=== PATIENT | female | born 1945 | race Caucasian/White ===

== ENCOUNTER 2017-11-29 09:09 | Observation (INO) | payer MEDICARE ==
[2017-11-29] MEDS ORDERED: Morphine 4 MG/ML VIAL ONE ×2 (09:29→12:18)
[2017-11-29] MEDS ORDERED: Ondansetron HCl/PF 4 MG/2 ML Vial ONE ×2 (09:29→12:18)
[2017-11-29] MEDS ORDERED: ISOVUE-370 76%-LOCM 1 ML ONE (10:09)
[2017-11-29 10:16] LABS: ALT (SGPT) 9 U/L (8-55); AST (SGOT) 20 U/L (5-34); Albumin 3.2 g/dL (3.4-4.8); Alkaline Phosphatase 112 U/L (40-150); Anion Gap 12 mmol/L (10-20); BUN (Urea Nitrogen) 5 mg/dL (9.8-20.1); Bilirubin, Total 0.5 mg/dL (0.2-1.2); Calc. Creatinine Clearance 0 mL/min (70-130); Calcium 8.7 mg/dL (7.8-10.44); Carbon Dioxide 30 mmol/L (23-31); Chloride 98 mmol/L (98-107); Estimated GFR-MDRD 78; Glucose 101 mg/dL (80-115); Lipase 7 U/L (8-78); Magnesium 1.5 mg/dL (1.6-2.6); Potassium 3.8 mmol/L (3.5-5.1); Protein, Total 6.2 g/dL (6.0-8.3); Sodium 136 mmol/L (136-145)
[2017-11-29 10:19] LABS: CKMB 0.7 ng/mL (0-6.6); Troponin I Less than 0.010 ng/mL (< 0.028)
[2017-11-29 10:20] LABS: #Eosinphils 0.1 thou/uL (0.0-0.7); #Lymphocytes 0.9 thou/uL (1.20-3.40); #Monocytes 0.4 thou/uL (0.11-0.59); #Neutrophils 4.7 thou/uL (1.40-6.50); %Basophils 0.7 % (0.0-1.0); %Eosinophils 1.7 % (0.0-10.0); %Lymphocytes 14.3 % (21.0-51.0); %Neutrophils 76.3 % (42.0-75.0); MDiff Complete? YES; Macrocytosis MODERATE=16-30 cells (100X) (0-5/hpf); Mean Corpuscular HGB CONC 34.3 g/dL (32.0-36.0); Mean Corpuscular Hemoglobin 37.5 pg (27.0-31.0); Mean Platelet Volume 6.9 fL (7.4-10.4); PLT Morphology Comment Appears Adequate; Platelet Count 211 thou/uL (130-400); RBC Distribution Width 13.1 % (11.5-14.5); Red Blood Cell (RBC) Count 3.72 mill/uL (4.20-5.40); White Blood Cell (WBC) Count 6.1 thou/uL (4.8-10.8)
--- NOTE | 2017-11-29 10:51 | RAD ---
PORTABLE AP CHEST: Date: 11/29/17 HISTORY: Weakness, nausea and vomiting for 3-4 days. UTI. COMPARISON: 09/02/16. FINDINGS: Cardiac silhouette and pulmonary vasculature are within normal limits. The right lung apex is partial ly obscured due to patient's overlying jaw and mandible. Lungs are otherwise clear. Degenerative rothman ges are seen in the spine. Vascular calcifications seen in the thoracic aorta. There has been no inte rval change from the prior study. IMPRESSION: No acute cardiopulmonary process. POS: JAYE
--- NOTE | 2017-11-29 11:43 | CT ---
CT ABDOMEN AND PELVIS WITH IV CONTRAST: Date: 11/29/17 HISTORY: Nausea, vomiting, decreased appetite, dark-colored urine, low back pain. FINDINGS: Lower thorax demonstrates evidence of old granulomatous disease. A small hiatal hernia is present. Ca lcified granulomas are seen in the spleen. The liver demonstrates decreased attenuation consistent wi th fatty infiltration. No hepatic mass or abnormal biliary ductal dilatation is seen. No calcified ga llstones are identified. The pancreas, adrenal glands, and kidneys appear normal. No free air, free fluid, or lymphadenopathy is seen in the abdomen or pelvis. Uterus is present with a IUD. The small bowel loops are not abnormally dilated. There is colonic diverticulosis without evid ence of diverticulitis. There are vascular calcifications without evidence of aneurysmal dilatation o f the abdominal aorta. Degenerative changes are present in the spine. There is wedge compression of L 3 vertebral body. IMPRESSION: 1. Old granulomatous disease. 2. Fatty liver. 3. Small hiatal hernia. 4. Colonic diverticulosis. POS: OFF
[2017-11-29 12:42] LABS: Bilirubin Negative (Negative); Blood, Urine Small (Negative); Glucose, Urine (Dipstick) Negative (Negative); Leukocyte Large (Negative); Nitrite Negative (Negative); Protein, Urine (Dipstick) Negative (Neg-Trace); Urobilinogen 0.2 mg/dL (0.2-1.0); pH, Urine 8.5 (5.0-9.0)
[2017-11-29 12:43] LABS: Clarity CLEAR (Clear)
[2017-11-29 12:45] LABS: Bacteria/HPF 4+ HPF (None Seen); Hyaline Casts/LPF NONE SEEN LPF (0-3 Hyaline); Squamous Epithelial 0-3 HPF (0-3); WBC/HPF 21-50 HPF (0-3)
[2017-11-29] MEDS ORDERED: cefTRIAXone\\ROCEPHIN 1 GM VIAL ONE (13:08)
--- NOTE | 2017-11-29 14:23 | PDOC.FPRHP ---
- History of Present Illness Chief Complaint: Nausea/Vomiting, and back pain History of Present Illness: 72yo F with PMH of presents with 5 day history of worsening nausea and vomiting. denies hematemesis. Last vomiting was today at 0600, vomiting less than 5 times per day. Pt reports very limited PO intake in the last 5 days due to nausea. Related symptoms of back pain in the "small of the back" bilaterally. Back pain has been constant and also worsening. Pain is exacerbated by movement and turning over in bed. Pt reports dark urine for 2 weeks, no dysuria, no hematuria. Pt has hx of UTI x2. No recent hospitalizations, no recent ABX treatment. - Allergies/Adverse Reactions Allergies Allergy/AdvReac Type Severity Reaction Status Date / Time codeine AdvReac Intermediate Verified 07/09/14 18:31 - Home Medications Medication Instructions Recorded Confirmed Type Furosemide [Lasix] 40 mg PO DAILY #0 tab 07/10/14 11/29/17 Rx Lisinopril [Zestril] 10 mg PO DAILY #0 tab 07/10/14 11/29/17 Rx Pantoprazole [Protonix] 40 mg PO DAILY #0 tab 07/10/14 11/29/17 Rx Acetaminophen [Tylenol Regular 650 mg PO Q4H PRN #0 tab 09/04/16 11/29/17 Rx Strength] Atorvastatin Calcium [Lipitor] 40 mg PO HS #30 tab 09/04/16 11/29/17 Rx Ciprofloxacin [Cipro] 500 mg PO 0600,2000 #24 tab 09/04/16 11/29/17 Rx Folic Acid [Folvite] 1 mg PO DAILY tab 09/04/16 11/29/17 Rx Ibuprofen [Motrin] 800 mg PO Q6H PRN #0 tab 09/04/16 11/29/17 Rx Loperamide HCl [Imodium] 2 mg PO PRN PRN #0 cap 09/04/16 11/29/17 Rx Metoprolol Succinate [Toprol XL] 25 mg PO DAILY tab 09/04/16 11/29/17 Rx predniSONE 20 mg PO DAILY #40 tab 09/04/16 11/29/17 Rx - History PMHx: CHF, HLD, GERD, Psoriasis PSHx: none FHx: Mother- breast cancer, Father- CAD Social: Tobacco- active, 60 pack years, EtOH- 14+ drinks per week "1mix drink in morning and at least 1 in evening", Drugs- denies - Review of Systems General: reports: fatigue. denies: fever/chills ENT: denies: nasal congestion, rhinorrhea Respiratory: reports: cough. denies: shortness of breath Cardiovascular: denies: chest pain, palpitation Gastrointestinal: reports: nausea, vomiting. denies: diarrhea, constipation Skin: denies: rashes, lesions Neurological: denies: syncope, seizure - Vital signs BP: [159/85] HR: [83] RR: [18] Tmax: [98.5] Pox: [94]% on [RA] Wt: [81kg] - Physical Exam Constitutional: NAD, awake, alert and oriented HEENT: normocephalic and atraumatic, EOMI, conjunctiva clear, MMM Heart: RRR, normal S1/S2, no murmurs/rubs/gallops, no edema -Lungs: decreased breath sounds bilaterally R Lung CTA, L lung feint inspiratory crackles at mid lung. symetric chest expansion Abdomen: soft, non-tender, bowel sounds present -Musculoskeletal: L flank pain to percussion -Skin: scaling and flaking on back and bilateral lower extremeties Psychiatric: normal mood and affect FMR H&P: Results - Labs Result Diagrams: 11/29/17 09:44 11/29/17 09:43 Lab results: WBC 6.1 thou/uL (4.8-10.8) 11/29/17 09:44 Hgb 14.0 g/dL (12.0-16.0) 11/29/17 09:44 Hct 40.7 % (36.0-47.0) 11/29/17 09:44 MCV 109.0 fL (78.0-98.0) H 11/29/17 09:44 Plt Count 211 thou/uL (130-400) 11/29/17 09:44 Neutrophils % 76.3 % (42.0-75.0) H 11/29/17 09:44 Sodium 136 mmol/L (136-145) 11/29/17 09:43 Potassium 3.8 mmol/L (3.5-5.1) 11/29/17 09:43 Chloride 98 mmol/L (98-107) 11/29/17 09:43 Carbon Dioxide 30 mmol/L (23-31) 11/29/17 09:43 BUN 5 mg/dL (9.8-20.1) L 11/29/17 09:43 Creatinine 0.74 mg/dL (0.6-1.1) 11/29/17 09:43 Glucose 101 mg/dL (80-115) 11/29/17 09:43 Calcium 8.7 mg/dL (7.8-10.44) 11/29/17 09:43 Total Bilirubin 0.5 mg/dL (0.2-1.2) 11/29/17 09:43 AST 20 U/L (5-34) 11/29/17 09:43 ALT 9 U/L (8-55) 11/29/17 09:43 Alkaline Phosphatase 112 U/L (40-150) 11/29/17 09:43 CK-MB (CK-2) 0.7 ng/mL (0-6.6) 11/29/17 09:44 B-Natriuretic Peptide 256.0 pg/mL (0-100) H 11/29/17 09:44 Serum Total Protein 6.2 g/dL (6.0-8.3) 11/29/17 09:43 Albumin 3.2 g/dL (3.4-4.8) L 11/29/17 09:43 Lipase 7 U/L (8-78) L 11/29/17 09:43 Urine Ketones Negative mg/dL (Negative) 11/29/17 12:10 Urine Blood Small (Negative) H 11/29/17 12:10 Urine Nitrite Negative (Negative) 11/29/17 12:10 Ur Leukocyte Esterase Large (Negative) H 11/29/17 12:10 Urine RBC 4-6 HPF (0-3) 11/29/17 12:10 Urine WBC 21-50 HPF (0-3) H 11/29/17 12:10 Ur Squamous Epith Cells 0-3 HPF (0-3) 11/29/17 12:10 Urine Bacteria 4+ HPF (None Seen) H 11/29/17 12:10 FMR H&P: A/P - Problem List (1) Pyelonephritis, acute Current Visit: No Status: Acute Code(s): N10 - ACUTE PYELONEPHRITIS (2) Pyuria Current Visit: No Status: Acute Code(s): N39.0 - URINARY TRACT INFECTION, SITE NOT SPECIFIED (3) Alcohol abuse Current Visit: No Status: Acute Code(s): F10.10 - ALCOHOL ABUSE, UNCOMPLICATED (4) CHF (congestive heart failure) Current Visit: No Status: Acute Code(s): I50.9 - HEART FAILURE, UNSPECIFIED (5) HLD (hyperlipidemia) Current Visit: No Status: Acute Code(s): E78.5 - HYPERLIPIDEMIA, UNSPECIFIED (6) Psoriasis Current Visit: No Status: Acute Code(s): L40.9 - PSORIASIS, UNSPECIFIED - Plan Pyelonephritis/pyuria vs. UTI A- Pt has pmh of UTI and has had dark urine [id number] with 5 days of lower back pain. L flank pain. UA- 21-50 WBC and 4+ bacteria and small urine blood. Pt vitals are stable SIRS (-) in all categories. WBC 6.1. Given rocephin and zofran in ED P- Contine tx with rocephin 1gm daily -UCx Nausea/Vomiting A- Pt reports improvement of symptoms with zofran in ED P- NS 75ml/hr -encourage PO intake -Zofran prn Alcohol Abuse A- Pt reports drinking at least two mix drinks per day starting in the AM P- GAYLA protocol CHF -BNP 256, was 118 1 year ago. Pt not complaining of cardiopulmonary symptoms -caution with fluids, monitor symptoms of fluid overload -home meds HLD -home meds Psoriasis -reports to be at baseline lvl of symptoms with no current medical treatment -no meds at this time, FMR H&P: Upper Level - Pertinent history 72 yr old female with PMH as listed above who presents for 5 days of increased N /V. She reports dark urine for 2 weeks. Today she just started dry heaving and decided to come in. She reports minimal intake for last 4 days and no BM for 4 days. She reports some low back pain going on for about 2-3 months. She denies fever and chills. Denies hematuria. She has recently moved close to her daughter and living in an . She doesn't like the situation. She drinks alcohol, mixed drinks a couple times a day but reports less use in the last month. She smokes a pack a day. - Pertinent findings Gen: NAD, obese Heart: RRR, no M/R/G Lungs: CTAB, no W/R/R Abd: mild tenderness in RLQ, non tender, BS normal active Ext: No edema in BLE trop neg x 1 WBC: 6.1 HGB: 14. HCT: 40.7 BNP 256 Lipase: 7 BUN: 5 cr: 0.74 EKG: q wave in lead II, III, no ST changes, Normal sinus rhythm - Plan Date/Time: 11/29/17 1422 I, [Marilu Maynard], have evaluated this patient and agree with findings/plan as outlined by healthcare administration internship resident. Pertinent changes/additions are listed here. 72 yr old female presents with N/V and low back pain UTI -afebrile, no tachycardia, no leukocytosis, non tachypnic -started on ceftriaxone in ER, will continue -500 ml bolus given in ER -cont on light fluids until tolerating PO -hx of peterson sensitive e coli and pseudmonas UTI Nausea/vomiting that is likely 2/2 to UTI -no evidence of pyelonephritis on CT. - zofran or phenergan if needed Mild hypovolemia -fluids as above HFpEF -last ECHO in 06/2014 with EF 55-60%, diastolic dysfunction -BNP 256, up from 118 during hospitalization 1 year ago -asymptomatic, no exacerbation Alcohol abuse -no hx of DTs or withdrawals -reports minimal alcohol use in last month -ASE protocol tobacco abuse -1 pk a day for 60 years -nicoderm patch HTN -cont home meds HLD -cont home meds hx of retained IUD chronic cutaneous psoriasis -encourage hygeine and moisturizer hx of gout intrigo -nystatin cream BID Hypomagnesemia -slow mag BID x 2 Code status: FULL DVT ppx: lovenox GI ppx: none, PRN tums PCP: Rox DEMPSEY Attending Addendum - Attending Addendum Date/Time: 11/29/17 1901 I personally evaluated the patient and discussed the management with Dr. Conte I agree with the History, Examination, Assessment and Plan documented above with any addition or exceptions noted below.History of prior T7 fracture, CT abdomen note incidental wedging at L3 of questionable significance regarding LBP. Agree with rehydration, antiemetics, Rocephin and continued observation. Current living situation needs assessment for best options available to patient. Lab notable for marked macrocytosis (history of ETOH abuse).
[2017-11-29 16:10] VITALS: BMI 29.9
[2017-11-29] MEDS ORDERED: Ondansetron HCl/PF 4 MG/2 ML Vial IVP PRN (16:26)
[2017-11-29] MEDS ORDERED: Ondansetron ODT 4 MG TAB SL PRN (16:26)
[2017-11-29] MEDS ORDERED: Acetaminophen 650 MG Suppository PR PRN (17:12)
[2017-11-29] MEDS: Ondansetron HCl/PF 4 MG/2 ML Vial IVP PRN (17:21)
[2017-11-29] MEDS ORDERED: Nicotine 14 MG PATCH TD SCH (18:00)
[2017-11-29] MEDS ORDERED: Promethazine 25 MG TAB PO PRN (18:41)
[2017-11-29] MEDS: Sodium Chloride 0.9% 1,000 ML IV SCH (18:44)
[2017-11-29] MEDS: Famotidine 20 MG TAB PO SCH (19:59)
[2017-11-29] MEDS ORDERED: Atorvastatin Calcium 40 MG TAB PO SCH (21:00)
[2017-11-30] MEDS ORDERED: Acetaminophen 325 MG TAB PO PRN (01:11)
[2017-11-30] MEDS: Ondansetron HCl/PF 4 MG/2 ML Vial IVP PRN (02:14)
[2017-11-30 04:29] LABS: #Eosinphils 0.2 thou/uL (0.0-0.7); #Lymphocytes 1.1 thou/uL (1.20-3.40); #Monocytes 0.6 thou/uL (0.11-0.59); #Neutrophils 4.8 thou/uL (1.40-6.50); %Basophils 0.5 % (0.0-1.0); %Eosinophils 2.6 % (0.0-10.0); %Monocytes 8.6 % (0.0-10.0); %Neutrophils 71.4 % (42.0-75.0); Hemoglobin 13.1 g/dL (12.0-16.0); Mean Corpuscular Hemoglobin 37.6 pg (27.0-31.0); Mean Platelet Volume 7.2 fL (7.4-10.4); Platelet Count 211 thou/uL (130-400); RBC Distribution Width 13.5 % (11.5-14.5); Red Blood Cell (RBC) Count 3.48 mill/uL (4.20-5.40); White Blood Cell (WBC) Count 6.7 thou/uL (4.8-10.8)
[2017-11-30 04:58] LABS: Anion Gap 15 mmol/L (10-20); BUN (Urea Nitrogen) 5 mg/dL (9.8-20.1); Calc. Creatinine Clearance 92 mL/min (70-130); Calcium 8.3 mg/dL (7.8-10.44); Carbon Dioxide 26 mmol/L (23-31); Chloride 102 mmol/L (98-107); Estimated GFR-MDRD 79; Glucose 87 mg/dL (80-115); Potassium 3.7 mmol/L (3.5-5.1); Sodium 139 mmol/L (136-145)
--- NOTE | 2017-11-30 05:28 | PDOC.FM ---
- Subjective Subjective: No acute events overnight. Patient states she is still having significant pain in her lower back. States it is about a 6-7/10 in severity while lying still and is almost unbearable while trying to walk or make any other movements. N/V have been well controlled & is tolerating food PO. Denies any chest pain, SOB, dysuria, hematuria. Reports that she has trouble swallowing pills and would like to have small antibiotic pills to go home on if leaving today. - Objective MAR Reviewed: Yes Vital Signs & Weight: Vital Signs (12 hours) Temp Pulse Resp BP Pulse Ox 11/30/17 00:00 97.6 F 78 12 133/78 96 11/29/17 20:00 97.4 F L 90 12 11/29/17 19:16 97.4 F L 90 12 166/89 H 92 L 11/29/17 17:50 97.8 F 85 12 Weight Weight 81.465 kg Result Diagrams: 11/30/17 03:30 11/30/17 03:30 Radiology Reviewed by me: Yes (Abd CT--> diverticulosis; no perinephric stranding or pyelo) <Mallory Alexander - Last Filed: 11/30/17 13:08> - Objective Vital Signs & Weight: Vital Signs (12 hours) Temp Pulse Resp BP BP Pulse Ox 11/30/17 11:30 98.1 F 78 16 161/80 H 100 11/30/17 09:19 161/76 H 11/30/17 08:15 98.3 F 80 18 11/30/17 07:40 98.3 F 80 18 161/76 H 93 L Weight Admit Weight 81.193 kg Weight 81.465 kg I&O: 11/29/17 11/30/17 12/01/17 06:59 06:59 06:59 Intake Total 760 1451 Balance 760 1451 Result Diagrams: 11/30/17 03:30 11/30/17 03:30 <Lia Early - Last Filed: 11/30/17 19:33> Phys Exam - Physical Examination Constitutional: NAD HEENT: moist MMs Neck: supple, full ROM Respiratory: no wheezing, no rales, no rhonchi, clear to auscultation bilateral Cardiovascular: RRR, no significant murmur Gastrointestinal: soft, non-tender, no distention, positive bowel sounds Musculoskeletal: no edema L-sided CVA tenderness Neurological: non-focal, normal sensation, moves all 4 limbs Psychiatric: normal affect, A&O x 3 Skin: no rash, normal turgor <Mallory Alexander - Last Filed: 11/30/17 13:08> Dx/Plan (1) Pyelonephritis, acute Code(s): N10 - ACUTE PYELONEPHRITIS Status: Acute (2) CHF (congestive heart failure) Code(s): I50.9 - HEART FAILURE, UNSPECIFIED Status: Chronic (3) HTN (hypertension) Code(s): I10 - ESSENTIAL (PRIMARY) HYPERTENSION Status: Acute (4) HLD (hyperlipidemia) Code(s): E78.5 - HYPERLIPIDEMIA, UNSPECIFIED Status: Acute (5) Alcohol abuse Code(s): F10.10 - ALCOHOL ABUSE, UNCOMPLICATED Status: Acute (6) Psoriasis Code(s): L40.9 - PSORIASIS, UNSPECIFIED Status: Acute (7) Macrocytic Code(s): D75.89 - OTHER SPECIFIED DISEASES OF BLOOD AND BLOOD-FORMING ORGANS Status: Acute (8) Gout Code(s): M10.9 - GOUT, UNSPECIFIED Status: Acute (9) GERD (gastroesophageal reflux disease) Code(s): K21.9 - GASTRO-ESOPHAGEAL REFLUX DISEASE WITHOUT ESOPHAGITIS Status: Acute - Plan Plan: 72YOF w/ PMH significant for CHF, HTN, HLD & EtOH abuse who presents w/ a CC of progressively worsening N/V for past 5 days with associated dark urine & flank pain for the last 2 weeks. 1. Pyelonephritis/pyuria vs. UTI w/ associated N/V: - UA significant for UTI but Abd CT not convincing for pyelo. Will continue with IV Abx for one more day and likely d/c home later today on PO Abx if vitals remain stable and patient is having adequate PO intake. - Will consider deescalating IVFs today as patient is tolerating food and liquids well PO. - Will continue zofran PRN for N/V. - Urine culture pending. Will adjust Abx accordingly as needed pending sensitivities. 2. h/o Alcohol Abuse - Pt reports drinking a minimum of 2 whiskey drinks/day for a number of years ( one of which is first thing in the AM). - Will continue GAYLA protocol. 3. CHF - BNP 256 on admission which is slightly increased from 118 ~1 year ago. - No concern for acute exacerbation at this time as patient denies any cardiopulmonary sxs and lungs CTAB w/o LE edema. - Will consider deescalating IVFs as patient is tolerating HH diet well PO. - Will continue home meds. 4. HLD - Aware, will continue home meds. 5. HTN: - Aware, will continue home meds. 6. GERD: - Aware, will continue home meds. 7. Psoriasis -Aware, patient not on any home meds at this time. Dispo: Possible d/c home later today on PO antibiotics. <Mallory Alexander - Last Filed: 11/30/17 13:08> Attending Addendum - Attending Addendum Date/Time: 11/30/171929 I personally evaluated the patient at 1225 pm and discussed the management with Dr. Alexander. I agree with the History, Examination, Assessment and Plan documented above with any addition or exceptions noted below. UTI- on IV Rocephin- will transition to po (to discuss pill size with pharmacy to ensure compliance). Intermittent low back pain. Mild R flank pain but no true CVA tenderness and patient afebrile with normal wbc and CT that didn't show pyelonephritis. Patient with quetionable dysphagia- speech eval and cleared and nurse has been crushing her pills. May need further outpatient workup if persistent. Patient has been off bp meds. Will restart and f/u as outpatient. <Lia Early - Last Filed: 11/30/17 19:33>
[2017-11-30] MEDS ORDERED: Ketorolac Tromethamine 30 MG/ML VIAL IVP SCH (06:45)
[2017-11-30] MEDS ORDERED: Enoxaparin Sodium 30 MG/0.3 ML SYRINGE SC SCH (09:00)
[2017-11-30] MEDS ORDERED: Folic Acid 1 MG TAB PO SCH (09:00)
[2017-11-30] MEDS ORDERED: Lisinopril 10 MG TAB PO SCH (09:00)
[2017-11-30] MEDS: Sodium Chloride 0.9% 1,000 ML IV SCH (09:18)
[2017-11-30] MEDS: Famotidine 20 MG TAB PO SCH (09:18)
[2017-11-30 11:58] VITALS: BP 161/80; TEMP 98.1
[2017-11-30] MEDS ORDERED: cefTRIAXone\\ROCEPHIN 1 GM in Sodium Chloride 0.9% 100 ML IVPB SCH (13:00)
--- NOTE | 2017-12-02 13:50 | DIS-2 ---
DATE OF ADMISSION: 11/29/2017 DATE OF DISCHARGE: 11/30/2017 RESIDENT: Mallory Alexander MD ADMITTING ATTENDING: Kavin Avalos MD DISCHARGE ATTENDING: Lia Early M.D. CONSULTATIONS: None. PROCEDURES: 1. Chest x-ray, which showed no acute cardiopulmonary process. 2. Abdomen/pelvis CT, which showed old granulomatous disease, fatty liver, a small hiatal hernia, and colonic diverticulosis. Kidneys appeared normal. PRIMARY DIAGNOSES: 1. Acute pyelonephritis vs. UTI. 2. Pyuria. SECONDARY DIAGNOSES: 1. History of alcohol abuse. 2. Congestive heart failure with preserved ejection fraction. 3. Hyperlipidemia. 4. Psoriasis. 5. Macrocytic anemia. DISCHARGE MEDICATIONS: 1. Furosemide 40 p.o. daily. 2. Gabapentin 400 mg p.o. daily. 3. Metoprolol 12.5 mg p.o. daily. 4. Cefdinir 125 mg/5 mL, 300 mg p.o. q.12 hours. 5. Lisinopril 5 mg p.o. daily. 6. Folic acid 1 mg p.o. daily. 7. Zofran 4 mg sublingual q.6 hours p.r.n. DISCONTINUED MEDICATIONS: None. HISTORY OF PRESENT ILLNESS AND HOSPITAL COURSE: The patient is a 72-year-old female with a past medical history significant for congestive heart failure with preserved ejection fraction, a history of alcohol abuse, and hyperlipidemia, who presented to the ED with a chief complaint of 5 days of worsening nausea and vomiting as well as back pain and dark urine for the last 2 weeks. In the ED, initial basic lab work revealed a white blood count that was within normal limits at 6.1 and a normal CMP. A urinalysis was also obtained , which was significant for small blood, large leukocyte esterase, 21-50 white blood cells, and 4+ bacteria. The patient was then presumed to have a UTI; however, given the patient's history of back pain, an abdominal CT was also obtained, which was negative for any signs of perinephric stranding or hydronephrosis suggestive of the possibility of pyelonephritis. In the ED, the patient was given 1 gram of Rocephin, 8 mg of IV morphine, 8 mg of IV Zofran, and a 500 mL bolus of normal saline. She was then admitted and sent to the floor for monitoring overnight. On the floor, the patient was continued on her home medications as well as IV Rocephin. She was also given IV ketorolac for her back pain overnight, which significantly improved it. The patient remained afebrile and in stable condition tolerating food and liquids PO the entire next day on the floor and was therefore cleared for discharge. On the day of discharge, she was sent home on on p.o. Omnicef and instructed to follow up with her primary care provider within 1 week of discharge. DISCHARGE INSTRUCTIONS: 1. Location: Home. 2. Diet: Heart healthy diet. 3. Activity: As tolerated. No restrictions. 4. Followup: The patient was instructed to follow up with her primary care provider within 1 week of discharge. PINKY
== END 2017-11-30 15:33 | disposition home or self-care (01) ==
LOC: ERS 09:09 → 2SW 15:30
PROVIDERS: ADMIT Family Medicine; ATTEND Family Medicine
DX: N39.0 Urinary tract infection, site not specified (principal); L40.9 Psoriasis, unspecified; E78.5 Hyperlipidemia, unspecified; D53.9 Nutritional anemia, unspecified; I50.9 Heart failure, unspecified; Z79.899 Other long term (current) drug therapy; Z88.5 Allergy status to narcotic agent
CPT/HCPCS: 51701; 71045; 74177; 80048; 82553; 83690; 83735; 83880; 84484; 85025; 87077; 87086; 87186; 93005; 96361 ×3; 96365; 96375 ×2; 96376 ×3; 99285; G0378 ×2; 36415; 80053; 81003; 81015; 84443; A4353; G8996-GN-CI; G8997-GN-CI; J0696; J1650; J1885; J2270; J2405; J7050

== ENCOUNTER 2018-02-10 13:18 | Emergency (ER) | payer MEDICARE ==
[2018-02-10 15:46] LABS: Hemoglobin 15.9 g/dL (12.0-16.0); Mean Corpuscular HGB CONC 32.2 g/dL (32.0-36.0); Mean Corpuscular Hemoglobin 33.9 pg (27.0-31.0); Mean Platelet Volume 9.1 fL (7.4-10.4); Platelet Count 302 thou/uL (130-400); RBC Distribution Width 13.4 % (11.5-14.5); Red Blood Cell (RBC) Count 4.69 mill/uL (4.20-5.40); White Blood Cell (WBC) Count 11.2 thou/uL (4.8-10.8)
[2018-02-10 16:06] LABS: #Eosinphils 0.1 thou/uL (0.0-0.7); #Lymphocytes 1.3 thou/uL (1.20-3.40); #Monocytes 1.1 thou/uL (0.11-0.59); #Neutrophils 8.8 thou/uL (1.40-6.50); %Basophils 0.4 % (0.0-1.0); %Eosinophils 0.6 % (0.0-10.0); %Lymphocytes 11.4 % (21.0-51.0); %Monocytes 9.4 % (0.0-10.0); %Neutrophils 78.3 % (42.0-75.0); PLT Morphology Comment Appears Adequate
[2018-02-10 16:11] LABS: ALT (SGPT) 14 U/L (8-55); AST (SGOT) 24 U/L (5-34); Alkaline Phosphatase 90 U/L (40-150); Anion Gap 16 mmol/L (10-20); BUN (Urea Nitrogen) 5 mg/dL (9.8-20.1); Bilirubin, Total 0.6 mg/dL (0.2-1.2); Calc. Creatinine Clearance 0 mL/min (70-130); Calcium 9.6 mg/dL (7.8-10.44); Carbon Dioxide 29 mmol/L (23-31); Chloride 95 mmol/L (98-107); Estimated GFR-MDRD 90; Globulin 3.8 g/dL (2.4-3.5); Glucose 110 mg/dL (80-115); Potassium 3.4 mmol/L (3.5-5.1); Protein, Total 6.8 g/dL (6.0-8.3); Sodium 137 mmol/L (136-145)
[2018-02-10 16:21] LABS: CKMB 0.9 ng/mL (0-6.6)
[2018-02-10 16:28] LABS: Troponin I Less than 0.010 ng/mL (< 0.028)
--- NOTE | 2018-02-10 16:44 | RAD ---
2 VIEWS CHEST: Date: 02/10/18 PROVIDED CLINICAL HISTORY: Nausea. FINDINGS: Comparison with 11/29/17. Cardiac silhouette is within normal limits. Vascular calcification involves the aortic arch. There is no focal consolidation, pleural fluid, or pneumothorax apparent. Vascular calcification is noted. Ca lcification on the lateral view presumably reflects granuloma. IMPRESSION: No evidence for an acute cardiopulmonary process. POS: OFF
--- NOTE | 2018-02-10 16:52 | RAD ---
LEFT ELBOW 4 VIEWS: Date: 02/10/18 PROVIDED CLINICAL HISTORY: Left elbow pain. FINDINGS: There is questioned cortical irregularity at the radial margin of the radial head on the frontal view that may reflect nondisplaced fracture or osteophyte formation. There is elbow joint capsular disten tion compatible with effusion. Osteophytes are seen about the elbow. Alignment appears anatomic. Join t spaces appear preserved. IMPRESSION: 1. Possible nondisplaced radial head fracture versus osteophyte formation. 2. Elbow joint effusion. POS: OFF
[2018-02-10] MEDS ORDERED: Acetaminophen 500 MG TAB ONE (17:24)
== END 2018-02-10 18:38 | disposition home or self-care (01) ==
LOC: ERS 13:18
DX: S52.122A Displaced fracture of head of left radius, initial encounter for closed fracture (principal); I50.9 Heart failure, unspecified; G62.9 Polyneuropathy, unspecified; F17.210 Nicotine dependence, cigarettes, uncomplicated; Z79.82 Long term (current) use of aspirin; Z79.899 Other long term (current) drug therapy; X58.XXXA Exposure to other specified factors, initial encounter
CPT/HCPCS: 29065; 36415; 71046; 80053; 82553; 83880; 84484; 85025; 93005

== ENCOUNTER 2019-08-14 14:02 | Emergency (ER) | payer MEDICARE ==
[~2019-08-14 14:02] MED LIST: Iopamidol-370 76% 500 ML 1 ML ONE
[2019-08-14 14:44] LABS: #Basophils 0.1 thou/uL (0.0-0.2); #Eosinphils 0.1 thou/uL (0.0-0.7); #Lymphocytes 1.3 thou/uL (1.20-3.40); #Monocytes 0.4 thou/uL (0.11-0.59); #Neutrophils 6.6 thou/uL (1.40-6.50); %Basophils 0.8 % (0.0-1.0); %Eosinophils 0.7 % (0.0-10.0); %Lymphocytes 14.9 % (21.0-51.0); %Neutrophils 78.6 % (42.0-75.0); Hemoglobin 13.1 g/dL (12.0-16.0); Mean Corpuscular HGB CONC 32.6 g/dL (32.0-36.0); Mean Corpuscular Hemoglobin 35.2 pg (27.0-31.0); Mean Platelet Volume 7.5 fL (7.4-10.4); Platelet Count 280 thou/uL (130-400); RBC Distribution Width 14.4 % (11.5-14.5); Red Blood Cell (RBC) Count 3.71 mill/uL (4.20-5.40); White Blood Cell (WBC) Count 8.4 thou/uL (4.8-10.8)
[2019-08-14 14:57] LABS: MDiff Complete? YES; Macrocytosis SLIGHT = 6-15 cells (100X) (0-5/hpf); Platelet Morphology Comment Appears Adequate
--- NOTE | 2019-08-14 14:57 | RAD ---
EXAM: CHEST ONE VIEW HISTORY: Weakness, decreased mobility. Decreased appetite. Patient diagnosed with UTI. COMPARISON: 02/10/2018 FINDINGS: The cardiac silhouette and pulmonary vasculature is within normal limits. There is an increased densi ty medial right lung base which was not appreciated on prior chest x-ray, but this finding was seen on the fighting vehicle infantryman view of the lower chest on CT abdomen on 11/29/2017 likely due to an epicardial fat pad. The lungs are otherwise clear. Degenerative changes are again present in the spine. Osteopenia is present. Vascular calcifications are seen in the thoracic aorta. A calcification is again seen overly ing the mediastinum likely due to calcified lymph node. IMPRESSION: No acute cardiopulmonary process.
[2019-08-14 15:08] LABS: ALT (SGPT) 12 U/L (8-55); AST (SGOT) 21 U/L (5-34); Albumin 3.6 g/dL (3.4-4.8); Alkaline Phosphatase 89 U/L (40-110); Anion Gap 17 mmol/L (10-20); BUN (Urea Nitrogen) 12 mg/dL (9.8-20.1); Bilirubin, Total 0.4 mg/dL (0.2-1.2); Calc. Creatinine Clearance 0 mL/min (70-130); Calcium 9.4 mg/dL (7.8-10.44); Carbon Dioxide 28 mmol/L (23-31); Chloride 95 mmol/L (98-107); Estimated GFR-MDRD 71; Globulin 3.3 g/dL (2.4-3.5); Glucose 71 mg/dL (83-110); Lipase 8 U/L (8-78); Potassium 3.2 mmol/L (3.5-5.1); Protein, Total 6.9 g/dL (6.0-8.3); Sodium 137 mmol/L (136-145)
[2019-08-14 15:25] LABS: Bacteria/HPF None Seen HPF (None Seen); Bilirubin Negative (Negative); Blood, Urine Negative (Negative); Clarity Clear (Clear); Glucose, Urine (Dipstick) Normal (Negative); Leukocyte 25 Leu/uL (Negative); Nitrite Negative (Negative); Protein, Urine (Dipstick) 10 mg/dL (Neg-Trace); RBC/HPF 0-3 HPF (0-3); Squamous Epithelial 0-3 HPF (0-3); Urobilinogen Normal mg/dL (Less than 2); WBC/HPF 0-3 HPF (0-3)
--- NOTE | 2019-08-14 16:10 | CT ---
EXAM: CT angiogram chest and abdomen with IV contrast and 3-D reconstructions PROVIDED CLINICAL HISTORY: Weakness and nausea vomiting for 3 to 4 days. Diaphoresis and decreased appetite. Dark-colored urine. . COMPARISON: CT abdomen on 11/29/2017 FINDINGS: Vascular calcifications are seen in the coronary arteries as well as involving the thoracic and abdom inal aorta and visualized iliac arteries. The thoracic and abdominal aorta are normal in caliber without evidence of an aortic dissection. Mild eccentric atherosclerotic plaque is seen in the suprar enal abdominal aorta. Mediastinal structures have a normal appearance with a few nonenlarged lymph nodes seen. There is motion within the lungs bilaterally. Minimal groundglass density is seen within the posterol ateral right upper lobe (image 26, series 2). This density is not well evaluated due to motion through this region. Findings could relate to volume loss or scarring. Pneumonitis is a possibility. Follow-up evaluation is recommended to ensure resolution. Additional scattered areas of atelectasis are seen in the lungs bilaterally. Calcified granuloma is seen in the right lung base with prominent calcified lymph node posterior mediastinum. No pleural effusion is seen, and there is no consolidation in the lungs bilaterally. Mild diminished attenuation of the liver is present suggesting diffuse fatty infiltration. Calcified granulomata are seen in the spleen. The pancreas, bilateral adrenal glands, and right kidney demonstrate a normal CT appearance. A subcen timeter too small to characterize hypodense lesion is seen in the inferior pole left kidney. A T-shaped intrauterine contraceptive device is partially imaged within the limited visualized uterin e fundus. Urinary bladder is not imaged on this exam. A few scattered colonic diverticuli are visualized. Loops of small bowel are normal in caliber. No free fluid, fluid collection, or lymphadenopathy is seen in the abdomen or pelvis. Multilevel degenerative changes are seen in the spine. Again noted is stable degree of height loss in volving the compression fracture L3 vertebral body. IMPRESSION: 1 Mild patchy/ground glass density posterolateral right upper lobe. This could be related to volume l oss as there is respiratory motion through this region. However, area of scarring or focal area of pneumonitis is a possibility. Follow-up CT examination of the thorax in 4-6 months is recommended. 2. Vascular calcifications and atherosclerotic plaque in the thoracic and abdominal aorta, but the th oracic and abdominal aorta are normal in caliber without evidence of an aortic dissection. 3. Fatty infiltration of the liver. 4. Colonic diverticulosis. 5. Stable degree of height loss of the compression fracture L3 vertebral body.
--- NOTE | 2019-08-19 16:09 | EKG ---
Test Reason : Blood Pressure : / mmHG Vent. Rate : 087 BPM Atrial Rate : 087 BPM P-R Int : 178 ms QRS Dur : 078 ms QT Int : 392 ms P-R-T Axes : 060 014 082 degrees QTc Int : 471 ms Normal sinus rhythm Possible Inferior infarct , age undetermined Abnormal ECG Confirmed by JOHN SAMPSON DO ([id number]), managing editor CARL SLOAN ([id number]) on 08/19/2019 4:09:03 PM Referred By: Confirmed By:JOHN SAMPSON DO
== END 2019-08-14 20:17 ==
LOC: ERS 14:02
DX: R53.1 Weakness (principal); R53.81 Other malaise; I50.9 Heart failure, unspecified
CPT/HCPCS: 36416; 51701; 71045; 71275; 72191; 74175; 80053; 81003; 81015; 83690; 84484; 85025; 87086; 93005; 94760; A4353; Q9967

== ENCOUNTER 2019-09-03 18:49 | Inpatient (IN) | payer MEDICARE ==
[2019-09-03 19:59] LABS: #Basophils 0.1 thou/uL (0.0-0.2); #Eosinphils 0.2 thou/uL (0.0-0.7); #Lymphocytes 1.6 thou/uL (1.20-3.40); #Monocytes 0.4 thou/uL (0.11-0.59); #Neutrophils 3.6 thou/uL (1.40-6.50); %Basophils 1.4 % (0.0-1.0); %Eosinophils 3.1 % (0.0-10.0); %Lymphocytes 27.5 % (21.0-51.0); %Monocytes 6.7 % (0.0-10.0); %Neutrophils 61.3 % (42.0-75.0); Hemoglobin 11.9 g/dL (12.0-16.0); Mean Corpuscular Hemoglobin 33.1 pg (27.0-31.0); Mean Platelet Volume 7.3 fL (7.4-10.4); Platelet Count 385 thou/uL (130-400); RBC Distribution Width 14.9 % (11.5-14.5); White Blood Cell (WBC) Count 5.8 thou/uL (4.8-10.8)
[2019-09-03 20:15] LABS: Bacteria/HPF None Seen HPF (None Seen); Bilirubin Negative (Negative); Blood, Urine Negative (Negative); Clarity Clear (Clear); Glucose, Urine (Dipstick) Normal (Negative); Leukocyte 75 Leu/uL (Negative); Nitrite Negative (Negative); Protein, Urine (Dipstick) Negative (Neg-Trace); RBC/HPF 0-3 HPF (0-3); Squamous Epithelial 0-3 HPF (0-3); Urobilinogen Normal mg/dL (Less than 2)
[2019-09-03 20:18] LABS: ALT (SGPT) 16 U/L (8-55); AST (SGOT) 25 U/L (5-34); Albumin 3.2 g/dL (3.4-4.8); Alkaline Phosphatase 86 U/L (40-110); Anion Gap 11 mmol/L (10-20); BUN (Urea Nitrogen) 6 mg/dL (9.8-20.1); Bilirubin, Total 0.3 mg/dL (0.2-1.2); CK (CPK) 16 U/L (29-168); Calc. Creatinine Clearance 0 mL/min (70-130); Calcium 8.8 mg/dL (7.8-10.44); Carbon Dioxide 30 mmol/L (23-31); Chloride 103 mmol/L (98-107); Estimated GFR-MDRD 67; Globulin 3.1 g/dL (2.4-3.5); Glucose 74 mg/dL (83-110); Potassium 3.3 mmol/L (3.5-5.1); Protein, Total 6.3 g/dL (6.0-8.3); Sodium 141 mmol/L (136-145)
--- NOTE | 2019-09-03 20:36 | CT ---
CT BRAIN WITHOUT CONTRAST: 09/03/19 HISTORY: Altered mental status. COMPARISON: CT brain 2017. 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 No acute hemorrhage. Extensive microvascular ischemic rothman ges. No midline shift. No mass effect. No large volume territorial infarctions. Calvarium is intact. The p aranasal sinuses and mastoids are relatively clear. IMPRESSION: Chronic findings. No acute intracranial abnormality. POS: HOME
--- NOTE | 2019-09-03 20:37 | RAD ---
CHEST ONE VIEW: 09/03/19 HISTORY: Dyspnea. COMPARISON: Radiograph 08/14/19. FINDINGS: Lungs are mildly hypoinflated. Heart size is mildly enlarged. Mild calcifications of the transverse a august. Degenerative changes of the acromioclavicular joints. No confluent air space, consolidation, pn eumothorax or effusion. IMPRESSION: No acute intrathoracic abnormality. POS: HOME
[2019-09-03] MEDS ORDERED: Aspirin Chewable 81 MG TAB ONE (20:57)
[2019-09-03] MEDS ORDERED: Acetaminophen 500 MG TAB ONE (21:05)
[2019-09-03] MEDS ORDERED: Ketorolac Tromethamine 30 MG/ML VIAL ONE (21:05)
[2019-09-03] MEDS ORDERED: Senokot S 8.6-50 MG TAB PO PRN (23:14)
[2019-09-03] MEDS ORDERED: Ondansetron ODT 4 MG TAB PO PRN (23:14)
[2019-09-03] MEDS ORDERED: Calcium Carbonate 500 MG ChewTAB PO PRN (23:14)
[2019-09-03] MEDS ORDERED: Acetaminophen 325 MG TAB PO PRN (23:14)
[2019-09-03] MEDS ORDERED: Ondansetron PF 4 MG/2 ML Vial IVP PRN (23:14)
[2019-09-03 23:42] LABS: Phosphorus 3.7 mg/dL (2.3-4.7)
--- NOTE | 2019-09-03 23:45 | PDOC.FPRHP ---
- History of Present Illness Chief Complaint: Increased Weakness History of Present Illness: Pt is a 74 yo F with pmh of alcohol abuse, MDD, HTN, HFpEF, GERD, CKD3, Tobacco abuse who present for increased weakness and dizziness. The patient was recently at [facility] for rehab. She was discharge on Saturday and followed up in clinic earlier this week. She says she has had dizziness and weakness for a long time, but she almost had several falls, so she called home health and they recommended her coming in and being seen. Pt reports having some numbness and tingling pain in her feet and hands bilaterally. Denies any loss of bowel or bladder function. Pt denies any recent trauma or injury. Pt denies ever being told she has PVD. Pt was not aware of stroke in past. Pt deneis any fever or chills. Pt denies any chest pain or SOB. Pt reported weakness in LE bilaterally. 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 She was given Tylenol, Toradol, and ASA. - Allergies/Adverse Reactions Allergies Allergy/AdvReac Type Severity Reaction Status Date / Time codeine AdvReac Intermediate Verified 09/04/19 00:59 - Home Medications Medication Instructions Recorded Confirmed Type Mirtazapine [Remeron Soltab] 30 mg PO HS 09/04/19 09/04/19 History Montelukast Sodium [Singulair] 10 mg PO HS 09/04/19 09/04/19 History Potassium Chloride [Klor-Con 10] 10 meq PO DAILY 09/04/19 09/04/19 History - History PMHx: CHF, Alcohol Abuse, HTN, HFpEF, GERD, CKD3, Tobacco Abuse PSHx: None FHx: Mom- Breast Cancer (53), Dad- CAD, BALL, Stroke (76) Social: Smokes 1PPD since she was 14, Smoked herbal plant since Age 7 (was to prevent parasites), Alcohol- mixed drink daily, No recreational drugs. - Review of Systems General: denies: fever/chills, weight/appetite/sleep changes Eyes: denies: vision changes ENT: denies: nasal congestion Respiratory: denies: cough, congestion, shortness of breath Cardiovascular: denies: chest pain, edema Gastrointestinal: reports: diarrhea. denies: nausea, vomiting, constipation, abdominal pain Genitourinary: denies: dysuria Skin: denies: rashes, lesions, itching Musculoskeletal: denies: pain, tenderness, stiffness, swelling Neurological: reports: numbness (Pt reported some numbness and tingling in LE upon my evaluation), weakness (Pt reported weakness in LE bilaterally.), other ( dizziness). denies: syncope, seizure - Vital signs BP: 105/57 HR: 99 RR: 21 Tmax: 97.8 Pox: 99% on RA Wt: 79.8 kg - Physical Exam Constitutional: NAD, awake, alert and oriented HEENT: normocephalic and atraumatic, PERRLA, EOMI, conjunctiva clear, no scleral icterus, MMM, oropharynx clear Neck: supple, no LAD Heart: RRR, normal S1/S2, no murmurs/rubs/gallops -Heart: Decreased dorsalis pedis pulse Lungs: CTAB, no respiratory distress, good air movement Abdomen: soft, non-tender, bowel sounds present Musculoskeletal: normal structure, normal tone Neurological: no focal deficit, CN II-XII intact -Neurological: Strength: 4/5 throughout, Sensation intact, No dysdidokinesia, Reflexes 1+ brachial and tibial Skin: no rash/lesions Heme/Lymphatic: no unusual bruising or bleeding, no purpura, no petechia -Psychiatric: anxious mood FMR H&P: Results - Labs Result Diagrams: 09/04/19 04:52 09/04/19 04:52 Lab results: WBC 5.8 thou/uL (4.8-10.8) 09/03/19 19:40 Hgb 11.9 g/dL (12.0-16.0) L 09/03/19 19:40 Hct 38.5 % (36.0-47.0) 09/03/19 19:40 MCV 107.0 fL (78.0-98.0) H 09/03/19 19:40 Plt Count 385 thou/uL (130-400) 09/03/19 19:40 Neutrophils % 61.3 % (42.0-75.0) 09/03/19 19:40 Sodium 141 mmol/L (136-145) 09/03/19 19:40 Potassium 3.3 mmol/L (3.5-5.1) L 06/04/20 19:40 Chloride 103 mmol/L (98-107) 09/03/19 19:40 Carbon Dioxide 30 mmol/L (23-31) 09/03/19 19:40 BUN 6 mg/dL (9.8-20.1) L 09/03/19 19:40 Creatinine 0.84 mg/dL (0.6-1.1) 09/03/19 19:40 Glucose 74 mg/dL (83-110) L 09/03/19 19:40 Calcium 8.8 mg/dL (7.8-10.44) 09/03/19 19:40 Total Bilirubin 0.3 mg/dL (0.2-1.2) 09/03/19 19:40 AST 25 U/L (5-34) 09/03/19 19:40 ALT 16 U/L (8-55) 09/03/19 19:40 Alkaline Phosphatase 86 U/L (40-110) 09/03/19 19:40 Creatine Kinase 16 U/L (29-168) L 09/03/19 19:40 Serum Total Protein 6.3 g/dL (6.0-8.3) 09/03/19 19:40 Albumin 3.2 g/dL (3.4-4.8) L 09/03/19 19:40 Urine Ketones Negative mg/dL (Negative) 09/03/19 20:05 Urine Blood Negative (Negative) 09/03/19 20:05 Urine Nitrite Negative (Negative) 09/03/19 20:05 Ur Leukocyte Esterase 75 Taryn/uL (Negative) A 09/03/19 20:05 Urine RBC 0-3 HPF (0-3) 09/03/19 20:05 Urine WBC 4-6 HPF (0-3) A 09/03/19 20:05 Ur Squamous Epith Cells 0-3 HPF (0-3) 09/03/19 20:05 Urine Bacteria None Seen HPF (None Seen) 09/03/19 20:05 - EKG Interpretation EKG: NSR - Radiology Interpretation CT scan - head Status: image reviewed by me, report reviewed by me Additional comment: Showed no acute pathology. Showed old right inferior cerebellar infarcts. Chest x-ray Status: image reviewed by me, report reviewed by me Additional comment: No acute intrathoracic abnormality FMR H&P: A/P - Problem List (1) Stroke Current Visit: Yes Status: Acute Code(s): I63.9 - CEREBRAL INFARCTION, UNSPECIFIED (2) MDD (major depressive disorder) Current Visit: Yes Status: Acute Code(s): F32.9 - MAJOR DEPRESSIVE DISORDER , SINGLE EPISODE, UNSPECIFIED (3) CKD (chronic kidney disease) Current Visit: Yes Status: Acute Code(s): N18.9 - CHRONIC KIDNEY DISEASE, UNSPECIFIED (4) Alcohol abuse Current Visit: No Status: Acute Code(s): F10.10 - ALCOHOL ABUSE, UNCOMPLICATED (5) GERD (gastroesophageal reflux disease) Current Visit: No Status: Acute Code(s): K21.9 - GASTRO-ESOPHAGEAL REFLUX DISEASE WITHOUT ESOPHAGITIS (6) HLD (hyperlipidemia) Current Visit: No Status: Acute Code(s): E78.5 - HYPERLIPIDEMIA, UNSPECIFIED (7) CHF (congestive heart failure) Current Visit: No Status: Chronic Code(s): I50.9 - HEART FAILURE, UNSPECIFIED (8) Tobacco abuse Current Visit: No Status: Acute Code(s): Z72.0 - TOBACCO USE (9) Macrocytic anemia Current Visit: Yes Status: Acute Code(s): D53.9 - NUTRITIONAL ANEMIA, UNSPECIFIED - Plan Pt is a 74 yo F with pmh of alcohol abuse, MDD, HTN, HFpEF, GERD, CKD3, Tobacco abuse who present for increased weakness and dizziness. 1. Stroke r/o CT: Old R inferior cerebellar infarct * MRI, ECHO, & CTA ordered * TSH, Mag, Phos, FLP * PT/OT/Speech consulted * ASA & Atorvastatin given * Neuro consulted- await recs 2. Hx of HF Contine home: KCl * Will get ECHO to better assess * 3. Macrocytic Anemia Pt reports having numbness and tingling in hands and feet with weakness in legs. -B12, folate and iron studies ordered -could have B12 anemia leading to symptoms. 4. LE weakness -Pt long time smoker. Possible component of PVD leading to LE weakness -ERIKA ordered -Started on statin 5. MDD Continue home med: Mirtazapine 6. GERD Tums prn 7. Hx of CKD3 Cre: 0.84 * Will monitor with CMP 8. Hx of Alcohol Abuse Recommended Cessation * MCV 107 * Ordered B12 & Folate 9. Tobacco abuse Recommend Cessation * Nicotine patch ordered Code Status: Full Diet: HHLSo IVF: SL DVT PPx: Lovenox GI PPx: Tums PCP: ZEYAD- Dr. Michael Gill Dispo: Admit stroke inpt for stroke r/o. LOS > 48H. FMR H&P: Upper Level - Pertinent history I went and evaluated pt. I updated HPI and ROS above with symptoms pt reported. See above for details. - Pertinent findings Pt had 4/5 weakness in LE. No decreased sensation noted. pt had some instability on heel to yañez test. No edema note in LE. 5/5 strength in UE bilaterally. No decreased sensation noted. No change in temp on extremities. Warm to touch Cardio: RRR, no murmurs or gallops Resp: CTA-B, no wheezes or crackles - Plan Date/Time: 09/03/19 9182 I, Gary Yeboah, PGY-3, have evaluated this patient and agree with findings/ plan as outlined by advisory intern resident. Pertinent changes/additions are listed here. I have reviewed the above plan. I made edits above as needed. See above for details. Will admit pt for stroke r/o. Possibly concern for B12 deficieny causing some of the weakness and neuro changes with macrocytic anemia. Pt also long time smoker. May have component of PVD. Ankle-Brachial index ordered for further evaluation. PT/OT/Speech consulted. Neuro consulted. Await recs. Addendum - Attending - Attending Attestation Date/Time: 09/04/19 0189 I personally evaluated the patient and discussed the management with Dr. Michael Gill on 09/03/19 I agree with the History, Examination, Assessment and Plan documented above with any addition or exceptions noted below -74 yo F with h/o alcohol abuse, MDD , HTN, HFpEF, GERD, CKD3, Tobacco abuse who present for increased weakness and dizziness. The patient was recently at [facility] for rehab. She was discharge on Saturday and followed up in clinic earlier this week. She says she has had dizziness and weakness for a long time, but she almost had several falls , so she called home health and they recommended her coming in and being seen. Pt reports having some numbness and tingling pain in her feet and hands bilaterally. Denies any loss of bowel or bladder function. Pt denies any recent trauma or injury. Pt denies ever being told she has PVD. Pt was not aware of stroke in past. Pt denies any fever or chills. Pt denies any chest pain or SOB. Pt reported weakness in LE bilaterally. PM/PSH/Meds/SH reviewed and agree with resident's documentation. Afebrile VSS. Exam repeated by me and agree with resident's findings. Labs: H/H=11.9/38.5, Acw=748, Na= 141, K=3.8, BUN/Cr=6/0.84 , Gluc=74, CT brain- old infarct in right cerebellum. A/P: 1) Weakness and paresthesias- Place in obs. Will check MRI and echo. Rehab scrren though patient recently discharged from rehab. May need [employer] placement. 2) Macrocytic anemia with h/o alcohol use- will check B12 and folate; may explain paresthesias, 3) HTN- continue home meds.
[2019-09-04 00:37] LABS: Iron 71 ug/dL (50-170); Iron Binding Capacity, Total 191 mcg/dL (265-497)
[2019-09-04 01:05] VITALS: BMI 28.3
[2019-09-04 01:11] LABS: Ferritin 378.73 ng/mL (10-291)
[2019-09-04] MEDS: Nicotine 21 MG PATCH TD SCH (01:17)
[2019-09-04] MEDS: Ketorolac Tromethamine 30 MG/ML VIAL IVP PRN ×2 (03:17→17:47)
[2019-09-04 05:09] LABS: #Eosinphils 0.2 thou/uL (0.0-0.7); #Lymphocytes 1.8 thou/uL (1.20-3.40); #Monocytes 0.5 thou/uL (0.11-0.59); #Neutrophils 3.6 thou/uL (1.40-6.50); %Basophils 0.6 % (0.0-1.0); %Eosinophils 3.1 % (0.0-10.0); %Lymphocytes 29.1 % (21.0-51.0); %Monocytes 7.6 % (0.0-10.0); %Neutrophils 59.6 % (42.0-75.0); Hemoglobin 10.9 g/dL (12.0-16.0); Mean Corpuscular HGB CONC 32.4 g/dL (32.0-36.0); Mean Corpuscular Hemoglobin 33.8 pg (27.0-31.0); Mean Platelet Volume 7.6 fL (7.4-10.4); Platelet Count 346 thou/uL (130-400); Red Blood Cell (RBC) Count 3.22 mill/uL (4.20-5.40); White Blood Cell (WBC) Count 6.1 thou/uL (4.8-10.8)
[2019-09-04 05:35] LABS: ALT (SGPT) 13 U/L (8-55); AST (SGOT) 19 U/L (5-34); Albumin 2.8 g/dL (3.4-4.8); Alkaline Phosphatase 81 U/L (40-110); Anion Gap 11 mmol/L (10-20); BUN (Urea Nitrogen) 8 mg/dL (9.8-20.1); Bilirubin, Total 0.4 mg/dL (0.2-1.2); Calc. Creatinine Clearance 69 mL/min (70-130); Calcium 8.3 mg/dL (7.8-10.44); Carbon Dioxide 27 mmol/L (23-31); Chloride 104 mmol/L (98-107); Estimated GFR-MDRD 62; Globulin 2.8 g/dL (2.4-3.5); Glucose 120 mg/dL (83-110); Potassium 3.5 mmol/L (3.5-5.1); Protein, Total 5.6 g/dL (6.0-8.3); Sodium 138 mmol/L (136-145)
[2019-09-04] MEDS ORDERED: Potassium Chloride 20 MEQ TAB PO SCH (05:45)
[2019-09-04] MEDS ORDERED: Sodium Chloride 0.9% 500 ML IV SCH (08:15)
[2019-09-04] MEDS ORDERED: Lorazepam 2 MG/ML VIAL SLOW IVP SCH ×2 (08:15)
[2019-09-04] MEDS: Aspirin 81 mg Enteric Coated Tablet PO SCH (08:44)
[2019-09-04] MEDS: Potassium Chloride 10 MEQ TAB PO SCH (08:51)
--- NOTE | 2019-09-04 09:07 | PDOC.FM ---
- Subjective Subjective: Patient doing okay this morning. Denies headache or blurry vision. Still complains of tingling, "pins and needles" sensation in her bilateral hands and feet. States she usually takes Gabapentin at home for these symptoms which provides relief but has been out of her supply for a while. Does also report she used to take Lasix, but this is inconsistent with her pharmacy records. Patient has somewhat decreased sensation on left compared to right but overall sensation is intact on both sides. Patient expresses that she does not feel safe going home alone, desires assisted placement vs assisted living. Currently receiving at home PT twice a week but still feels very weak with exercises. Reports her LE usually is upon standing and accompanied by lightheadedness. - Objective MAR Reviewed: Yes Vital Signs & Weight: Vital Signs (12 hours) Temp Pulse Resp BP BP BP Pulse Ox 09/04/19 03:20 98.3 F 101 H 20 124/71 92/67 103/54 L 95 09/04/19 00:22 98.6 F 97 18 108/60 94 L Weight Weight 77.247 kg I&O: 09/03/19 09/04/19 09/05/19 06:59 06:59 06:59 Intake Total 350 Balance 350 Result Diagrams: 09/04/19 04:52 09/04/19 04:52 Phys Exam - Physical Examination Constitutional: NAD HEENT: moist MMs, sclera anicteric Neck: supple, full ROM Respiratory: no wheezing, clear to auscultation bilateral Cardiovascular: RRR, no significant murmur Gastrointestinal: soft, positive bowel sounds Musculoskeletal: no edema, pulses present gross motor strength 5/5 in all extremities Neurological: non-focal, moves all 4 limbs grossly normal sensation, slightly decreased on left compared to right Psychiatric: normal affect, A&O x 3 Skin: no rash, normal turgor Dx/Plan (1) CVA, old, alterations of sensations Code(s): I69.398 - OTHER SEQUELAE OF CEREBRAL INFARCTION; R20.9 - UNSPECIFIED DISTURBANCES OF SKIN SENSATION Status: Acute (2) Paresthesia and pain of both upper extremities Code(s): R20.2 - PARESTHESIA OF SKIN; M79.601 - PAIN IN RIGHT ARM; M79.602 - PAIN IN LEFT ARM Status: Acute (3) Paresthesia of both feet Code(s): R20.2 - PARESTHESIA OF SKIN Status: Acute (4) History of alcoholism Code(s): F10.21 - ALCOHOL DEPENDENCE, IN REMISSION Status: Acute (5) Macrocytic anemia Code(s): D53.9 - NUTRITIONAL ANEMIA, UNSPECIFIED Status: Acute (6) 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 #CVA r/o -CT head: Old R inferior cerebellar infarct -MRI, ECHO, & CTA ordered -TSH 0.8 -Mag, Phos, FLP pending -PT/OT/Speech consulted -ASA & Atorvastatin given in ED -Neuro consulted-Dr. Magana, appreciate recs #Hx of CHF -patient states she takes Lasix but unsure of dosing, await official med rec by pharmacy -patient currently euvolemic on exam -Contine home: KCl -ECHO ordered #Macrocytic Anemia -Pt reports having numbness and tingling in hands and feet; having weakness in legs when she stands up -B12, folate and iron studies wnl -will check Thiamine given hx of alcohol abuse #Orthostatic Hypotension -orthostatic vitals positive: sitting 124/71; standing 92/67 -given 500 mL NS bolus -patient relays that she does not have much fluid intake at home #LE weakness -Pt long time smoker. Possible component of PVD leading to LE weakness. Also possibly deconditioning as patient states she does not move around house much and diet is poor. -ERIKA ordered -Started on statin #MDD -Continue home med: Mirtazapine #GERD -Tums prn #Hx of CKD3 -Cr: 0.84 -Will monitor with CMP #Hx of Alcohol Abuse -states last drink was 2 shots of whiskey with sprite yesterday, denies daily drinks, denies having >6 drinks in one day during past 2 weeks -Recommended Cessation -MCV 107 * B12 & Folate wnl * Thiamine pending #Tobacco abuse -Recommend Cessation -Nicotine patch ordered Social: Case Management consult placed. Patient desires to be placed in assisted/SNF upon discharge from hospital. PT/OT consults ordered. Code Status: Full Diet: HHLSo IVF: SL DVT PPx: Lovenox GI PPx: Tums PCP: JONN Gill Dispo: Stable, admitted to inpatient on stroke unit for CVA r/o. Further imaging and lab studies pending. Anticipate LOS > 48H. Addendum - Attending - Attending Attestation Date/Time: 09/04/19 8693 I personally evaluated the patient and discussed the management with Dr. [] I agree with the History, Examination, Assessment and Plan documented above with any addition or exceptions noted below. She appears to have some degree of orthostasis. Fluid bolus given. Imagine for TIA eval ordered. CM to work on placement in SNF vs [place] vs NH. Will likely be here over the weekend.
[2019-09-04] MEDS: Gabapentin 300 MG CAP PO SCH ×2 (09:18→20:56)
[2019-09-04] MEDS ORDERED: Iopamidol 370 76% 100 ML VIAL ONE (10:30)
--- NOTE | 2019-09-04 12:27 | MRI ---
MRI BRAIN WITHOUT CONTRAST: Date: 09/04/2019 HISTORY: Altered mental status. FINDINGS: Correlation is made with the CT scan from previous night. No restricted diffusion is seen. Multiple foci of T2 prolongation are present in the periventricular white matter consistent with chronic small vessel ischemic disease. No evidence of acute infarct, hemorrhage, midline shift, or abnormal extra-axial fluid collections ar e seen. The ventricular size is appropriate and the basilar cisterns are patent. The visualized paran sofía sinuses are well-aerated. There is a tiny amount of fluid in the left mastoid air cells. IMPRESSION: No evidence of acute intracranial process. POS: [facility]
--- NOTE | 2019-09-04 13:05 | CON ---
NEUROLOGY CONSULTATION DATE OF CONSULTATION: 09/04/2019 REASON FOR CONSULTATION: Increased weakness. HISTORY OF PRESENT ILLNESS: Ms. Valerie Garza is a 74-year-old female with medical history significant for major depression, hypertension, GERD, chronic kidney disease, tobacco abuse, alcohol abuse, presented with increased worsening dizziness and weakness. The patient was recently at the rehab facility [facility]. She was discharged on Saturday and followed up in the clinic this week. According to her, she has increased dizziness and weakness and sustained several falls, so she called home health, who recommend to come to the emergency room for further evaluation. She does have tingling and paresthesias in glove and stocking distribution secondary to neuropathy. The patient does report increased weakness in the lower extremities, but denies focal weakness, nausea, vomiting, headache, vertigo, chest pain, or abdominal pain associated with the episode. - Allergies/Adverse Reactions Allergies Allergy/AdvReac Type Severity Reaction Status Date / Time codeine AdvReac Intermediate Verified 09/04/19 00:59 - Home Medications Medication Instructions Recorded Confirmed Type Mirtazapine [Remeron Soltab] 30 mg PO HS 09/04/19 09/04/19 History Montelukast Sodium [Singulair] 10 mg PO HS 09/04/19 09/04/19 History Potassium Chloride [Klor-Con 10] 10 meq PO DAILY 09/04/19 09/04/19 History PAST MEDICAL HISTORY: Alcohol abuse, hypertension, and tobacco abuse. PAST SURGICAL HISTORY: None. FAMILY HISTORY: Mother at the age of 53, breast cancer. Father of stroke. SOCIAL HISTORY: Has been smoking a pack a day since age 14, Drinks alcohol occasionally. Denies illegal drug use. - Review of Systems General: denies: fever/chills, weight/appetite/sleep changes Eyes: denies: vision changes ENT: denies: nasal congestion Respiratory: denies: cough, congestion, shortness of breath Cardiovascular: denies: chest pain, edema Gastrointestinal: reports: diarrhea. denies: nausea, vomiting, constipation, abdominal pain Genitourinary: denies: dysuria Skin: denies: rashes, lesions, itching Musculoskeletal: denies: pain, tenderness, stiffness, swelling Neurological: reports: numbness (Pt reported some numbness and tingling in LE upon my evaluation), weakness (Pt reported weakness in LE bilaterally.), other ( dizziness). denies: syncope, seizure Vital Signs & Weight: Vital Signs (12 hours) Temp Pulse Resp BP BP BP Pulse Ox 09/04/19 03:20 98.3 F 101 H 20 124/71 92/67 103/54 L 95 09/04/19 00:22 98.6 F 97 18 108/60 94 L Weight Weight 77.247 kg I&O: 09/03/19 09/04/19 09/05/19 06:59 06:59 06:59 Intake Total 350 Balance 350 - Physical Exam Constitutional: NAD, awake, alert and oriented HEENT: normocephalic and atraumatic, PERRLA, EOMI, conjunctiva clear, no scleral icterus, MMM Neck: supple, no LAD Heart: RRR, normal S1/S2, no murmurs/rubs/gallops -Heart: Decreased dorsalis pedis pulse Lungs: CTAB, no respiratory distress, good air movement Abdomen: soft, non-tender, bowel sounds present Musculoskeletal: normal structure, normal tone -Neurological: Mental status; the patient is alert and oriented to person, place, and time. Speech is clear. Cranial nerves 2 through 12 intact. Motor; muscle tone and bulk are normal. Strength 4/5 bilaterally. Reflexes 1+ bilaterally. Cerebellar intact. Sensory, decreased sensation to pinprick, light touch in a glove and stocking distribution. Gait deferred due to the patient's safety reasons. Skin: no rash/lesions Heme/Lymphatic: no unusual bruising or bleeding, no purpura, no petechia 09/04/19 04:52 Lab results: WBC 5.8 thou/uL (4.8-10.8) 09/03/19 19:40 Hgb 11.9 g/dL (12.0-16.0) L 09/03/19 19:40 Hct 38.5 % (36.0-47.0) 09/03/19 19:40 MCV 107.0 fL (78.0-98.0) H 09/03/19 19:40 Plt Count 385 thou/uL (130-400) 09/03/19 19:40 Neutrophils % 61.3 % (42.0-75.0) 09/03/19 19:40 Sodium 141 mmol/L (136-145) 09/03/19 19:40 Potassium 3.3 mmol/L (3.5-5.1) L 09/03/19 19:40 Chloride 103 mmol/L (98-107) 09/03/19 19:40 Carbon Dioxide 30 mmol/L (23-31) 09/03/19 19:40 BUN 6 mg/dL (9.8-20.1) L 09/03/19 19:40 Creatinine 0.84 mg/dL (0.6-1.1) 09/03/19 19:40 Glucose 74 mg/dL (83-110) L 09/03/19 19:40 Calcium 8.8 mg/dL (7.8-10.44) 09/03/19 19:40 Total Bilirubin 0.3 mg/dL (0.2-1.2) 09/03/19 19:40 AST 25 U/L (5-34) 09/03/19 19:40 ALT 16 U/L (8-55) 09/03/19 19:40 Alkaline Phosphatase 86 U/L (40-110) 09/03/19 19:40 Creatine Kinase 16 U/L (29-168) L 09/03/19 19:40 Serum Total Protein 6.3 g/dL (6.0-8.3) 09/03/19 19:40 Albumin 3.2 g/dL (3.4-4.8) L 09/03/19 19:40 Urine Ketones Negative mg/dL (Negative) 09/03/19 20:05 Urine Blood Negative (Negative) 09/03/19 20:05 Urine Nitrite Negative (Negative) 09/03/19 20:05 Ur Leukocyte Esterase 75 Taryn/uL (Negative) A 09/03/19 20:05 Urine RBC 0-3 HPF (0-3) 09/03/19 20:05 Urine WBC 4-6 HPF (0-3) A 09/03/19 20:05 Ur Squamous Epith Cells 0-3 HPF (0-3) 09/03/19 20:05 Urine Bacteria None Seen HPF (None Seen) 09/03/19 20:05 - EKG Interpretation EKG: NSR - Radiology Interpretation CT scan - head Status: image reviewed by me, report reviewed by me Additional comment: Showed no acute pathology. Showed old right inferior cerebellar infarcts. Chest x-ray Status: image reviewed by me, report reviewed by me Additional comment: No acute intrathoracic abnormality - Problem List (1) Stroke Current Visit: Yes Status: Acute Code(s): I63.9 - CEREBRAL INFARCTION, UNSPECIFIED (2) MDD (major depressive disorder) Current Visit: Yes Status: Acute Code(s): F32.9 - MAJOR DEPRESSIVE DISORDER , SINGLE EPISODE, UNSPECIFIED (3) CKD (chronic kidney disease) Current Visit: Yes Status: Acute Code(s): N18.9 - CHRONIC KIDNEY DISEASE, UNSPECIFIED (4) Alcohol abuse Current Visit: No Status: Acute Code(s): F10.10 - ALCOHOL ABUSE, UNCOMPLICATED (5) GERD (gastroesophageal reflux disease) Current Visit: No Status: Acute Code(s): K21.9 - GASTRO-ESOPHAGEAL REFLUX DISEASE WITHOUT ESOPHAGITIS (6) HLD (hyperlipidemia) Current Visit: No Status: Acute Code(s): E78.5 - HYPERLIPIDEMIA, UNSPECIFIED (7) CHF (congestive heart failure) Current Visit: No Status: Chronic Code(s): I50.9 - HEART FAILURE, UNSPECIFIED (8) Tobacco abuse Current Visit: No Status: Acute Code(s): Z72.0 - TOBACCO USE (9) Macrocytic anemia Current Visit: Yes Status: Acute Code(s): D53.9 - NUTRITIONAL ANEMIA, UNSPECIFIED DATA REVIEWED: I reviewed the labs, which were significant for anemia and hyperglycemia. Head CT reviewed, which was negative for acute intracranial pathology. Chest x-ray did not reveal any infiltrates. ASSESSMENT AND PLAN: Ms. Valerie Garza is consulted for worsening weakness and status post falls. Consider recommend MRI of the brain to rule out acute intracranial pathology. Recommend echo to rule out cardioembolic source. CT angiogram of the head and neck to rule out significant stenosis. Start aspirin and a high- intensity statin for secondary stroke prevention. Check TSH, fasting lipid profile, hemoglobin A1c. Telemetry. Neuro checks every 4 hours. Permissive blood pressure control. At this point, strict control of the blood glucose. Continue medical management per Primary Team. We will continue to follow. Thank you for the consult. Job ID: [id number] [id number]
[2019-09-04] MEDS ORDERED: Atorvastatin Calcium 40 MG TAB PO SCH (21:00)
[2019-09-04] MEDS ORDERED: Montelukast Sodium 10 mg Tablet PO SCH (21:00)
[2019-09-05] MEDS: Nicotine 21 MG PATCH TD SCH (00:52)
--- NOTE | 2019-09-05 05:46 | PDOC.FM ---
- Subjective Subjective: Patient doing well this morning. Denies feelings of numbness/tingling at this time. Reports that it is intermittent. Discussed plans for [facility] and possibility of patient requiring long-term placement. Patient agreeable with plan of care. - Objective Vital Signs & Weight: Vital Signs (12 hours) Temp Pulse Resp BP Pulse Ox 09/05/19 03:55 98.3 F 77 16 96/57 L 99 09/04/19 23:56 97.8 F 68 16 120/55 L 98 09/04/19 20:00 98.1 F 85 18 96/53 L 94 L Weight Weight 77.247 kg I&O: 09/03/19 09/04/19 09/05/19 06:59 06:59 06:59 Intake Total 350 Output Total 250 Balance 350 -250 Result Diagrams: 09/05/19 05:34 09/05/19 05:34 Phys Exam - Physical Examination Constitutional: NAD HEENT: moist MMs, sclera anicteric Neck: supple, full ROM Respiratory: no wheezing, clear to auscultation bilateral Cardiovascular: RRR, no significant murmur Gastrointestinal: soft, no distention Musculoskeletal: no edema, pulses present Neurological: normal sensation, moves all 4 limbs Psychiatric: normal affect, A&O x 3 Skin: no rash, normal turgor Dx/Plan (1) CKD (chronic kidney disease) Code(s): N18.9 - CHRONIC KIDNEY DISEASE, UNSPECIFIED Status: Acute (2) CVA, old, alterations of sensations Code(s): I69.398 - OTHER SEQUELAE OF CEREBRAL INFARCTION; R20.9 - UNSPECIFIED DISTURBANCES OF SKIN SENSATION Status: Acute (3) History of alcoholism Code(s): F10.21 - ALCOHOL DEPENDENCE, IN REMISSION Status: Acute (4) MDD (major depressive disorder) Code(s): F32.9 - MAJOR DEPRESSIVE DISORDER, SINGLE EPISODE, UNSPECIFIED Status : Acute (5) Macrocytic anemia Code(s): D53.9 - NUTRITIONAL ANEMIA, UNSPECIFIED Status: Acute (6) Paresthesia of both feet Code(s): R20.2 - PARESTHESIA OF SKIN Status: Acute (7) HLD (hyperlipidemia) Code(s): E78.5 - HYPERLIPIDEMIA, UNSPECIFIED Status: Acute (8) HTN (hypertension) Code(s): I10 - ESSENTIAL (PRIMARY) HYPERTENSION Status: Acute (9) CHF (congestive heart failure) Code(s): I50.9 - HEART FAILURE, UNSPECIFIED Status: Chronic - Plan Plan: Pt is a 74 yo F with pmh of alcohol abuse, MDD, HTN, HFpEF, GERD, CKD3, Tobacco abuse who present for increased weakness and dizziness. #CVA r/o -CT head: Old R inferior cerebellar infarct -CTA head: neg for acute changes, <50% stenosis R PICA -MRI pending -Echo pending -TSH 0.8 -Mag, Phos wnl -FLP pending -PT/OT/Speech consulted -ASA & Atorvastatin given in ED -Neuro consulted-Dr. Magana, appreciate recs #Deconditioning #LE Weakness -patient has reported increased lower extremity weakness over the last several weeks -recently requested a wheelchair and hospital bed while in clinic due to patient 's inability to ambulate -patient signed choice letter for [facility], CM following -Pt long time smoker. Possible component of PVD leading to LE weakness. Also possibly deconditioning as patient states she does not move around house much and diet is poor. -ERIKA ordered -Started on statin #Hx of HFpEF -patient states she takes Lasix but unsure of dosing, await official med rec by pharmacy -patient currently euvolemic on exam -Contine home: KCl -ECHO pending #Macrocytic Anemia -Pt reports having numbness and tingling in hands and feet; having weakness in legs when she stands up -B12, folate and iron studies wnl -thiamine pending, given hx of alcohol abuse #Orthostatic Hypotension -orthostatic vitals positive: sitting 124/71; standing 92/67 -given 500 mL NS bolus -patient relays that she does not have much fluid intake at home #MDD -Continue home med: Mirtazapine #GERD -Tums prn #Hx of CKD3 -Cr: 0.84 -Will monitor with CMP #Hx of Alcohol Abuse -denies having >6 drinks in one day during past 2 weeks -Recommended Cessation -MCV 107 * B12 & Folate wnl * Thiamine pending #Tobacco abuse -Recommend Cessation -Nicotine patch ordered #Concern for parasites -daughter reports seeing worms in patient's bed at rehab -stool studies pending Social: Case Management consult placed. Choice letter for [facility] placed 09/03. PT/OT consults ordered. Code Status: Full Diet: HHLSo IVF: SL DVT PPx: Lovenox GI PPx: Tums PCP: JONN Gill Dispo: Stable, admitted to inpatient on stroke unit for CVA r/o. Further imaging and lab studies pending. Neuro consulted, appreciate recs. Choice letter signed for [facility]. Anticipate LOS > 48H. Addendum - Attending - Attending Attestation Date/Time: 09/05/19 [id number] I personally evaluated the patient and discussed the management with Dr. Moody. I agree with the History, Examination, Assessment and Plan documented above with any addition or exceptions noted below. Swingbed pending at [facility]. Can d/c there once approved and arranged rat exterminator placement from there. Awaiting additional neuro recs.
[2019-09-05 06:15] LABS: ALT (SGPT) 12 U/L (8-55); AST (SGOT) 26 U/L (5-34); Alkaline Phosphatase 88 U/L (40-110); Anion Gap 14 mmol/L (10-20); BUN (Urea Nitrogen) 9 mg/dL (9.8-20.1); Bilirubin, Total 0.3 mg/dL (0.2-1.2); Calc. Creatinine Clearance 79 mL/min (70-130); Calcium 8.2 mg/dL (7.8-10.44); Carbon Dioxide 26 mmol/L (23-31); Cardiac Risk 5.2 (Less than 4.5); Chloride 104 mmol/L (98-107); Cholesterol 197 mg/dl (< 200 Desired); Estimated GFR-MDRD 70; Globulin 3.2 g/dL (2.4-3.5); Glucose 86 mg/dL (83-110); HDL Cholesterol 38 mg/dL (>60 Neg Risk); LDL Cholesterol, Calculated 125 mg/dL; Potassium 4.4 mmol/L (3.5-5.1); Protein, Total 6.2 g/dL (6.0-8.3); Sodium 140 mmol/L (136-145); Triglycerides 169 mg/dL (Less than 150)
[2019-09-05 06:28] LABS: Hemoglobin 12.9 g/dL (12.0-16.0); Mean Corpuscular HGB CONC 31.9 g/dL (32.0-36.0); Mean Corpuscular Hemoglobin 34.1 pg (27.0-31.0); Mean Platelet Volume 8.2 fL (7.4-10.4); Platelet Count 258 thou/uL (130-400); Red Blood Cell (RBC) Count 3.77 mill/uL (4.20-5.40); White Blood Cell (WBC) Count 4.8 thou/uL (4.8-10.8)
[2019-09-05 06:57] LABS: Band 3 % (5-11); Eosinophils 3 % (0-10); Lymphocytes 29 % (21-51); MDiff Complete? YES; Macrocytosis SLIGHT = 6-15 cells (100X) (0-5/hpf); Monocytes 9 % (0-10); Neutrophil 56 % (42-75)
[2019-09-05] MEDS: Ketorolac Tromethamine 30 MG/ML VIAL IVP PRN ×2 (09:41→18:06)
[2019-09-05] MEDS: Aspirin 81 mg Enteric Coated Tablet PO SCH (09:42)
[2019-09-05] MEDS: Potassium Chloride 10 MEQ TAB PO SCH (09:42)
[2019-09-05] MEDS: Gabapentin 300 MG CAP PO SCH (09:43)
[2019-09-05] MEDS ORDERED: Polyethylene Glycol 3350 17 GM Packet PO SCH (10:00)
--- NOTE | 2019-09-05 12:08 | EKG ---
Test Reason : Blood Pressure : / mmHG Vent. Rate : 090 BPM Atrial Rate : 090 BPM P-R Int : 202 ms QRS Dur : 082 ms QT Int : 394 ms P-R-T Axes : 047 -11 055 degrees QTc Int : 481 ms Normal sinus rhythm Inferior infarct , age undetermined Abnormal ECG Confirmed by RIZWANA MIMS DO ([id number]), primer expeditor and drier RUTH TEIXEIRA ([id number]) on 09/05/2019 12:08:12 PM Referred By: Confirmed By:RIZWANA MIMS DO
--- NOTE | 2019-09-05 12:19 | PDOC.HOSPP ---
- Subjective Encounter Date: 09/05/19 Subjective: NEUROLOGY PROGRESS NOTE No acute events overnight. - Objective Vital Signs & Weight: Vital Signs (12 hours) Temp Pulse Pulse Pulse Pulse Resp BP 09/05/19 11:04 97.3 F L 80 16 09/05/19 09:00 82 18 09/05/19 08:50 82 81 90 100/60 09/05/19 03:55 98.3 F 77 16 BP BP BP BP BP BP Pulse Ox 09/05/19 11:04 100/61 97 09/05/19 09:00 113/68 101/66 100/61 09/05/19 08:50 113/68 101/66 09/05/19 03:55 96/57 L 99 Weight Weight 175 lb I&O: 09/04/19 09/05/19 09/06/19 06:59 06:59 06:59 Intake Total 350 350 240 Output Total 250 300 Balance 350 100 -60 Result Diagrams: 09/05/19 05:34 09/05/19 05:34 Radiology Reviewed by me: Yes EKG Reviewed by me: Yes Hospitalist ROS - Review of Systems Constitutional: denies: fever, chills, sweats, weakness, malaise, other Eyes: denies: pain, vision change, conjunctivae inflammation, eyelid inflammation, redness, other ENT: denies: ear pain, ear discharge, nose pain, nose discharge, nose congestion , mouth pain, mouth swelling, throat pain, throat swelling, other Respiratory: denies: cough, dry, shortness of breath, hemoptysis, SOB with excertion, pleuritic pain, sputum, wheezing, other Cardiovascular: denies: chest pain, palpitations, orthopnea, paroxysmal noc. dyspnea, edema, light headedness, other Gastrointestinal: denies: nausea, vomiting, abdominal pain, diarrhea, constipation, melena, hematochezia, other Genitourinary: denies: dysuria, frequency, incontinence, hematuria, retention, other Musculoskeletal: denies: neck pain, shoulder pain, arm pain, back pain, hand pain, leg pain, foot pain, other Skin: denies: rash, lesions, esequiel, bruising, other Neurological: reports: weakness. denies: numbness, incoordination, change in speech, confusion, seizures, other - Medication Medications: Active Medications Generic Name Dose Route Start Last Admin Trade Name Freq PRN Reason Stop Dose Admin Aspirin 81 mg 09/04/19 09:00 09/05/19 09:42 Ecotrin PO 81 mg DAILY OBDULIA Administration Atorvastatin Calcium 40 mg 09/04/19 21:00 09/04/19 20:56 Lipitor PO 40 mg HS OBDULIA Administration Gabapentin 300 mg 09/04/19 09:00 09/05/19 09:43 Neurontin PO 300 mg BID OBDULIA Administration Ketorolac Tromethamine 30 mg 09/04/19 03:04 09/05/19 09:41 Toradol IVP 09/08/19 03:05 30 mg Q6H PRN Administration Pain Montelukast Sodium 10 mg 09/04/19 21:00 09/04/19 20:56 Singulair PO 10 mg HS OBDULIA Administration Nicotine 21 mg 09/03/19 23:59 09/05/19 00:52 Nicoderm Patch TD 21 mg 2359 OBDULIA Administration Ondansetron HCl 4 mg 09/03/19 23:14 09/04/19 08:58 Zofran Odt PO 4 mg Q6H PRN Administration Nausea/Vomiting Potassium Chloride 10 meq 09/04/19 08:00 09/05/19 09:42 Klor-Con 10 PO 10 meq QAM-WM OBDULIA Administration Senna/Docusate Sodium 2 tab 09/03/19 23:14 09/04/19 20:56 Senokot S PO 2 tab BIDPRN PRN Administration Constipation - Exam General Appearance: awake alert Eye: PERRL ENT: normocephalic atraumatic, no oropharyngeal lesions, moist mucosa Neck: supple Heart: RRR Respiratory: CTAB Gastrointestinal: soft Extremities: no cyanosis Skin: normal turgor Neurological: no new deficit Psychiatric: normal affect, normal behavior, A&O x 3 Hosp A/P (1) Weakness Code(s): R53.1 - WEAKNESS Status: Acute (2) Psoriasis Code(s): L40.9 - PSORIASIS, UNSPECIFIED Status: Acute (3) Pyelonephritis, acute Code(s): N10 - ACUTE PYELONEPHRITIS Status: Acute (4) Pyuria Code(s): N39.0 - URINARY TRACT INFECTION, SITE NOT SPECIFIED Status: Acute (5) Tobacco abuse Code(s): Z72.0 - TOBACCO USE Status: Acute (6) CHF (congestive heart failure) Code(s): I50.9 - HEART FAILURE, UNSPECIFIED Status: Chronic - Plan PT/OT, out of bed/ambulate, DVT proph w/SCDs 74 year old presented with bilateral weakness. MRI brain reviewed which was negative for acute intracranial process. Continue home medications. PT/OT Continue medical management per primary team.
[2019-09-05 15:32] VITALS: BP 106/53; TEMP 97.7
[2019-09-06] MEDS ORDERED: Polyethylene Glycol 3350 17 GM Packet PO SCH (09:00)
--- NOTE | 2019-09-07 05:54 | DIS ---
DATE OF ADMISSION: 09/03/2019 DATE OF DISCHARGE: 09/05/2019 ADMITTING RESIDENT: Lui Gill MD. ADMITTING ATTENDING: Amy Main MD. DISCHARGE RESIDENT: Jane Moody MD. DISCHARGE ATTENDING: Aamir Yang MD. CONSULTS: Neurology (Dr. Magana), PT, OT, Speech, Stroke Team, Case Management. PROCEDURES: None. IMAGIN. 09/03/2019, brain CT: Chronic findings. No acute intracranial abnormality. 2. Chest x-ray, 09/03/2019: No acute intrathoracic abnormality. 3. Brain MRI, 09/04/2019: No evidence of acute intracranial process. 4. CT [place] angio with contrast, 09/04/2019: No acute intracranial abnormality. Chronic intracranial findings unchanged from study obtained 1 month ago as well as in 2017. Mild atherosclerosis, narrowing, but the degree of narrowing is less than 50% involving the proximal right internal carotid artery. Left internal carotid artery is patent. Right vertebral artery terminates in PICA. Left vertebral artery is patent. No focal stenosis or branch occlusion is seen involving the [place] or vertebrobasilar system. Dense vascular calcifications involving the carotid stenosis. Tiny air-fluid levels in sinus. 5. Echocardiogram: EF estimated at 55% to 60%. E/A flow reversal noted. Suggestive of diastolic dysfunction. Mild mitral regurgitation is present. Trace tricuspid regurgitation. PRIMARY DIAGNOSES: Deconditioning and lower extremity weakness. SECONDARY DIAGNOSES: History of preserved ejection fraction, heart failure, macrocytic anemia, orthostatic hypotension, major depressive disorder, gastroesophageal reflux disease, chronic kidney disease 3, alcohol abuse, tobacco abuse. DISCHARGE MEDICATIONS: 1. 81 mg aspirin p.o. daily. 2. 40 mg atorvastatin p.o. at bedtime. 3. 300 mg gabapentin p.o. b.i.d. 4. 30 mg mirtazapine p.o. at bedtime. 5. 10 mg montelukast p.o. at bedtime. 6. 10 mEq potassium chloride p.o. daily. Discontinued medications: 1. Tums p.r.n. 2. Nicotine patch. 3. Zofran p.r.n. 4. MiraLAX. 5. Senokot p.r.n. It should be noted that per patient's clinic chart, the patient had been on 40 mg furosemide, 20 mg prednisone, 25 mg metoprolol succinate ER, 5 mg lisinopril, 1 mg folic acid, 400 mg gabapentin daily. These medications were not restarted during the hospitalization as they were not confirmed with the patient's pharmacy. Restarting these medications should be considered pending patient status, particularly the lisinopril, furosemide, and the metoprolol succinate as her echo did demonstrate diastolic dysfunction. HISTORY OF PRESENT ILLNESS/HOSPITAL COURSE: The patient is a 74-year-old female , with a past medical history of alcohol abuse, major depressive disorder, hypertension, diastolic heart failure, GERD, CKD, tobacco abuse, who presented to the ED for increased weakness and dizziness. The patient was recently discharged from rehab and followed up in clinic earlier in the week. She reported that she has experienced dizziness and weakness for many weeks, but she reported almost fallen at home and Home Health recommended that she come in to be seen. She also reported having some numbness and tingling intermittently in her feet and hands bilaterally. She was admitted for a CVA workup as well as for her deconditioning and lower extremity weakness. Her imaging resulted negative for stroke, see above. Dr. Magana from Neurology was consulted, who recommended the patient start on an 81 mg aspirin and atorvastatin. The patient was also found to have orthostatic hypotension and was given a 500 mL normal saline bolus. Her echo was consistent with diastolic dysfunction, patient was euvolemic on exam. Pharmacy was never able to confirm whether the patient actually had recently received Lasix, metoprolol succinate, or lisinopril and so these medications were not restarted during the hospitalization, but should be considered at the swing bed and as an outpatient. The patient's daughter did have concerns for possible tapeworm found in the patient's bed at rehab, but her stool studies were negative for Giardia or Cryptosporidium. The ova and parasite screen was negative. Multiple conversations were performed and the patient decided that she would like to go to the [facility] to see if she could regain some of her strength there. It was also discussed with the patient that long-term care may also be a good option for her as she has a high amount of difficulty getting in and out of her wheelchair and performing activities of daily living. She reported that she would consider this pending her stay at the [facility]. DISPOSITION: Stable. DISCHARGE INSTRUCTIONS: 1. Location. [facility]. 2. Diet: Heart healthy. 3. Activity: Ambulate with assistance. 4. Follow up with the physicians at the [facility] and follow up with the primary care physician within 1 week of discharge from [facility]. Please see note about about prescriptions. Job ID: [id number] MTDD
--- NOTE | 2019-09-09 14:39 | CT ---
"PRELIMINARY REPORT" EXAM: Noncontrast CT head CT angiogram head and neck with IV contrast and 3-D reconstructions PROVIDED CLINICAL HISTORY: Dizziness and bilateral extremity weakness for past 2 weeks. History of prior infarction. COMPARISON: Noncontrast CT head on 09/03/2019 FINDINGS: Noncontrast CT head: Again noted are chronic small vessel ischemic changes and cerebral volume loss. Low-density focus rel ated to remote lacunar infarction is again seen in the right thalamus. This was also seen on study in 2017. No acute cortical infarction, hemorrhage, mass effect, or midline shift is seen. Tiny air-fl uid level is seen in the left sphenoid sinus. Calvarial structures have a normal appearance. CT angiogram head and neck: Vascular calcifications are seen at the aortic arch and at the origins of the great vessels. There is a normal arrangement of the great vessels at the aortic arch which are patent. The innominate artery and bilateral subclavian arteries are patent. Bilateral common carotid arteries are patent. Vascular calcifications are seen at the carotid artery bifurcations bilaterally. The left vertebral artery is patent. There is mild atherosclerotic irregularity involving the origin of the right internal carotid artery, but the right internal artery is otherwise patent. Degree of narrowing involving the origin and proximal right internal carotid artery is less than 50%. Dense vascular calcifications are seen in the carotid arteries at the caroti d siphons which does limit evaluation. The right vertebral artery is small in caliber and terminates in PICA. The left vertebral artery is d ominant and patent. The basilar artery is patent. type origin of the left posterior cerebral artery is seen, and th e left posterior cerebral artery is patent. The bilateral anterior cerebral and middle cerebral arteries are patent. No focal stenosis or branch occlusion is seen. No intracranial aneurysm is visualized within the limitations of the technique of this exam. Bilateral parotid and submandibular glands as well as thyroid gland demonstrate a normal CT appearanc e. Degenerative changes are seen in the cervical spine. IMPRESSION: 1. No acute intracranial abnormality is demonstrated. 2. Chronic intracranial findings unchanged from study obtained one day ago as well as study in 2017. 3. Mild atherosclerosis and narrowing, but the degree of narrowing is less than 50%, involving the pr oximal right internal carotid artery. Left internal carotid artery is patent 4. Right vertebral artery terminates in PICA. Left vertebral artery is patent. 5. No focal stenosis or branch occlusion is seen involving the [place] or vertebrobasilar sy stem. Dense vascular calcifications involving the carotid siphons. 6. Tiny air-fluid level left sphenoid sinus. Transcribed Date/Time: 09/09/2019 2:39 PM
== END 2019-09-05 20:02 | disposition swing bed (61) | DRG 312 ==
LOC: ERS 18:49 → 2SE 21:03
PROVIDERS: ADMIT Family Medicine; ATTEND Family Medicine
DX: I95.1 Orthostatic hypotension (principal); I13.0 Hypertensive heart and chronic kidney disease with heart failure and stage 1 through stage 4 chronic kidney disease, or unspecified chronic kidney disease; I50.42 Chronic combined systolic (congestive) and diastolic (congestive) heart failure; I69.398 Other sequelae of cerebral infarction; M62.81 Muscle weakness (generalized); K21.9 Gastro-esophageal reflux disease without esophagitis; F17.210 Nicotine dependence, cigarettes, uncomplicated; F32.9 Major depressive disorder, single episode, unspecified; E11.40 Type 2 diabetes mellitus with diabetic neuropathy, unspecified; M79.601 Pain in right arm; M79.602 Pain in left arm; F10.21 Alcohol dependence, in remission; D53.9 Nutritional anemia, unspecified; N18.3 Chronic kidney disease, stage 3 (moderate); L40.9 Psoriasis, unspecified; R20.0 Anesthesia of skin; R20.2 Paresthesia of skin; Z88.5 Allergy status to narcotic agent; Z79.899 Other long term (current) drug therapy
CPT/HCPCS: 36415; 51701; 70450; 70496; 70498; 70551; 71045; 80053; 80061; 81003; 81015; 82550; 82607; 82728; 82746; 83540; 83550; 83735; 84100; 84425; 84443; 84484; 85025; 87328; 87329; 93005; 93306; 93922; 96374; J1885; J2060; Q0162; Q9967

== ENCOUNTER 2020-05-15 04:04 | Inpatient (IN) | payer MEDICARE ==
[2020-05-15] MEDS ORDERED: Fentanyl 100 MCG/2 ML VIAL ONE ×5 (04:11→14:03)
[2020-05-15] MEDS ORDERED: Ondansetron PF 4 MG/2 ML Vial ONE ×3 (04:11→14:27)
[2020-05-15] MEDS ORDERED: Ketamine 50 MG/ML (10ML VIAL) ONE (04:22)
[2020-05-15] MEDS ORDERED: Dextrose 5% in Water 1,000 ML IV PRN (05:59)
[2020-05-15] MEDS ORDERED: Ondansetron PF 4 MG/2 ML Vial IVP PRN (05:59)
[2020-05-15] MEDS ORDERED: Dextrose 50% Abboject 50 ML SYRINGE SLOW IVP PRN (05:59)
[2020-05-15] MEDS ORDERED: Sodium Chloride 0.9% 1,000 ML IV SCH (06:00)
[2020-05-15] MEDS ORDERED: Ibuprofen 600 MG TAB PO PRN (06:06)
[2020-05-15] MEDS ORDERED: traMADol HCl 50 MG TAB PO PRN (06:06)
[2020-05-15] MEDS ORDERED: Acetaminophen 500 MG TAB PO SCH ×2 (06:15→12:00)
[2020-05-15] MEDS ORDERED: traMADol HCl 50 MG TAB PO SCH (06:15)
[2020-05-15 07:26] LABS: Anion Gap 12 mmol/L (10-20); BUN (Urea Nitrogen) 9 mg/dL (9.8-20.1); Calc. Creatinine Clearance 0 mL/min (70-130); Calcium 7.8 mg/dL (7.8-10.44); Carbon Dioxide 30 mmol/L (23-31); Chloride 97 mmol/L (98-107); Glucose 115 mg/dL (83-110); Magnesium 1.4 mg/dL (1.6-2.6); Potassium 3.2 mmol/L (3.5-5.1); Sodium 136 mmol/L (136-145)
--- NOTE | 2020-05-15 07:35 | HP ---
PCP: Dr. Gill. CONSULTS: Orthopedic Surgery, Dr. Sorenson. CHIEF COMPLAINT: Mechanical fall from bed, right thigh pain. HISTORY OF PRESENT ILLNESS: This is a 74-year-old female with a past medical history of diastolic dysfunction, neuropathy, gastroesophageal reflux disease, and hypertension, who was attempting to getting bed when she slipped out of the bed, landing on her right side. The patient lives at home alone and uses a walker to get around. The patient was initially seen at [facility] where she was evaluated and found to have a distal right femur fracture. The patient denies any chest pain, shortness of breath, or feeling lightheaded before or after falling. The patient denies any recent illness such as fever or chills. The patient does smoke and has a chronic cough, which she states has been nonproductive. The patient also reports having increased psoriasis and redness to her bilateral lower extremities for the last several months. The patient was treated with antibiotics cefepime 2 g in the ER for cellulitis, worse on the right lower extremity. The patient states that she has been out of her prednisone, which helps keep her psoriasis under control. Adult Protective Services was also called by staff at [facility] as it was reported by EMS that the patient appeared to not be able to care herself at home alone. The patient was covered in stool when EMS arrived. The patient denied any other injuries or hitting her head. ALLERGIES: Denies. MEDICATIONS: Gabapentin 300mg BID, Ibuprofen 600mg QD, Tylenol 500 mg Q4 hrs. PAST MEDICAL HISTORY: 1. Hypertension. 2. CHF, Diastolic dysfunction. 3. Eczema. 4. Psoriasis. 5. Neuropathy. 6.GERD. 7. COPD, no home O2. PAST SURGICAL HISTORY: Denies. FAMILY HISTORY: Mother with breast cancer at age 53, father had coronary artery disease. SOCIAL HISTORY: The patient smokes a pack of cigarettes a day since she was 14 years old. Reports social alcohol use once a week, the patient denies illicit drug use, the patient lives at home alone and uses a walker. REVIEW OF SYSTEMS: A 10-point review of systems is negative unless, otherwise, indicated in the above HPI. OBJECTIVE: VITAL SIGNS: Blood pressure 156/77, pulse 91, respirations 20, SpO2 of 100% on 3 L nasal cannula, temperature 97.7. HEENT: Head is atraumatic and normocephalic, pupils are equal bilateral, mucous membranes are moist. No cervical spine tenderness, normal range of motion of neck. RESPIRATORY: Good inspiratory and expiratory effort, respirations are even and nonlabored, cough noted, coarse breath sounds bilateral. CARDIOVASCULAR: Regular rate, regular rhythm, no murmurs. ABDOMEN: Soft, nondistended, nontender. PELVIS: Stable. EXTREMITIES: Moves all extremities, decreased sensation in lower extremities, unable to palpate pedal pulses, pulses noted with Doppler, right pedal and dorsalis pedis pulses diminished. Cellulitis to bilateral lower extremities and scaling, right greater than left. NEUROLOGIC: GCS 15. LABORATORY DATA: WBC 11.7, RBC 3.45, hemoglobin 13.4, hematocrit 40.7, platelets 115. PT 14.5, INR 1.1, APTT 28.3. Sodium 136, potassium 2.9, chloride 94, carbon dioxide 29, BUN 8, creatinine 0.73, estimated GFR 78, glucose 125. AST 116, ALT 50, alkaline phos 110. IMAGING DATA: Left femur x-ray, impression; displaced distal right femur fracture. ASSESSMENT: 1. Mechanical fall from bed. 2. Right displaced femur fracture. 3. Bilateral lower extremity cellulitis, right greater than left. 4. Hypokalemia. 5. Thrombocytopenia. 6. History of chronic obstructive pulmonary disease, no home oxygen, Neuropathy, Psoriasis. CHF, Diastolic dysfunction, and Gastroesophageal reflux disease. PLAN: Admit to the surgical floor. Replace electrolytes. N.p.o. Maintenance IV fluids, normal saline at 120 an hour x1 bag. Orthopedic Surgery plans to take the patient to the OR this morning for repair. Wound Care to evaluate and treat cellulitis. PT and OT to evaluate and treat postop. Pain control. Post-acute screen for inpatient rehab. The plan will be discussed with the attending after this dictation. The plan was discussed with the patient who agrees. Job ID: [id number] [facility]
[2020-05-15 07:42] LABS: #Lymphocytes 0.5 thou/uL (1.20-3.40); #Monocytes 0.6 thou/uL (0.11-0.59); #Neutrophils 7.6 thou/uL (1.40-6.50); %Basophils 0.4 % (0.0-1.0); %Eosinophils 0.1 % (0.0-10.0); %Lymphocytes 5.6 % (21.0-51.0); %Monocytes 6.4 % (0.0-10.0); %Neutrophils 87.4 % (42.0-75.0); MDiff Complete? YES; Macrocytosis SLIGHT = 6-15 cells (100X) (0-5/hpf); Mean Corpuscular HGB CONC 33.5 g/dL (32.0-36.0); Mean Corpuscular Hemoglobin 39.7 pg (27.0-31.0); Mean Platelet Volume 7.5 fL (7.4-10.4); Platelet Count 109 thou/uL (130-400); Platelet Morphology Comment Appears Decreased; RBC Distribution Width 15.4 % (11.5-14.5); Red Blood Cell (RBC) Count 3.01 mill/uL (4.20-5.40); White Blood Cell (WBC) Count 8.7 thou/uL (4.8-10.8)
[2020-05-15] MEDS ORDERED: Potassium Chloride 40 MEQ in Sodium Chloride 0.9% 250 ML 250 ML IVPB SCH (07:45)
[2020-05-15] MEDS: Sulfameth/Trimethoprim DS 800-160mg TAB PO SCH ×2 (07:55→21:49)
[2020-05-15] MEDS ORDERED: Magnesium Sulfate 4 GM in Sodium Chloride 0.9% 250 ML 250 ML IVPB SCH (08:30)
[2020-05-15] MEDS: Morphine 2 MG/ML VIAL SLOW IVP PRN ×3 (08:52→21:48)
[2020-05-15] MEDS: Senokot S 8.6-50 MG TAB PO SCH ×3 (08:58→21:49)
[2020-05-15] MEDS: Polyethylene Glycol 3350 17 GM Packet PO SCH (08:58)
[2020-05-15] MEDS ORDERED: Gabapentin 300 MG CAP PO SCH ×2 (09:00→21:00)
--- NOTE | 2020-05-15 09:55 | HP ---
CHIEF COMPLAINT: Fall with right thigh pain. HISTORY OF PRESENT ILLNESS: The patient is a 74-year-old female, who was trying to get in bed and slipped and fell on her right side. She was having pain in her right leg and shoulder. PAST MEDICAL HISTORY: Significant for hypertension, neuropathy, gastroesophageal reflux, COPD. PAST SURGICAL HISTORY: None. MEDICATIONS: 1. Gabapentin. 2. Ibuprofen. 3. Tylenol. ALLERGIES: SHE HAS NO KNOWN DRUG ALLERGIES. FAMILY HISTORY: Breast cancer. SOCIAL HISTORY: She smokes a pack a day since she was 14. Social alcohol. PHYSICAL EXAMINATION: VITAL SIGNS: Temperature 97.5, pulse 93, blood pressure 157/71. GENERAL: She is an elderly obese female, awake, on oxygen. HEENT: No evidence of trauma. LUNGS: Clear. HEART: Regular rate and rhythm. ABDOMEN: Soft, nondistended, nontender. She has some mild shoulder tenderness. She has some right thigh tenderness. She has a femur fracture showing a displaced spiral fracture of the distal femoral shaft on the right. IMAGING STUDIES: Chest x-ray is negative. ASSESSMENT: Right femur fracture. PLAN: We will get shoulder x-rays. Consult Orthopedics. Job ID: [id number]
[2020-05-15] MEDS ORDERED: Morphine 4 MG/ML VIAL SLOW IVP SCH (10:30)
--- NOTE | 2020-05-15 11:05 | RAD ---
Exam:Right shoulder 3 views HISTORY: Fall. Pain. COMPARISON: None FINDINGS: Severe degenerative change along the acromioclavicular joint space. Visualized clavicle, sc apula and ribs do not demonstrate a fracture Limited evaluation the normal joint space due to patient position. No fracture or dislocation. IMPRESSION: No fracture.
[2020-05-15] MEDS: traMADol HCl 50 MG TAB PO SCH ×4 (11:17→23:35)
[2020-05-15] MEDS ORDERED: Albumin 5% 500 ML ONE (12:31)
[2020-05-15] MEDS ORDERED: Milk Of Magnesia 30 ML UDCUP PO PRN (13:42)
[2020-05-15] MEDS ORDERED: Bisacodyl 10 MG SUPP PR PRN (13:42)
[2020-05-15] MEDS ORDERED: Cepastat Lozenges 1 LOZ PO PRN (13:42)
[2020-05-15] MEDS ORDERED: Ondansetron ODT 4 MG TAB PO PRN (13:42)
[2020-05-15] MEDS ORDERED: Acetaminophen 500 MG TAB PO PRN (13:42)
[2020-05-15] MEDS ORDERED: HYDROcodone/Acetaminophen 10/325 mg Tablet PO PRN ×2 (13:48)
--- NOTE | 2020-05-15 14:23 | RAD ---
Exam:2 views right femur HISTORY: Fall. Pain. COMPARISON: 05/15/2019 FINDINGS: There is redemonstration of a distal femur fracture. There is an the medullary ines with 2 d istal interlocking screws. No perihardware lucency. Definite acute fracture is not appreciated. Soft tissue swelling is presumed to be postoperative. IMPRESSION: Internal fixation of a known distal femur fracture. No perihardware lucency. Fracture celi ency persists.
[2020-05-15] MEDS ORDERED: Rocuronium Bromide 10 MG/ML (10ML VIAL) ONE (14:27)
[2020-05-15] MEDS ORDERED: Lidocaine 1% PF 5 ML VIAL ONE (14:27)
[2020-05-15] MEDS ORDERED: PHENYLEPHRINE-NS 100 MCG/ML 10 ML SYRINGE ONE (14:27)
[2020-05-15] MEDS ORDERED: Succinylcholine 200 MG/10 ml SYRINGE FS ONE (14:27)
[2020-05-15] MEDS ORDERED: Glycopyrrolate 0.2 MG/ML 5 ML SYRINGE ONE (14:27)
--- NOTE | 2020-05-15 15:06 | CON ---
DATE OF CONSULTATION: 05/15/2020 HISTORY OF PRESENT ILLNESS: Ms. Garza is a 74-year-old white female, who lives at home alone. She normally ambulates with a walker. The patient has a history of COPD, neuropathy, diastolic dysfunction, hypertension, gastroesophageal reflux. The patient slipped out of bed, twisted her right lower extremity, had immediate pain in the right thigh area. The patient was seen at [facility]. X-rays revealed a spiral fracture of the right distal femoral shaft. She was referred here for further evaluation. She has no different neurologic complaints in her right lower extremity. ALLERGIES: WHICH SHE STATES MAKES HER FEEL DRUNK. MEDICATIONS: 1. Gabapentin. 2. Ibuprofen. 3. Tylenol. PAST MEDICAL HISTORY: Hypertension, diastolic dysfunction with CHF, eczema, psoriasis, neuropathy, GERD, COPD. The patient currently is not on oxygen. SOCIAL HISTORY: The patient smokes at least one pack of cigarettes per day. She drinks 1 to 2 alcoholic drinks at night. She does have three daughters who live fairly close to her. PHYSICAL EXAMINATION: GENERAL: The patient is pleasant female, alert and oriented x3. Cooperative with examination. VITAL SIGNS: The patient is afebrile. Temperature 97.5, pulse 93, respiratory rate 20, blood pressure 157/71, O2 saturation 100% on 3 L per nasal cannula. HEENT: Unremarkable for age. Cranial nerves 2 through 12 are grossly intact. NECK: Has good range of motion without pain. Thoracic lumbar spine nontender to palpation. LUNGS: Clear bilaterally. HEART: Regular rate and rhythm. ABDOMEN: Soft and nontender. Bowel sounds positive. : Not done. EXTREMITIES: The patient is able to move her upper extremities, left lower extremity without pain. She is able to flex and extend the right toes and ankle. She has poor pulses distally, but are present with Doppler. IMAGING DATA: X-rays of the right femur show spiral fracture right distal femoral shaft, which extends almost to the supracondylar region. LABORATORY DATA: White count 8.7, hemoglobin 12, hematocrit 35.7. Chemistries show potassium is slightly low at 3.2, chloride 97. BNP is 95.6. IMPRESSION: 1. Displaced spiral fracture of the right distal femur. 2. COPD. 3. Bilateral lower extremity cellulitis, right greater than left. 4. Hypokalemia. 5. Thrombocytopenia. 6. Psoriasis. 7. History of CHF. 8. Diastolic dysfunction. 9. Gastroesophageal reflux disease. PLAN: The patient will require stabilization of the right distal femoral shaft. I will plan on placing a retrograde interlocking intramedullary ines in the right femur. The patient's questions were answered and agreed to the procedure. Since she lives at home and has to use a walker already, she will probably need to go to alf facility post hospitalization or live with one of her daughters. Job ID: [id number]
[2020-05-15] MEDS: Oxazepam 10 MG CAP PO SCH ×2 (15:09→21:48)
--- NOTE | 2020-05-15 16:08 | OP ---
DATE OF PROCEDURE: 05/15/2020 PREOPERATIVE DIAGNOSIS: Displaced spiral fracture of the right distal femoral shaft. POSTOPERATIVE DIAGNOSIS: Displaced spiral fracture of the right distal femoral shaft. PROCEDURE PERFORMED: Interlocking intramedullary rodding of the right distal femur. ANESTHESIA: General. DESCRIPTION OF PROCEDURE: The patient was given preoperative IV antibiotics, taken to the operating room, placed in supine position. Satisfactory general anesthesia was performed. The patient was placed on the operating table in the supine position. The right upper extremity was sterilely prepped and draped in usual fashion. A longitudinal incision was made over the anterior aspect of the right knee, and anterior medial parapatellar arthrotomy was performed. The patient was noted to have significant arthritic changes in the knee joint. Using the retrograde Synthes intramedullary rodding set, a guide was placed through the distal femur just anterior to the intercondylar notch, and under fluoroscopic visualization, a guide wire was placed through the distal femur crossing the fracture, and this distal femur was then over-reamed with a 13 mm reamer. A reaming ines was then placed into the femur and was sequentially reamed up to 13 mm. The appropriate length ines was measured, and a Synthes 12 mm retrograde femoral nail that was 340 mm in length was inserted into the femur, and two 5.0 locking screws were placed in the distal aspect of the femur and in the intramedullary ines distally, and one was placed from anterior to posterior in the proximal aspect of the femur. This again was all performed under fluoroscopic visualization, showed good reduction of the femoral fracture with good stability. The wounds were then all irrigated with antibiotic solution. The larger knee wound was closed using #2 Vicryl for the retinacular tissue, 0 Vicryl for the fat and subcutaneous tissue, and the skin was closed skin lilly. The three small incisions to place the interlocking nails, two on the lateral aspect of the distal thigh and one in the anterior aspect of the proximal thigh, were all closed with lilly. Sterile dressing was applied. The patient was awakened, extubated, and transferred to recovery room stable condition. ESTIMATED BLOOD LOSS: 150 mL. COMPLICATIONS: None. Job ID: [id number]
[2020-05-15] MEDS ORDERED: Promethazine HCl 12.5 MG in Sodium Chloride 0.9% 50 ML IVPB PRN (16:12)
[2020-05-15] MEDS: Ketorolac Tromethamine 30 MG/ML VIAL IVP SCH ×2 (17:55→23:29)
[2020-05-15] MEDS: Acetaminophen 500 MG TAB PO SCH ×3 (18:03→23:35)
[2020-05-15 18:07] LABS: SARS-CoV-2 PCR by NAA Not Detected (NotDetected)
--- NOTE | 2020-05-15 18:11 | RAD ---
2 VIEWS RIGHT KNEE: Date: 05/15/2020 Time: 0233 hours HISTORY: Open reduction and internal fixation humeral fracture. FINDINGS/IMPRESSION: Limited fluoroscopic views of the right knee were submitted for interpretation. The patient is status post retrograde intramedullary ines fixation of the distal femur fracture. POS: EAA
[2020-05-15] MEDS: Ferrous Gluconate 324 MG TAB PO SCH (21:48)
[2020-05-15] MEDS: Gabapentin 300 MG CAP PO SCH (21:49)
[2020-05-15] MEDS: Aspirin 325 MG TAB PO SCH (21:50)
[2020-05-15] MEDS: CEFAZOLIN 2 GM in Premix Bag 1 BAG IVPB SCH (21:50)
[2020-05-15] MEDS: Ondansetron PF 4 MG/2 ML Vial IVP PRN (22:16)
[2020-05-16] MEDS ORDERED: Ketorolac Tromethamine 30 MG/ML VIAL ONE ×2 (06:24→11:34)
[2020-05-16] MEDS ORDERED: traMADol HCl 50 MG TAB ONE ×2 (06:24→11:35)
[2020-05-16] MEDS ORDERED: Acetaminophen 500 MG TAB ONE ×2 (06:25→11:35)
[2020-05-16] MEDS: traMADol HCl 50 MG TAB PO SCH ×5 (06:50→23:36)
[2020-05-16] MEDS: Ketorolac Tromethamine 30 MG/ML VIAL IVP SCH ×3 (06:50→17:36)
[2020-05-16] MEDS: Acetaminophen 500 MG TAB PO SCH ×4 (06:50→23:35)
[2020-05-16] MEDS ORDERED: Senokot S 8.6-50 MG TAB ONE (08:29)
[2020-05-16] MEDS ORDERED: Multivitamin W/ Minerals 1 TAB ONE (08:29)
[2020-05-16] MEDS ORDERED: Thiamine 100 MG TAB ONE (08:30)
[2020-05-16] MEDS ORDERED: Sulfameth/Trimethoprim DS 800-160mg TAB ONE (08:31)
[2020-05-16] MEDS ORDERED: Aspirin 325 MG TAB ONE (08:31)
[2020-05-16] MEDS ORDERED: Ferrous Gluconate 324 MG TAB ONE (08:31)
[2020-05-16] MEDS ORDERED: Folic Acid 1 MG TAB ONE (08:32)
[2020-05-16] MEDS ORDERED: Gabapentin 300 MG CAP ONE ×2 (08:32→15:24)
[2020-05-16] MEDS ORDERED: Polyethylene Glycol 3350 17 GM Packet ONE (08:32)
[2020-05-16] MEDS ORDERED: Multivitamin W/ Minerals 1 TAB PO SCH (09:00)
[2020-05-16] MEDS: Senokot S 8.6-50 MG TAB PO SCH ×4 (09:47→22:06)
[2020-05-16] MEDS: Sulfameth/Trimethoprim DS 800-160mg TAB PO SCH ×2 (09:47→21:46)
[2020-05-16] MEDS: Thiamine 100 MG TAB PO SCH (09:47)
[2020-05-16] MEDS: Multivitamin W/ Minerals 1 TAB PO SCH (09:47)
[2020-05-16] MEDS: Oxazepam 10 MG CAP PO SCH ×3 (09:47→21:46)
[2020-05-16] MEDS: Aspirin 325 MG TAB PO SCH ×2 (09:47→21:47)
[2020-05-16] MEDS: Folic Acid 1 MG TAB PO SCH (09:47)
[2020-05-16] MEDS: Gabapentin 300 MG CAP PO SCH ×3 (09:47→21:47)
[2020-05-16] MEDS: Polyethylene Glycol 3350 17 GM Packet PO SCH (09:47)
[2020-05-16] MEDS: Ferrous Gluconate 324 MG TAB PO SCH ×2 (09:47→21:46)
--- NOTE | 2020-05-16 11:44 | RAD ---
Portable frontal chest radiograph: 05/16/2020 COMPARISON: 05/15/2020 HISTORY: Short of breath FINDINGS: Mild patchy linear density again noted within the left base which may signify mild infiltra te, volume loss, or scar. There is slight stable blunting of the left costophrenic angle as well. No pneumothorax, lobar consolidation, or alveolar edema. IMPRESSION: Stable appearance of the chest-no acute findings.
--- NOTE | 2020-05-16 12:32 | PRG ---
DATE OF SERVICE: 05/16/2020 SUBJECTIVE: The patient is currently postop day 1, status post open reduction and internal fixation of right distal femur fracture. She was admitted status post ground level fall, in which she sustained the above injury. Yesterday, she underwent her above procedure. Overnight, there were no reported issues. The patient reports that her pain is controlled, she is tolerating a diet, and the plan is to begin physical and occupational therapy today. PHYSICAL EXAMINATION: VITAL SIGNS: Temperature is 98.0, heart rate 88, blood pressure 110/68, respirations 16, and oxygen saturation is 100% on 3 L via nasal cannula. GENERAL: The patient is resting comfortably in bed. She is awake, alert, conversant, appropriate. [place] Coma Scale is 15. HEENT: Unremarkable. LUNGS: Clear to auscultation bilaterally. HEART: Regular rate and rhythm. ABDOMEN: Soft, flat, nontender with active bowel sounds. EXTREMITIES: Neurovascularly intact x4. Postop dressing is clean, dry, and intact. LABORATORY DATA: There are no labs or radiographs reviewed this morning. ASSESSMENT AND PLAN: 1. Status post ground level fall. 2. Postoperative day 1, status post intramedullary nail fixation of right distal femur fracture. 3. Bilateral lower extremity cellulitis, right greater than left, stable. 4. History of chronic obstructive pulmonary disease, neuropathy, cirrhosis, congestive heart failure with diastolic dysfunction, and gastroesophageal reflux disease. Plan will be to continue supportive care, encourage physical and occupational therapy, and discuss placement. The patient's cellulitis is being evaluated by Wound Care. The patient was evaluated this morning with Dr. Jewell during rounds. Job ID: [id number]
[2020-05-16] MEDS ORDERED: Lactated Ringer's 500 ML IV SCH ×2 (14:45)
[2020-05-16] MEDS ORDERED: Potassium Chloride 20 MEQ TAB PO SCH (16:45)
[2020-05-16] MEDS ORDERED: D5 0.9% NS w/ 20 mEq KCl 1,000 ML IV SCH (16:45)
[2020-05-16] MEDS ORDERED: Potassium Chloride 10 MEQ in Dextrose 5 % And 0.9 % NaCl 1,000 ML IV SCH (16:45)
[2020-05-16 16:50] LABS: ALT (SGPT) 22 U/L (8-55); AST (SGOT) 45 U/L (5-34); Albumin 2.8 g/dL (3.4-4.8); Alkaline Phosphatase 72 U/L (40-110); Anion Gap 14 mmol/L (10-20); BUN (Urea Nitrogen) 16 mg/dL (9.8-20.1); Bilirubin, Total 0.7 mg/dL (0.2-1.2); Calc. Creatinine Clearance 49 mL/min (70-130); Calcium 7.1 mg/dL (7.8-10.44); Carbon Dioxide 26 mmol/L (23-31); Chloride 98 mmol/L (98-107); Globulin 2.3 g/dL (2.4-3.5); Glucose 92 mg/dL (83-110); Magnesium 2.3 mg/dL (1.6-2.6); Phosphorus 3.9 mg/dL (2.3-4.7); Potassium 3.8 mmol/L (3.5-5.1); Protein, Total 5.1 g/dL (5.8-8.1); Sodium 134 mmol/L (136-145)
[2020-05-16] MEDS: Nicotine 14 MG PATCH TD SCH (17:18)
[2020-05-16 18:14] LABS: Hemoglobin 8.8 g/dL (12.0-16.0); Mean Corpuscular HGB CONC 33.6 g/dL (32.0-36.0); Mean Corpuscular Hemoglobin 40.8 pg (27.0-31.0); Mean Platelet Volume 8.1 fL (7.4-10.4); Platelet Count 82 thou/uL (130-400); RBC Distribution Width 15.8 % (11.5-14.5); Red Blood Cell (RBC) Count 2.15 mill/uL (4.20-5.40); White Blood Cell (WBC) Count 7.8 thou/uL (4.8-10.8)
[2020-05-16 18:35] LABS: Anisocytosis SLIGHT = 6-15 cells (100X) (0-5/hpf); Band 50 % (5-11); Eosinophils 2 % (0-10); Lymphocytes 8 % (21-51); MDiff Complete? YES; Macrocytosis MODERATE=16-30 cells (100X) (0-5/hpf); Metamyelocyte 1 % (0-0); Monocytes 4 % (0-10); Neutrophil 34 % (42-75); Platelet Morphology Comment Appears Decreased; Polychromasia MODERATE = 3-4 cells (100X) (0-2/hpf); Reactive Lymphocytes 1 % (0-10); Reflex for Review?? NO
[2020-05-16] MEDS: CEFAZOLIN 2 GM in Premix Bag 1 BAG IVPB SCH (19:47)
[2020-05-16] MEDS ORDERED: Sodium Chloride 0.9% 1,000 ML IV SCH (22:00)
[2020-05-17 05:46] LABS: Hemoglobin 8.2 g/dL (12.0-16.0); Mean Corpuscular HGB CONC 34.4 g/dL (32.0-36.0); Mean Corpuscular Hemoglobin 42.1 pg (27.0-31.0); Mean Platelet Volume 8.6 fL (7.4-10.4); Platelet Count 78 thou/uL (130-400); RBC Distribution Width 15.4 % (11.5-14.5); Red Blood Cell (RBC) Count 1.96 mill/uL (4.20-5.40); White Blood Cell (WBC) Count 7.1 thou/uL (4.8-10.8)
[2020-05-17] MEDS: Acetaminophen 500 MG TAB PO SCH ×4 (05:49→23:19)
[2020-05-17] MEDS: Oxazepam 10 MG CAP PO SCH ×3 (05:49→21:32)
[2020-05-17] MEDS: traMADol HCl 50 MG TAB PO SCH ×4 (05:50→23:19)
[2020-05-17 05:59] LABS: Anion Gap 15 mmol/L (10-20); BUN (Urea Nitrogen) 23 mg/dL (9.8-20.1); Calc. Creatinine Clearance 28 mL/min (70-130); Calcium 7.1 mg/dL (7.8-10.44); Carbon Dioxide 25 mmol/L (23-31); Chloride 98 mmol/L (98-107); Glucose 89 mg/dL (83-110); Magnesium 2.2 mg/dL (1.6-2.6); Phosphorus 4.7 mg/dL (2.3-4.7); Sodium 133 mmol/L (136-145)
[2020-05-17] MEDS ORDERED: Furosemide 20 MG/2 ML VIAL SLOW IVP SCH (07:00)
[2020-05-17] MEDS ORDERED: Hydrocortisone Sod Succ/PF 100 mg/2 ml Vial IVP SCH (07:45)
--- NOTE | 2020-05-17 07:46 | RAD ---
XR Chest 1 View Portable HISTORY: Shortness of breath COMPARISON: Exam done earlier today and 05/16/2020 exam. FINDINGS: Some patchy mildly increased interstitial lung changes are seen in both lung wheeler slightl y more confluent change in the left base and right midlung field. The changes in the right midlung field may be slightly more prominent than on the previous exam. IMPRESSION: Questionable slight increase parenchymal changes in the right midlung field.
[2020-05-17] MEDS ORDERED: Sodium Chloride 0.9% 1,000 ML IV SCH (10:15)
[2020-05-17] MEDS ORDERED: Sodium Chloride 0.9% 500 ML IV SCH (10:15)
--- NOTE | 2020-05-17 10:15 | PRG ---
DATE OF SERVICE: 05/17/2020 SUBJECTIVE: Kayla states that she has fairly good pain control. She is status post ORIF of the right distal femur. She reports no neurologic complaints in the right lower extremity. OBJECTIVE: VITAL SIGNS: The patient has been afebrile. Blood pressure is 95/55, O2 saturation 96% on 2 L. LABORATORY DATA: Today shows hemoglobin 8.2, hematocrit 23.9. The patient will work with physical, occupational therapy. She will need to just be touchdown weightbearing on the right lower extremity until the fracture is healed. We will have case management work with the patient as far as appropriate discharge planning. Currently, the patient is considering going home with the help of her daughter. Job ID: [id number]
[2020-05-17] MEDS: Senokot S 8.6-50 MG TAB PO SCH ×4 (10:54→22:52)
[2020-05-17] MEDS: Gabapentin 300 MG CAP PO SCH ×2 (10:55→15:24)
[2020-05-17] MEDS: Ferrous Gluconate 324 MG TAB PO SCH (11:40)
[2020-05-17] MEDS: Sulfameth/Trimethoprim DS 800-160mg TAB PO SCH (11:40)
[2020-05-17] MEDS: Aspirin 325 MG TAB PO SCH ×2 (11:41→21:32)
[2020-05-17] MEDS: Multivitamin W/ Minerals 1 TAB PO SCH (11:41)
[2020-05-17] MEDS: Folic Acid 1 MG TAB PO SCH (11:41)
[2020-05-17] MEDS: Thiamine 100 MG TAB PO SCH (11:41)
[2020-05-17] MEDS: Polyethylene Glycol 3350 17 GM Packet PO SCH (11:43)
[2020-05-17] MEDS: Hydrocortisone Sod Succ/PF 100 mg/2 ml Vial IVP SCH ×2 (13:26→21:32)
--- NOTE | 2020-05-17 14:42 | PRG ---
DATE OF SERVICE: 05/17/2020 SUBJECTIVE: Kayla is a 74-year-old female, status post ORIF of right distal femur. The patient is recovering on surgical floor. The patient is complaining of some pain. The patient is tolerating regular diet. Urine output over the last 12 hours is 150 mL, with rising BUN and creatinine. OBJECTIVE: VITAL SIGNS: Temperature 98.6, respiratory rate 18, O2 of 95, blood pressure 103/58. GENERAL: The patient is recovering well in the bed. No acute distress. CARDIAC: Regular rate and rhythm. LUNGS: Equal breath sounds bilaterally, crackles in the upper respiratory when the patient talks. ABDOMEN: Protuberant, soft, nontender. EXTREMITIES: Right thigh dressing C/DI no erythema. Dressing clean, dry, and intact. No strikethrough. LABORATORY DATA: Sodium 133, potassium 5.0, chloride 98, carbon dioxide 25, anion gap 15, BUN 23, creatinine 2.4, glucose 89, phosphorus 4.7, magnesium 2.2. BNP 204. Cortisol 9.10. IMAGING: No images. Echo EF 65-70% ASSESSMENT: 1. Mechanical fall. 2. Status post open reduction and internal fixation of right femur. 3. Acute kidney injury, up trending 4. Bilateral lower venoustasis 5. pmhx CHF, COPD, stroke, 6. Dysphagia. 7 Resting tremor 8 Right leg pressure ulcer PLAN: The patient is recovering well on surgical floor. Continue with PT and OT. LENNY up trending, give 1 unit PRBC for UO. Patient didn't respond to Lasix. Echo EF 65-70%. -f/u urine Lytes, -Switch NS to sodium bicarbonate -Trend CK 871 -Barium Swallow for Dysphagia tomorrow -Continue pain control, bowel regimen. -Cortisol 9, continue to replete. until BP stable. -Replete electrolytes. -Continue wound care This patient was seen at bedside with Dr. Barber and he agrees with the plan and assessment. Job ID: [id number] [facility]
[2020-05-17 17:39] LABS: #Lymphocytes 0.1 thou/uL (1.20-3.40); #Monocytes 0.3 thou/uL (0.11-0.59); %Eosinophils 0.1 % (0.0-10.0); %Lymphocytes 1.7 % (21.0-51.0); %Neutrophils 95.2 % (42.0-75.0); Hemoglobin 9.4 g/dL (12.0-16.0); Mean Corpuscular HGB CONC 34.5 g/dL (32.0-36.0); Mean Corpuscular Hemoglobin 40.8 pg (27.0-31.0); Mean Platelet Volume 7.7 fL (7.4-10.4); Platelet Count 90 thou/uL (130-400); RBC Distribution Width 18.6 % (11.5-14.5); Red Blood Cell (RBC) Count 2.31 mill/uL (4.20-5.40); White Blood Cell (WBC) Count 8.4 thou/uL (4.8-10.8)
[2020-05-17 17:48] LABS: Anion Gap 15 mmol/L (10-20); BUN (Urea Nitrogen) 27 mg/dL (9.8-20.1); CK (CPK) 824 U/L (29-168); Calc. Creatinine Clearance 26 mL/min (70-130); Calcium 7.2 mg/dL (7.8-10.44); Carbon Dioxide 24 mmol/L (23-31); Chloride 100 mmol/L (98-107); Glucose 124 mg/dL (83-110); Magnesium 2.3 mg/dL (1.6-2.6); Phosphorus 4.9 mg/dL (2.3-4.7); Potassium 5.1 mmol/L (3.5-5.1); Sodium 134 mmol/L (136-145)
[2020-05-17] MEDS: Nicotine 14 MG PATCH TD SCH (17:51)
[2020-05-17 17:58] LABS: Anisocytosis SLIGHT = 6-15 cells (100X) (0-5/hpf); MDiff Complete? YES; Macrocytosis MODERATE=16-30 cells (100X) (0-5/hpf); Platelet Morphology Comment Appears Decreased; Polychromasia SLIGHT = 2-3 cells (100X) (0-2/hpf); Stomatocytes SLIGHT = 2-5 cells (100X) (0-1/hpf); Target Cells SLIGHT = 2-5 cells (100X) (0-1/hpf)
[2020-05-17] MEDS: Heparin 5,000 UNITS/ML VIAL SC SCH (21:31)
[2020-05-17] MEDS: Sodium Bicarbonate 150 MEQ in Dextrose 5% in Water 1,000 ML IV SCH (21:33)
[2020-05-18 04:25] LABS: Bacteria/HPF 1+ HPF (None Seen); Bilirubin Negative (Negative); Blood, Urine 2+ (Negative); Calcium Oxalate Crystals Rare HPF (None Seen); Clarity Turbid (Clear); Glucose, Urine (Dipstick) Normal (Negative); Ketone, Urine Negative (Negative); Leukocyte 75 Leu/uL (Negative); Nitrite Negative (Negative); Protein, Urine (Dipstick) 50 mg/dL (Neg-Trace); Squamous Epithelial 0-3 HPF (0-3); Urobilinogen Normal mg/dL (Less than 2); WBC/HPF 21-50 HPF (0-3)
[2020-05-18 04:26] LABS: Urine Culture Reflex Yes Yes
[2020-05-18] MEDS ORDERED: Lactated Ringer's 500 ML IV SCH (04:45)
[2020-05-18] MEDS: Hydrocortisone Sod Succ/PF 100 mg/2 ml Vial IVP SCH ×3 (05:08→21:29)
[2020-05-18] MEDS: cefTRIAXone\\ROCEPHIN 1 GM in Sodium Chloride 0.9% 100 ML IVPB SCH (05:09)
[2020-05-18] MEDS: Oxazepam 10 MG CAP PO SCH ×3 (05:37→21:28)
[2020-05-18] MEDS: Acetaminophen 500 MG TAB PO SCH ×4 (05:37→23:51)
[2020-05-18] MEDS: traMADol HCl 50 MG TAB PO SCH ×4 (05:37→20:27)
[2020-05-18 05:58] LABS: #Lymphocytes 0.5 thou/uL (1.20-3.40); #Monocytes 0.5 thou/uL (0.11-0.59); #Neutrophils 8.2 thou/uL (1.40-6.50); %Basophils 0.1 % (0.0-1.0); %Eosinophils 0.2 % (0.0-10.0); %Lymphocytes 5.2 % (21.0-51.0); %Monocytes 5.4 % (0.0-10.0); %Neutrophils 89.2 % (42.0-75.0); Hemoglobin 9.4 g/dL (12.0-16.0); Mean Corpuscular HGB CONC 33.6 g/dL (32.0-36.0); Mean Corpuscular Hemoglobin 39.7 pg (27.0-31.0); Mean Platelet Volume 7.6 fL (7.4-10.4); Platelet Count 94 thou/uL (130-400); RBC Distribution Width 18.4 % (11.5-14.5); Red Blood Cell (RBC) Count 2.37 mill/uL (4.20-5.40); White Blood Cell (WBC) Count 9.2 thou/uL (4.8-10.8)
[2020-05-18 06:04] LABS: Anion Gap 16 mmol/L (10-20); BUN (Urea Nitrogen) 32 mg/dL (9.8-20.1); CK (CPK) 615 U/L (29-168); Calc. Creatinine Clearance 26 mL/min (70-130); Calcium 7.2 mg/dL (7.8-10.44); Carbon Dioxide 25 mmol/L (23-31); Chloride 99 mmol/L (98-107); Glucose 130 mg/dL (83-110); Magnesium 2.4 mg/dL (1.6-2.6); Phosphorus 4.7 mg/dL (2.3-4.7); Potassium 4.8 mmol/L (3.5-5.1); Sodium 135 mmol/L (136-145)
[2020-05-18 06:20] LABS: MDiff Complete? YES; Macrocytosis MODERATE=16-30 cells (100X) (0-5/hpf); Platelet Morphology Comment Appears Decreased
--- NOTE | 2020-05-18 08:27 | RAD ---
Portable frontal chest radiograph: 05/18/2020 COMPARISON: 05/17/2020 HISTORY: Short of breath FINDINGS: Stable heart and mediastinal contours. Mild diffuse increased linear interstitial density i s noted, unchanged. No pneumothorax or pleural fluid. No focal consolidation or alveolar edema. IMPRESSION: No significant interval change.
[2020-05-18] MEDS: Sodium Bicarbonate 150 MEQ in Dextrose 5% in Water 1,000 ML IV SCH (09:10)
--- NOTE | 2020-05-18 10:13 | RAD ---
Exam: Modified barium swallow HISTORY: Feeding difficulties. Dysphagia, unspecified Exposure: 1.165 pedro per centimeter square. 1.9 minutes FINDINGS: In the presence speech pathologist, the patient was ministered thin liquid, nectar thick, p udding and solid consistencies. There is penetration with nectar thick consistencies IMPRESSION: Please refer to speech pathologist report for feeding recommendation
[2020-05-18] MEDS: Heparin 5,000 UNITS/ML VIAL SC SCH ×3 (11:45→21:29)
[2020-05-18] MEDS: Polyethylene Glycol 3350 17 GM Packet PO SCH (11:45)
[2020-05-18] MEDS: Aspirin 81 mg Enteric Coated Tablet PO SCH ×2 (11:46→20:27)
[2020-05-18] MEDS: Senokot S 8.6-50 MG TAB PO SCH ×2 (11:46→20:27)
[2020-05-18] MEDS: Multivitamin W/ Minerals 1 TAB PO SCH (11:46)
[2020-05-18] MEDS: Thiamine 100 MG TAB PO SCH (11:46)
[2020-05-18] MEDS: Folic Acid 1 MG TAB PO SCH (11:46)
[2020-05-18] MEDS ORDERED: Sodium Bicarbonate 150 MEQ in Dextrose 5% in Water 1,000 ML IV SCH (11:55)
[2020-05-18] MEDS ORDERED: Furosemide 20 MG TAB PO SCH (12:00)
[2020-05-18] MEDS: Nicotine 14 MG PATCH TD SCH (12:44)
--- NOTE | 2020-05-18 13:10 | PRG ---
DATE OF SERVICE: 05/18/2020 SUBJECTIVE: The patient is 3 days status post retrograde interlocking intramedullary rodding of the right distal femur. The patient reports good pain control. The patient's nurse reports that she is still unable to independently get out of bed. She is a basically . Her plan at this point at discharge is to go home because she states she has two daughters that live very close as well as a grandson. OBJECTIVE: VITAL SIGNS: The patient is afebrile. Blood pressure 142/81. LABORATORY DATA: Hemoglobin this morning is 9.4. PLAN: I discussed with the patient that she needs to work very hard with OT and PT to become as independent as possible. We need Case Management to talk with her and family members as far as disposition at discharge. Job ID: [id number]
--- NOTE | 2020-05-18 14:19 | PRG ---
DATE OF SERVICE: 05/18/2020 SUBJECTIVE: Ms. Garza is a 74-year-old female patient recovering on the surgical floor. Status post fall, postop day #3 three from IM ines right distal femur repair. The patient is sitting up in bed this morning on 2 L nasal cannula, talking, no acute distress. The patient does not use oxygen at home. The patient is tolerating regular diet and pain well controlled. OBJECTIVE: VITAL SIGNS: Temperature 98.6, pulse 95, respiratory rate 18, O2 94, blood pressure 142/81. GENERAL: Sitting up in bed on 2 L nasal cannula. No distress. CARDIAC: Normal sinus rhythm. LUNGS: Equal rise and fall of chest. Wheezing with inspiration. Crackles upper respiratory airway. ABDOMEN: Protuberant, soft, nontender. EXTREMITIES: Right thigh dressing in place. No erythema or strikethrough. The patient has bilateral venous stasis, right worse than left. LABORATORY DATA: Hemoglobin 9.4, hematocrit 28, white blood cell count 9.2, platelets 94. Sodium 135, potassium 4.8, and chloride 99, carbon dioxide 25, BUN 32, creatinine 2.6, creatine kinase 615, BNP 510. Repeat chest x-ray no change ASSESSMENT: 1. Mechanical fall. 2. Status post open reduction and internal fixation of femur. 3. Acute kidney injury plateauing, BUN and creatinine of 32/2.6. 4. Bilateral lower extremity venous stasis. 5. Congestive heart failure exacerbation. 6. Rhabdomyolysis 825,improving 7. Dysphagia. 8. Right leg pressure ulcer.. 9. Past medical history of CHF, COPD, and stroke 10.Adrenal insufficiency, cortisol 9.10 PLAN: 74 y/o s/p ORIF IM right femur. The patient is recovering on the surgical floor. 1.LENNY plateauing, BUN and creatinine are 32/2.66. The patient is started on sodium bicarbonate drip at 150 mL/h and received 1 unit of prbc blood 05/17 with improvement in kidney function. 2.BNP increased, Give the patient 40 mg furosemide cut bicarbonate to 50 mL an hour. 3.Dysphagia- Speech recommends administer thin liquids, nectar thick, pudding and solid consiste to prevent aspiration. 4 Bilateral lower venous stasis, compression dressing. 5.Right leg pressure ulcer. Continue wound care. 6 Continue DVT ppx SQH, IS, 7.Disposition, continue disposition planning. 8. Continue hydrocortisone, trend BP The patient was seen by Dr. Barber at bedside this morning and agrees with the assessment and plan. Job ID: [id number] MTDD
[2020-05-19] MEDS: cefTRIAXone\\ROCEPHIN 1 GM in Sodium Chloride 0.9% 100 ML IVPB SCH (03:48)
[2020-05-19] MEDS: Oxazepam 10 MG CAP PO SCH ×3 (05:37→21:10)
[2020-05-19] MEDS: Hydrocortisone Sod Succ/PF 100 mg/2 ml Vial IVP SCH (05:38)
[2020-05-19] MEDS: Acetaminophen 500 MG TAB PO SCH ×4 (05:38→23:10)
[2020-05-19 06:08] LABS: Anion Gap 14 mmol/L (10-20); BUN (Urea Nitrogen) 34 mg/dL (9.8-20.1); CK (CPK) 498 U/L (29-168); Calc. Creatinine Clearance 36 mL/min (70-130); Calcium 7.7 mg/dL (7.8-10.44); Carbon Dioxide 29 mmol/L (23-31); Chloride 97 mmol/L (98-107); Glucose 96 mg/dL (83-110); Magnesium 2.4 mg/dL (1.6-2.6); Phosphorus 3.3 mg/dL (2.3-4.7); Potassium 4.3 mmol/L (3.5-5.1); Sodium 136 mmol/L (136-145)
[2020-05-19] MEDS ORDERED: Furosemide 40 MG TAB PO SCH (07:30)
[2020-05-19] MEDS: Aspirin 81 mg Enteric Coated Tablet PO SCH ×2 (09:15→20:00)
[2020-05-19] MEDS: Senokot S 8.6-50 MG TAB PO SCH ×2 (09:15→19:59)
[2020-05-19] MEDS: Folic Acid 1 MG TAB PO SCH (09:15)
[2020-05-19] MEDS: Multivitamin W/ Minerals 1 TAB PO SCH (09:16)
[2020-05-19] MEDS: traMADol HCl 50 MG TAB PO SCH ×2 (09:16→20:00)
[2020-05-19] MEDS: Heparin 5,000 UNITS/ML VIAL SC SCH ×3 (09:16→20:00)
[2020-05-19] MEDS: Polyethylene Glycol 3350 17 GM Packet PO SCH (09:16)
[2020-05-19] MEDS: Thiamine 100 MG TAB PO SCH (09:16)
[2020-05-19] MEDS: Nicotine 14 MG PATCH TD SCH (17:10)
[2020-05-19] MEDS: Cyclobenzaprine 10 MG TAB PO PRN (20:00)
[2020-05-19] MEDS: traMADol HCl 50 MG TAB PO PRN (21:10)
--- NOTE | 2020-05-20 00:43 | PRG ---
DATE OF SERVICE: 05/20/2020 A 74-year-old female, status post IM ines, right distal femur, after a slip and fall. Patient was complaining of some pain last night.I went up to examine the patient, the patient was in distress holding her right leg. Added tramadol 50 mg p.r.n. gave 2mg morphine one time dose. Adjust pain regimen tomorrow, kidney function improving, consider adding Gabapentin. Job ID: [id number] MTDD
[2020-05-20] MEDS ORDERED: Morphine 2 MG/ML VIAL SLOW IVP ONE (01:00)
[2020-05-20] MEDS: traMADol HCl 50 MG TAB PO PRN (02:58)
[2020-05-20] MEDS: cefTRIAXone\\ROCEPHIN 1 GM in Sodium Chloride 0.9% 100 ML IVPB SCH (04:59)
[2020-05-20] MEDS: Ondansetron PF 4 MG/2 ML Vial IVP PRN ×2 (04:59→20:27)
[2020-05-20] MEDS: Oxazepam 10 MG CAP PO SCH ×3 (05:14→20:19)
[2020-05-20] MEDS: Acetaminophen 500 MG TAB PO SCH ×4 (05:14→22:48)
[2020-05-20 05:51] LABS: #Eosinphils 0.1 thou/uL (0.0-0.7); #Lymphocytes 1.1 thou/uL (1.20-3.40); #Neutrophils 5.5 thou/uL (1.40-6.50); %Basophils 0.1 % (0.0-1.0); %Eosinophils 1.3 % (0.0-10.0); %Lymphocytes 14.3 % (21.0-51.0); %Monocytes 13.1 % (0.0-10.0); %Neutrophils 71.1 % (42.0-75.0); Hemoglobin 8.7 g/dL (12.0-16.0); Mean Corpuscular HGB CONC 32.3 g/dL (32.0-36.0); Mean Platelet Volume 8.1 fL (7.4-10.4); Platelet Count 122 thou/uL (130-400); RBC Distribution Width 17.6 % (11.5-14.5); Red Blood Cell (RBC) Count 2.28 mill/uL (4.20-5.40); White Blood Cell (WBC) Count 7.7 thou/uL (4.8-10.8)
[2020-05-20 06:21] LABS: Anion Gap 14 mmol/L (10-20); BUN (Urea Nitrogen) 28 mg/dL (9.8-20.1); Calc. Creatinine Clearance 58 mL/min (70-130); Carbon Dioxide 33 mmol/L (23-31); Chloride 96 mmol/L (98-107); Glucose 67 mg/dL (83-110); Magnesium 2.1 mg/dL (1.6-2.6); Phosphorus 2.1 mg/dL (2.3-4.7); Sodium 139 mmol/L (136-145)
[2020-05-20] MEDS: Thiamine 100 MG TAB PO SCH (08:55)
[2020-05-20] MEDS: Multivitamin W/ Minerals 1 TAB PO SCH (08:55)
[2020-05-20] MEDS: Folic Acid 1 MG TAB PO SCH (08:55)
[2020-05-20] MEDS: traMADol HCl 50 MG TAB PO SCH ×2 (08:55→20:18)
[2020-05-20] MEDS: Polyethylene Glycol 3350 17 GM Packet PO SCH (08:55)
[2020-05-20] MEDS: Senokot S 8.6-50 MG TAB PO SCH ×2 (08:55→20:17)
[2020-05-20] MEDS: Heparin 5,000 UNITS/ML VIAL SC SCH ×3 (08:56→20:17)
--- NOTE | 2020-05-20 14:36 | PRG ---
DATE OF SERVICE: 05/20/2020 SUBJECTIVE: The patient remains on the surgical floor. She is status post a ground level fall, which she sustained a right femur fracture in which she underwent open reduction and internal fixation of same. She tolerated the procedure well. She did postoperatively have acute kidney injury, which is continuing to improve. She is making adequate urine. She reports her pain is controlled. She is tolerating a diet. She continues to work with Physical and Occupational Therapy. She is currently awaiting placement to the [facility]. OBJECTIVE: VITAL SIGNS: Temperature is 97.4, heart rate 94, blood pressure 132/59, respirations 18, oxygen saturation is 96% on 3 L via nasal cannula. GENERAL: The patient is resting comfortably in bed. She is awake, conversant, appropriate. [place] Coma Scale is 15. HEENT: Unremarkable. LUNGS: Clear to auscultation bilaterally. HEART: Regular rate and rhythm. ABDOMEN: Soft, nontender with active bowel sounds. EXTREMITIES: Neurovascularly intact x4. LABORATORY FINDINGS: White blood cell count 7.7, hemoglobin 8.7, hematocrit 26.8, platelets 122. Sodium 137, potassium 4.0, chloride 96, CO2 of 33, BUN 28, creatinine 1.19, glucose 67. There are no radiographs reviewed this morning. ASSESSMENT: 1. Status post ground level fall. 2. Status post open reduction and internal fixation of right distal femur. 3. Acute kidney injury, improved. 4. History of bilateral lower extremity venous stasis. 5. Congestive heart failure exacerbation, stable. 6. Rhabdomyolysis, improving. PLAN: Plan will be to continue supportive care, encourage physical and occupational therapy, and await final placement decision. Per Dr. Barber, she is okay for transfer to [facility] when bed is available. Job ID: [id number]
[2020-05-20] MEDS: Nicotine 14 MG PATCH TD SCH (17:31)
[2020-05-20] MEDS: Gabapentin 300 MG CAP PO SCH (20:18)
[2020-05-20] MEDS: Cyclobenzaprine 10 MG TAB PO PRN (20:18)
--- NOTE | 2020-05-21 00:47 | PRG ---
DATE OF SERVICE: 05/21/2020 SUBJECTIVE: Ms. Garza is a 74-year-old female, status post ground level fall, postop day 4 from ORIF fixation of right distal femur fracture. The patient is recovering well on the surgical floor. LENNY, CHF exacerbation resolving. Case Management is working with the patient to discharge her to a swing facility in [place]. OBJECTIVE: GENERAL: Patient was resting comfortably in bed. VITAL SIGNS: Temperature 98.2, pulse 87, respiratory rate 18, saturation 95% on 3 L of nasal cannula. Blood pressure 172/78. PLAN: Patient is hypertensive, tx hydralazine. Repeat CXR Dispo- [place] when Swing bed is available Job ID: [id number] [facility]
[2020-05-21] MEDS: hydrALAZINE 20 MG/ML VIAL SLOW IVP PRN ×2 (01:22→05:07)
[2020-05-21] MEDS: Acetaminophen 500 MG TAB PO SCH ×3 (05:07→17:34)
[2020-05-21] MEDS: Oxazepam 10 MG CAP PO SCH ×2 (05:07→21:19)
[2020-05-21] MEDS: Senokot S 8.6-50 MG TAB PO SCH ×2 (09:13→21:20)
[2020-05-21] MEDS: Folic Acid 1 MG TAB PO SCH (09:14)
[2020-05-21] MEDS: Multivitamin W/ Minerals 1 TAB PO SCH (09:14)
[2020-05-21] MEDS: traMADol HCl 50 MG TAB PO SCH ×2 (09:14→21:14)
[2020-05-21] MEDS: Thiamine 100 MG TAB PO SCH (09:14)
[2020-05-21] MEDS: Polyethylene Glycol 3350 17 GM Packet PO SCH (09:15)
[2020-05-21] MEDS: Heparin 5,000 UNITS/ML VIAL SC SCH ×3 (09:15→21:20)
[2020-05-21] MEDS ORDERED: Furosemide 40 MG/4 ML VIAL SLOW IVP SCH (10:00)
--- NOTE | 2020-05-21 10:01 | RAD ---
PORTABLE CHEST: HISTORY: Hypertension and shortness of breath. COMPARISON: 05/18/2020 exam. FINDINGS: Heart size is enlarged. The diffuse mainly interstitial lung changes are similar to the previous exa m. In reviewing an older 05/16/2020 study, they appear more prominent than on that study. I think th at these changes have a chronic appearance, but the possibility that they are developing superimposed multifocal infiltrates should be considered. IMPRESSION: Slight overall increased prominence to the parenchymal lung markings as compared to the prior examina tion. I cannot exclude this being the presence of some multifocal pneumonia changes developing on a background of chronic lung change. POS: JUNIOR
--- NOTE | 2020-05-21 11:47 | PRG ---
DATE OF SERVICE: 05/21/2020 SUBJECTIVE: Hospital day #6, status post fall with right midshaft femur fracture status post ORIF. She has had trouble getting up. She is profoundly hypertensive, given 1 hydralazine overnight. Chest x-ray demonstrates vascular congestion. She is requiring 3-4 L of oxygen nasal cannula currently, otherwise she states that her pain is improved, feeling better, we are waiting on placement as she will need likely a swing bed. OBJECTIVE: VITAL SIGNS: Today, temperature is 99.1, blood pressure now 159/68, heart rate is 88, respiratory rate 18, 97% on 3 L, respiratory rate around 20. GENERAL: Obese 74-year-old female, nontoxic. HEENT: Normocephalic. LUNGS: She does have some mild crackles. No wheezes. Lung sounds in all wheeler. CARDIOVASCULAR: Regular rhythm. Strong pulses. SKIN: She does have dry lower extremities, flaking of the skin. ABDOMEN: Protuberant, soft. PELVIS: Stable. MUSCULOSKELETAL: She has warm extremities. PSYCHIATRIC: Normal mood and affect. NEUROLOGIC: Alert and oriented to person, place, time and event. I's and O's over the last 24 hours, she was 1870 in yesterday, 1550 out yesterday. Net positive of 320 mL. LABORATORY DATA: Her BMP was up ticking. There is none today to be reviewed. I ordered some chest x-ray that demonstrates vascular congestion. ASSESSMENT AND PLAN: 1. Status post ground level fall. 2. Status post open reduction internal fixation of the right distal femur. 3. Acute kidney injury is improving. 4. History of bilateral lower extremity venous stasis. 5. Congestive heart failure exacerbation, stable. 6. Rhabdomyolysis that is resolved. PLAN: 1. Continue supportive care. Encourage . 2. She is to work with PT and move better oxygenation. 3. We will give 40 mg of Lasix now. 4. IV fluids have been stopped. 5. Check labs this morning. 6. Work with Case Management for placement. 7. Updated the patient, the patient's son at the bedside and answered all questions. Job ID: [id number]
[2020-05-21] MEDS: Nicotine 14 MG PATCH TD SCH (17:38)
[2020-05-21 20:52] LABS: Anion Gap 15 mmol/L (10-20); BUN (Urea Nitrogen) 16 mg/dL (9.8-20.1); Calc. Creatinine Clearance 90 mL/min (70-130); Calcium 8.4 mg/dL (7.8-10.44); Carbon Dioxide 34 mmol/L (23-31); Chloride 96 mmol/L (98-107); Glucose 101 mg/dL (83-110); Magnesium 1.8 mg/dL (1.6-2.6); Phosphorus 1.1 mg/dL (2.3-4.7); Potassium 4.1 mmol/L (3.5-5.1); Sodium 141 mmol/L (136-145)
[2020-05-21] MEDS: Gabapentin 300 MG CAP PO SCH (21:14)
[2020-05-21] MEDS ORDERED: Sodium Phosphate 45 MMOL in Sodium Chloride 0.9% 250 ML 250 ML IVPB SCH (23:45)
[2020-05-22] MEDS: Acetaminophen 500 MG TAB PO SCH ×5 (00:36→23:26)
[2020-05-22 06:00] LABS: Anion Gap 14 mmol/L (10-20); BUN (Urea Nitrogen) 14 mg/dL (9.8-20.1); Calc. Creatinine Clearance 102 mL/min (70-130); Calcium 7.9 mg/dL (7.8-10.44); Carbon Dioxide 35 mmol/L (23-31); Chloride 95 mmol/L (98-107); Glucose 89 mg/dL (83-110); Magnesium 1.9 mg/dL (1.6-2.6); Phosphorus 4.3 mg/dL (2.3-4.7); Potassium 3.6 mmol/L (3.5-5.1); Sodium 140 mmol/L (136-145)
[2020-05-22] MEDS: Senokot S 8.6-50 MG TAB PO SCH ×2 (07:57→20:21)
[2020-05-22] MEDS: Folic Acid 1 MG TAB PO SCH (07:57)
[2020-05-22] MEDS: Oxazepam 10 MG CAP PO SCH ×2 (07:57→20:20)
[2020-05-22] MEDS: Thiamine 100 MG TAB PO SCH (07:58)
[2020-05-22] MEDS: Heparin 5,000 UNITS/ML VIAL SC SCH ×3 (07:58→20:20)
[2020-05-22] MEDS: Multivitamin W/ Minerals 1 TAB PO SCH (07:58)
[2020-05-22] MEDS: traMADol HCl 50 MG TAB PO SCH ×2 (07:58→20:20)
[2020-05-22] MEDS: Polyethylene Glycol 3350 17 GM Packet PO SCH (07:59)
[2020-05-22] MEDS: Amlodipine 5 MG TAB PO SCH (11:50)
--- NOTE | 2020-05-22 17:27 | PRG ---
DATE OF SERVICE: 05/22/2020 SUBJECTIVE: Ms. Garza is a 74-year-old female, ground level fall, right midshaft femur fracture, status post ORIF by Orthopedic surgery, history of alcoholism, appeared to be volume overloaded yesterday, was given 40 mg of Lasix, improved in her oxygenation and respiratory status. Her electrolytes have been replaced over the evening. She is down to 1 L/minute of oxygen. We are trying to wean this further now. She states that she feels much better. Of note, she is very remiss to get up and move at all, transferring. When I discussed with the PT mobile sales assistant, it is difficult and she says that she is in extreme pain. She does not want to walk; however, I feel that some of her hypoxemia is likely atelectasis given her lack of motivation to get out of bed. I have discussed this ad nauseam with her at the bedside. I have also encouraged we are going to swing her in a Brenda lift to a chair for her to be sitting up today. She is still only getting 500 on her IS. PHYSICAL EXAMINATION: VITAL SIGNS: Temperature is 98.7, blood pressure is 150/67, heart rate is 79, respiratory rate is 18, 93% now on room air as of 1150 hours today. GENERAL: A 74-year-old obese female, sitting up in slight pain. HEENT: Normocephalic, atraumatic. LUNGS: Shows mild crackles. No wheezes. Just diminished mostly in the lower from not taking deep breaths it appears. CARDIOVASCULAR: Regular rhythm. She has a strong pulses. ABDOMEN: Soft. It is somewhat protuberant. PELVIS: Stable. MUSCULOSKELETAL: Warm extremities. She does have the surgery site noted. She has good sensation in all of her extremities. NEUROLOGIC: GCS 15. PSYCHIATRIC: Normal mood and affect. LABORATORY DATA: From today, she has a sodium 140, potassium 3.6, chloride is 95, CO2 is 35, BUN of 14, creatinine 0.68, glucose is 89, calcium is 7.9, phos is 4.3, mag of 1.9. ASSESSMENT: 1. Status post ground level fall. 2. Status post open reduction and internal fixation of the right distal femur. 3. Acute kidney injury, improving. 4. History of bilateral lower extremity venous stasis. 5. Congestive heart failure exacerbation, which is stable. 6. Rhabdomyolysis. PLAN: 1. We will continue supportive care. 2. Again, we are going to swing her up to a chair today. 3. Encourage IS. 4. Needs to move more with PT. I feel like we will reduce many complications if she gets up and I have expressed this to her at the bedside multiple times. 5. We will continue pulmonary toilet. 6. Hold further Lasix at this time, but may need to give further. 7. I have noticed that her serum CO2 has increased. I am worried that she may be retaining at night and given her habitus, we will try some BiPAP overnight and see if she tolerates this and sleeps better, may be more motivated. 8. Recheck labs in the morning. 9. Working with Case Management for placement. She should be ready to go in the ensuing days. She will need aggressive rehab. Job ID: [id number]
[2020-05-22] MEDS: Nicotine 14 MG PATCH TD SCH (17:56)
[2020-05-22] MEDS: Gabapentin 300 MG CAP PO SCH (20:20)
[2020-05-22] MEDS: Cyclobenzaprine 10 MG TAB PO PRN (23:27)
[2020-05-23] MEDS: Acetaminophen 500 MG TAB PO SCH ×4 (05:44→23:59)
[2020-05-23 07:31] LABS: #Eosinphils 0.1 thou/uL (0.0-0.7); #Lymphocytes 1.2 thou/uL (1.20-3.40); #Monocytes 0.6 thou/uL (0.11-0.59); %Basophils 0.3 % (0.0-1.0); %Eosinophils 1.6 % (0.0-10.0); %Lymphocytes 17.1 % (21.0-51.0); %Monocytes 8.6 % (0.0-10.0); %Neutrophils 72.4 % (42.0-75.0); Hemoglobin 8.7 g/dL (12.0-16.0); Mean Corpuscular Hemoglobin 39.2 pg (27.0-31.0); Mean Platelet Volume 7.9 fL (7.4-10.4); Platelet Count 213 thou/uL (130-400); RBC Distribution Width 17.3 % (11.5-14.5); Red Blood Cell (RBC) Count 2.21 mill/uL (4.20-5.40); White Blood Cell (WBC) Count 6.9 thou/uL (4.8-10.8)
[2020-05-23 07:42] LABS: Anion Gap 15 mmol/L (10-20); Carbon Dioxide 34 mmol/L (23-31); Chloride 96 mmol/L (98-107); Potassium 3.6 mmol/L (3.5-5.1); Sodium 141 mmol/L (136-145)
[2020-05-23 08:01] LABS: Calc. Creatinine Clearance 142 mL/min (70-130)
[2020-05-23 08:06] LABS: BUN (Urea Nitrogen) 9 mg/dL (9.8-20.1); Glucose 84 mg/dL (83-110)
[2020-05-23 08:07] LABS: Calcium 7.9 mg/dL (7.8-10.44); Magnesium 1.9 mg/dL (1.6-2.6); Phosphorus 2.1 mg/dL (2.3-4.7)
[2020-05-23] MEDS: Oxazepam 10 MG CAP PO SCH ×2 (08:51→21:05)
[2020-05-23] MEDS: Amlodipine 5 MG TAB PO SCH (08:52)
[2020-05-23] MEDS: Heparin 5,000 UNITS/ML VIAL SC SCH ×3 (08:52→21:05)
[2020-05-23] MEDS: Folic Acid 1 MG TAB PO SCH (08:52)
[2020-05-23] MEDS: Thiamine 100 MG TAB PO SCH (08:53)
[2020-05-23] MEDS: Senokot S 8.6-50 MG TAB PO SCH ×2 (08:53→21:05)
[2020-05-23] MEDS: Polyethylene Glycol 3350 17 GM Packet PO SCH (08:53)
[2020-05-23] MEDS: Multivitamin W/ Minerals 1 TAB PO SCH (08:53)
[2020-05-23] MEDS: traMADol HCl 50 MG TAB PO SCH ×2 (08:54→21:04)
[2020-05-23] MEDS: Cyclobenzaprine 10 MG TAB PO PRN (15:57)
[2020-05-23] MEDS: traMADol HCl 50 MG TAB PO PRN (15:58)
[2020-05-23] MEDS: Nicotine 14 MG PATCH TD SCH (18:14)
[2020-05-23] MEDS: Gabapentin 300 MG CAP PO SCH (21:04)
[2020-05-23] MEDS ORDERED: Potassium Phosphate 30 MMOL in Sodium Chloride 0.9% 500 ML IVPB SCH (22:30)
[2020-05-24] MEDS: Acetaminophen 500 MG TAB PO SCH ×3 (05:21→18:17)
[2020-05-24 05:57] LABS: Magnesium 1.9 mg/dL (1.6-2.6); Phosphorus 3.4 mg/dL (2.3-4.7)
--- NOTE | 2020-05-24 06:28 | PRG ---
DATE OF SERVICE: 05/23/2020 SUBJECTIVE: Ms. Garza is a 74-year-old female patient recovering from a ground level fall, status right midshaft femur fracture, status post ORIF. The patient's BUN and creatinine have improved. LENNY resolved. Oxygenation status is improved with 1 L nasal cannula. The patient has been out of bed today, in chair. OBJECTIVE: VITAL SIGNS: Temperature 97.9, pulse 75, respiratory rate 18, O2 saturation 96%, blood pressure 152/70. GENERAL: The patient is sleeping, resting comfortably in bed. Nasal cannula in place. LUNGS: Wheezing improved. Diminished breath sounds bilaterally. CARDIOVASCULAR: Regular rate and rhythm ABDOMEN: Soft, nontender. MSK: Warm extremities. Sensation intact bilaterally. Strength 4/5. GCS 15. Skin abrasion lumbar spine pressure ulcer LABORATORY DATA: Hemoglobin 8.7, hematocrit 26.3, platelet of 213, white blood cell count 6.9. Chemistry; sodium 141, potassium is 3.6, chloride 96, CO2 of 34, BUN 9, creatinine 0.60, glucose 84, phosphorus 2.1, magnesium 1.9. IMAGING: No new imaging. ASSESSMENT: 1. Ground level fall. 2. Open reduction internal fixation right femur fracture. 3. Acute kidney injury, resolved. 4. Bilateral varicosities with venous stasis, improving. 5. Ulcers bilaterally. Wound Care managing. 6. Congestive heart failure exacerbation, stable. 7. Rhabdomyolysis, resolved. 8 Pressure ulcer PLAN: 1. Continue supportive care. 2. PT/OT. 3. DVT prophylaxis. 4. Incentive spirometry. 5. Continue pulmonary toilet. 6. Hold Lasix. 7. Working with Case Management for placement. Patient is medically cleared for discharge. She will need aggressive rehab due to deconditioning. 8.O2 goal 88-92% COPD Case discussed with Job ID: [id number] [facility]
[2020-05-24] MEDS: Folic Acid 1 MG TAB PO SCH (09:18)
[2020-05-24] MEDS: Thiamine 100 MG TAB PO SCH (09:18)
[2020-05-24] MEDS: Senokot S 8.6-50 MG TAB PO SCH ×2 (09:18→20:30)
[2020-05-24] MEDS: Oxazepam 10 MG CAP PO SCH ×2 (09:18→20:30)
[2020-05-24] MEDS: Multivitamin W/ Minerals 1 TAB PO SCH (09:18)
[2020-05-24] MEDS: Heparin 5,000 UNITS/ML VIAL SC SCH ×3 (09:26→20:30)
[2020-05-24] MEDS: Amlodipine 5 MG TAB PO SCH (09:26)
[2020-05-24] MEDS: traMADol HCl 50 MG TAB PO SCH ×2 (09:26→20:30)
[2020-05-24] MEDS: Polyethylene Glycol 3350 17 GM Packet PO SCH (09:26)
[2020-05-24] MEDS: Ondansetron PF 4 MG/2 ML Vial IVP PRN (12:23)
--- NOTE | 2020-05-24 13:41 | PDOC.GSPN ---
Surgery Progress Note: Subj - Subjective Narrative: Patient is a 74 F with a history of CHF, COPD admitted following ground level fall for which she sustained a right mid shaft femur fracture, POD#9 following ORIF of right femur. She is doing well this AM. Pain well controlled. She has been working with PT. Patient was placed on room air this AM. Surgery Progress Note: Obj - Vital signs Vital signs: Vital Signs - Most Recent Temp Pulse Resp BP Pulse Ox 98.5 F 75 18 160/74 H 97 05/24/20 11:38 05/24/20 11:38 05/24/20 11:38 05/24/20 11:38 05/24/20 11:38 - Physical Exam General: no distress Cardiovascular: regular rate and rhythm Respiratory: other (diminished breath sounds bilaterally, no wheezing on auscultation) Abdomen: soft, non tender Psychiatric: speech is normal Additional exam: Neuro: GCS 15 Surgery Progress Note: Results - Labs Result Diagrams: 05/23/20 06:52 05/23/20 06:52 Lab results: Laboratory Results - last 12 hr 05/24/20 05:30 Phosphorus 3.4 Magnesium 1.9 Surgery Progress Note: A/P - Plan Plan: Patient is a 74 F with a history of CHF, COPD admitted following ground level fall for which she sustained a right mid shaft femur fracture, POD#9 following ORIF of right femur. LENNY, rhabdomyolysis resolved. Bilateral venous stasis. Wound care managing bilateral pressure ulcers. Pressure ulcer noted on gluteal region on 05/23. Continue PT. Encourage up in chair Encourage IS, coughing Pending approval to [facility] Patient seen and evaluated with Dr. Barber. Addendum - Attending - Attending Attestation Date/Time: 05/26/20 8100 I personally evaluated the patient and discussed the management with . [] I agree with the History, Examination, Assessment and Plan documented above with any addition or exceptions noted below.
[2020-05-24] MEDS: Nicotine 14 MG PATCH TD SCH (18:17)
[2020-05-24] MEDS: Gabapentin 300 MG CAP PO SCH (20:29)
--- NOTE | 2020-05-25 00:53 | PRG ---
DATE OF SERVICE: 05/24/2020 SUBJECTIVE: Patient was seen this evening during rounds. She was lying in bed, resting comfortably and asleep with no signs of acute distress. Nursing reports no acute events. The patient did get up out of bed and into the chair today. OBJECTIVE: VITAL SIGNS: Temperature 98.3, pulse 76, respirations 18, oxygen saturation 93% on 0.5 L nasal cannula, blood pressure 133/61. GENERAL: Well-appearing elderly female, lying in bed, resting comfortably and asleep with no signs of acute distress. ASSESSMENT: 1. Status post mechanical fall. 2. Right femur fracture, status post repair. 3. History of lower extremity cellulitis, chronic obstructive pulmonary disease, lower extremity neuropathy, psoriasis, congestive heart failure with diastolic dysfunction, and gastroesophageal reflux disease. 4. Acute kidney injury, resolved. PLAN: 1. Continue current diet and pain regimen. 2. Continue supportive care. 3. Continue physical and occupational therapy. 4. The patient is pending discharge to [facility]. 5. She is ready for discharge at this time. Job ID: [id number]
[2020-05-25] MEDS: Acetaminophen 500 MG TAB PO SCH ×3 (04:00→12:47)
[2020-05-25] MEDS: Polyethylene Glycol 3350 17 GM Packet PO SCH (08:46)
[2020-05-25] MEDS: Folic Acid 1 MG TAB PO SCH (08:46)
[2020-05-25] MEDS: Amlodipine 5 MG TAB PO SCH (08:46)
[2020-05-25] MEDS: Senokot S 8.6-50 MG TAB PO SCH (08:46)
[2020-05-25] MEDS: Thiamine 100 MG TAB PO SCH (08:46)
[2020-05-25] MEDS: Multivitamin W/ Minerals 1 TAB PO SCH (08:46)
[2020-05-25] MEDS: traMADol HCl 50 MG TAB PO SCH (08:47)
[2020-05-25] MEDS: Oxazepam 10 MG CAP PO SCH (08:47)
[2020-05-25] MEDS: Heparin 5,000 UNITS/ML VIAL SC SCH ×2 (08:47→15:43)
[2020-05-25 12:54] VITALS: BMI 38.9
[2020-05-25 14:50] VITALS: BP 127/59; TEMP 98.6
--- NOTE | 2020-05-26 07:38 | DIS ---
DATE OF ADMISSION: 05/15/2020 DATE OF DISCHARGE: 05/25/2020 Radiograph X-ray shows RT displaced spiral fracture, right distal femur fx. PROCEDURE PERFORMED: Interlocking intramedullary rodding of the right distal femur. BRIEF HOSPITAL COURSE: A 74-year-old female with past medical history of diastolic dysfunction, neuropathy, GERD, hypertension. Status post slip and fall, after she fell out of bed landing on right side. The patient lives at home alone and uses a walker to get around. The patient was brought to the OR on 05/15 for fixation of a displaced spiral fracture of right distal femur. Following surgery, the patient had difficulty breathing and BUN and creatinine increased. The patient was started on nebulizers. The patient was given a dose of Lasix. The patient also received 1 unit of blood with increased urine output. The patient's BUN and creatinine returned to normal on 05/21 at 16/0.77. The patient received X-ray to evaluate respiratory status. The patient received Lasix to improve volume status. The patient was started on Cipro, seven-day course, for a positive UA. The patient's mental status improved. PT worked with the patient daily. The patient was not fully cooperative with PT/OT. The patient was started on mechanical and chemical DVT prophylaxis following surgery. The patient was encouraged to use incentive spirometer daily. Speech evaluate the patient for difficultly and recommend puree diet. Case Management worked diligently to help with finding a rehab placement. OBJECTIVE: VITAL SIGNS: At the time of discharge, temperature 98.6, pulse 80, respiratory rate 16, O2 saturation 83, blood pressure 127/59. GENERAL: The patient is in no acute distress, off oxygen, saturating 88% to 92%. CARDIAC: Regular rate and rhythm. LUNGS: Equal breath sounds bilaterally. No acute distress. No accessory muscle use. ABDOMEN: Protuberant, nontender to palpation. No rebound or guarding. EXTREMITIES: The patient is moving bilateral extremities. The patient has venous stasis disease, right and left ulcer resolved at the time of discharge. IMAGING STUDIES: At the time of discharge, no new imaging. ASSESSMENT: 1. Ground level fall. 2. Open reduction and internal fixation, right femur fracture. 3. Acute kidney injury, resolved. 4. Bilateral varicosities and venous stasis, improving. 5. Ulcers bilaterally, Wound Care managing, resolved at discharge. 6. Congestive heart failure-patient is stable. 7. Rhabdo, resolved. 8. Pressure ulcers, resolved. PLAN: Follow up with Orthopedics in two weeks. Call to make appointment. Continue current pain management. Continue physical therapy, OT and rehab. Discontinue DVT prophylaxis. Time spent 30 minutes Job ID: [id number] [id number]
== END 2020-05-25 18:00 | DRG 480 ==
LOC: ERS 04:04 → SURG A 05:59
PROVIDERS: ADMIT Surgery; ATTEND Surgery
PROC: 0QSB06Z Reposition Right Lower Femur with Intramedullary Internal Fixation Device, Open Approach (ICD-10-PCS; principal; 2020-05-15)
DX: S72.401A Unspecified fracture of lower end of right femur, initial encounter for closed fracture (principal); I50.33 Acute on chronic diastolic (congestive) heart failure; L03.116 Cellulitis of left lower limb; L03.115 Cellulitis of right lower limb; N17.9 Acute kidney failure, unspecified; E27.40 Unspecified adrenocortical insufficiency; M62.82 Rhabdomyolysis; G62.9 Polyneuropathy, unspecified; K21.9 Gastro-esophageal reflux disease without esophagitis; L89.899 Pressure ulcer of other site, unspecified stage; R13.10 Dysphagia, unspecified; I87.8 Other specified disorders of veins; E87.6 Hypokalemia; D69.6 Thrombocytopenia, unspecified; L40.9 Psoriasis, unspecified; I11.0 Hypertensive heart disease with heart failure; J44.9 Chronic obstructive pulmonary disease, unspecified; F17.210 Nicotine dependence, cigarettes, uncomplicated; Z88.6 Allergy status to analgesic agent; Z79.1 Long term (current) use of non-steroidal anti-inflammatories (NSAID); Z79.899 Other long term (current) drug therapy; Z80.3 Family history of malignant neoplasm of breast; Z82.49 Family history of ischemic heart disease and other diseases of the circulatory system; Z20.822 Contact with and (suspected) exposure to COVID-19
CPT/HCPCS: 36415; 36430; 71045; 74230; 76000; 80048; 81001; 82533; 82550; 83735; 83880; 84100; 85025; 85027; 86850; 86900; 86901; 87086; 87635; 93306; 94640; 96374; 96375; 96376; C1713; G0390; J0360; J0690; J0696; J1644; J1720; J1885; J1940; J2270; J2405; J2550; J3010; J3475; J3480; J3490; J7030; J7042; J7050; J7070; J7620; P9016; P9045; U0003; U0005

== ENCOUNTER 2020-06-21 17:40 | Inpatient (IN) | payer MEDICARE ==
[2020-06-21] MEDS ORDERED: Ketorolac Tromethamine 30 MG/ML VIAL ONE (18:16)
[2020-06-21] MEDS ORDERED: Morphine 4 MG/ML VIAL ONE (18:16)
[2020-06-21 18:51] LABS: #Eosinphils 0.2 thou/uL (0.0-0.7); #Lymphocytes 1.1 thou/uL (1.20-3.40); #Monocytes 0.6 thou/uL (0.11-0.59); #Neutrophils 6.7 thou/uL (1.40-6.50); %Basophils 0.5 % (0.0-1.0); %Eosinophils 2.3 % (0.0-10.0); %Lymphocytes 12.8 % (21.0-51.0); %Neutrophils 77.3 % (42.0-75.0); Hemoglobin 14.6 g/dL (12.0-16.0); Mean Corpuscular HGB CONC 32.9 g/dL (32.0-36.0); Mean Corpuscular Hemoglobin 36.5 pg (27.0-31.0); Platelet Count 202 thou/uL (130-400); RBC Distribution Width 14.1 % (11.5-14.5); Red Blood Cell (RBC) Count 3.98 mill/uL (4.20-5.40); White Blood Cell (WBC) Count 8.7 thou/uL (4.8-10.8)
[2020-06-21 19:11] LABS: ALT (SGPT) 12 U/L (8-55); AST (SGOT) 19 U/L (5-34); Alkaline Phosphatase 144 U/L (40-110); Anion Gap 16 mmol/L (10-20); BUN (Urea Nitrogen) 10 mg/dL (9.8-20.1); Bilirubin, Total 0.4 mg/dL (0.2-1.2); Calc. Creatinine Clearance 0 mL/min (70-130); Calcium 9.2 mg/dL (7.8-10.44); Carbon Dioxide 26 mmol/L (23-31); Chloride 96 mmol/L (98-107); Globulin 3.8 g/dL (2.4-3.5); Glucose 89 mg/dL (83-110); Potassium 3.5 mmol/L (3.5-5.1); Protein, Total 7.8 g/dL (5.8-8.1); Sodium 134 mmol/L (136-145)
[2020-06-21 21:38] LABS: Lactic Acid 2.9 mmol/L (0.5-2.2)
[2020-06-21] MEDS ORDERED: Lactated Ringer's 1,000 ML IV SCH (22:00)
[2020-06-21] MEDS ORDERED: Acetaminophen 325 MG TAB ONE (22:55)
[2020-06-21] MEDS ORDERED: Ondansetron ODT 4 MG TAB ONE (22:55)
[2020-06-21] MEDS: Nicotine 21 MG PATCH TD SCH (23:02)
[2020-06-21] MEDS: Acetaminophen 325 MG TAB PO PRN (23:02)
[2020-06-21] MEDS: Ondansetron ODT 4 MG TAB PO PRN (23:03)
[2020-06-22] MEDS ORDERED: Acetaminophen 325 MG TAB ONE ×2 (02:56→13:53)
[2020-06-22] MEDS: Acetaminophen 325 MG TAB PO PRN ×2 (03:04→13:57)
[2020-06-22 03:39] VITALS: BMI 36.8
[2020-06-22] MEDS ORDERED: Lactated Ringer's 1,000 ML IV SCH (04:15)
[2020-06-22 04:35] LABS: #Basophils 0.1 thou/uL (0.0-0.2); #Eosinphils 0.3 thou/uL (0.0-0.7); #Lymphocytes 1.3 thou/uL (1.20-3.40); #Monocytes 0.8 thou/uL (0.11-0.59); #Neutrophils 3.9 thou/uL (1.40-6.50); %Basophils 0.8 % (0.0-1.0); %Eosinophils 4.3 % (0.0-10.0); %Lymphocytes 20.8 % (21.0-51.0); %Monocytes 12.2 % (0.0-10.0); %Neutrophils 61.8 % (42.0-75.0); Hemoglobin 12.5 g/dL (12.0-16.0); Mean Corpuscular HGB CONC 32.9 g/dL (32.0-36.0); Mean Corpuscular Hemoglobin 36.9 pg (27.0-31.0); Platelet Count 167 thou/uL (130-400); Red Blood Cell (RBC) Count 3.38 mill/uL (4.20-5.40); White Blood Cell (WBC) Count 6.4 thou/uL (4.8-10.8)
[2020-06-22 04:56] LABS: ALT (SGPT) 11 U/L (8-55); AST (SGOT) 13 U/L (5-34); Albumin 3.1 g/dL (3.4-4.8); Alkaline Phosphatase 120 U/L (40-110); Anion Gap 13 mmol/L (10-20); BUN (Urea Nitrogen) 11 mg/dL (9.8-20.1); Bilirubin, Total 0.5 mg/dL (0.2-1.2); Calc. Creatinine Clearance 98 mL/min (70-130); Calcium 8.1 mg/dL (7.8-10.44); Carbon Dioxide 25 mmol/L (23-31); Chloride 101 mmol/L (98-107); Globulin 3.2 g/dL (2.4-3.5); Glucose 97 mg/dL (83-110); Potassium 3.9 mmol/L (3.5-5.1); Protein, Total 6.3 g/dL (5.8-8.1); Sodium 135 mmol/L (136-145)
[2020-06-22 05:36] LABS: SARS-CoV-2 PCR by NAA Not Detected (NotDetected)
[2020-06-22] MEDS ORDERED: Atorvastatin Calcium 40 MG TAB PO SCH (09:00)
[2020-06-22] MEDS ORDERED: Gabapentin 300 MG CAP PO SCH (09:00)
[2020-06-22] MEDS ORDERED: Montelukast Sodium 10 mg Tablet PO SCH (09:00)
[2020-06-22] MEDS ORDERED: Enoxaparin Sodium 40 MG/0.4 ML SYRINGE ONE (09:52)
[2020-06-22] MEDS: Enoxaparin Sodium 40 MG/0.4 ML SYRINGE SC SCH (09:55)
[2020-06-22] MEDS: Gabapentin 300 MG CAP PO SCH ×3 (10:36→20:59)
[2020-06-22] MEDS ORDERED: traMADol HCl 50 MG TAB ONE (15:27)
[2020-06-22] MEDS: traMADol HCl 50 MG TAB PO PRN ×2 (15:28→21:03)
[2020-06-22] MEDS: Nicotine 21 MG PATCH TD SCH (21:00)
[2020-06-22] MEDS ORDERED: Mirtazapine 15 MG Soltab PO SCH (21:00)
[2020-06-23] MEDS: Acetaminophen 325 MG TAB PO PRN (00:41)
[2020-06-23] MEDS: traMADol HCl 50 MG TAB PO PRN ×3 (06:13→20:38)
[2020-06-23 06:35] LABS: #Eosinphils 0.2 thou/uL (0.0-0.7); #Monocytes 0.6 thou/uL (0.11-0.59); #Neutrophils 4.1 thou/uL (1.40-6.50); %Basophils 0.2 % (0.0-1.0); %Eosinophils 3.6 % (0.0-10.0); %Lymphocytes 16.9 % (21.0-51.0); %Monocytes 9.8 % (0.0-10.0); %Neutrophils 69.6 % (42.0-75.0); Hemoglobin 11.7 g/dL (12.0-16.0); Mean Corpuscular HGB CONC 33.1 g/dL (32.0-36.0); Mean Corpuscular Hemoglobin 37.2 pg (27.0-31.0); Mean Platelet Volume 8.3 fL (7.4-10.4); Platelet Count 165 thou/uL (130-400); RBC Distribution Width 13.9 % (11.5-14.5); Red Blood Cell (RBC) Count 3.13 mill/uL (4.20-5.40); White Blood Cell (WBC) Count 5.9 thou/uL (4.8-10.8)
[2020-06-23 06:53] LABS: ALT (SGPT) 7 U/L (8-55); AST (SGOT) 16 U/L (5-34); Albumin 2.9 g/dL (3.4-4.8); Alkaline Phosphatase 108 U/L (40-110); Anion Gap 11 mmol/L (10-20); BUN (Urea Nitrogen) 9 mg/dL (9.8-20.1); Bilirubin, Total 0.5 mg/dL (0.2-1.2); Calc. Creatinine Clearance 113 mL/min (70-130); Calcium 8.4 mg/dL (7.8-10.44); Carbon Dioxide 28 mmol/L (23-31); Chloride 104 mmol/L (98-107); Globulin 3.2 g/dL (2.4-3.5); Glucose 89 mg/dL (83-110); Potassium 4.3 mmol/L (3.5-5.1); Protein, Total 6.1 g/dL (5.8-8.1); Sodium 139 mmol/L (136-145)
[2020-06-23] MEDS ORDERED: Acetaminophen 325 MG TAB PO PRN (08:04)
[2020-06-23] MEDS: Gabapentin 300 MG CAP PO SCH ×5 (09:07→20:36)
[2020-06-23] MEDS: Enoxaparin Sodium 40 MG/0.4 ML SYRINGE SC SCH (09:09)
[2020-06-23] MEDS: Melatonin 3 MG TAB PO PRN (22:22)
[2020-06-23] MEDS: Nicotine 21 MG PATCH TD SCH (22:22)
[2020-06-24] MEDS: Gabapentin 300 MG CAP PO SCH ×3 (08:31→21:01)
[2020-06-24] MEDS: Folic Acid 1 MG TAB PO SCH (08:31)
[2020-06-24] MEDS: Enoxaparin Sodium 40 MG/0.4 ML SYRINGE SC SCH (08:32)
[2020-06-24] MEDS: traMADol HCl 50 MG TAB PO PRN ×3 (08:35→21:01)
[2020-06-24] MEDS: Melatonin 3 MG TAB PO PRN (21:01)
[2020-06-24] MEDS: Nicotine 21 MG PATCH TD SCH (21:02)
[2020-06-25] MEDS: Folic Acid 1 MG TAB PO SCH (08:53)
[2020-06-25] MEDS: Gabapentin 300 MG CAP PO SCH ×3 (08:54→21:08)
[2020-06-25] MEDS: Enoxaparin Sodium 40 MG/0.4 ML SYRINGE SC SCH (08:54)
[2020-06-25] MEDS: traMADol HCl 50 MG TAB PO PRN ×2 (16:00→21:55)
[2020-06-25] MEDS: Melatonin 3 MG TAB PO PRN (21:09)
[2020-06-25] MEDS: Nicotine 21 MG PATCH TD SCH (21:10)
[2020-06-25] MEDS: Ondansetron ODT 4 MG TAB PO PRN (23:28)
[2020-06-26] MEDS: Acetaminophen 500 MG TAB PO PRN (01:31)
[2020-06-26] MEDS: Gabapentin 300 MG CAP PO SCH ×4 (09:39→21:21)
[2020-06-26] MEDS: Enoxaparin Sodium 40 MG/0.4 ML SYRINGE SC SCH (09:40)
[2020-06-26] MEDS: Folic Acid 1 MG TAB PO SCH (09:40)
[2020-06-26] MEDS: traMADol HCl 50 MG TAB PO PRN ×2 (09:41→18:26)
[2020-06-26] MEDS ORDERED: diphenhydrAMINE 25 MG CAP PO PRN (09:54)
[2020-06-26] MEDS: Melatonin 3 MG TAB PO PRN (21:21)
[2020-06-26] MEDS: Nicotine 21 MG PATCH TD SCH (21:23)
[2020-06-26] MEDS: Ondansetron ODT 4 MG TAB PO PRN (23:19)
[2020-06-27 02:23] LABS: Troponin I 0.032 ng/mL (< 0.028)
[2020-06-27 05:14] LABS: Troponin I 0.053 ng/mL (< 0.028)
[2020-06-27] MEDS: Folic Acid 1 MG TAB PO SCH (08:10)
[2020-06-27] MEDS: Enoxaparin Sodium 40 MG/0.4 ML SYRINGE SC SCH (08:10)
[2020-06-27] MEDS: Gabapentin 300 MG CAP PO SCH ×3 (08:10→21:13)
[2020-06-27] MEDS ORDERED: Iopamidol-370 76% 500 ML 1 ML ONE (09:49)
[2020-06-27 13:03] LABS: #Basophils 0.1 thou/uL (0.0-0.2); #Eosinphils 0.3 thou/uL (0.0-0.7); #Monocytes 0.5 thou/uL (0.11-0.59); %Basophils 0.8 % (0.0-1.0); %Eosinophils 4.1 % (0.0-10.0); %Lymphocytes 15.1 % (21.0-51.0); %Monocytes 7.2 % (0.0-10.0); %Neutrophils 72.9 % (42.0-75.0); Hemoglobin 13.6 g/dL (12.0-16.0); Mean Corpuscular HGB CONC 32.5 g/dL (32.0-36.0); Mean Corpuscular Hemoglobin 36.8 pg (27.0-31.0); Mean Platelet Volume 7.4 fL (7.4-10.4); Platelet Count 208 thou/uL (130-400); RBC Distribution Width 13.8 % (11.5-14.5); White Blood Cell (WBC) Count 6.9 thou/uL (4.8-10.8)
[2020-06-27 13:17] LABS: ALT (SGPT) 7 U/L (8-55); AST (SGOT) 12 U/L (5-34); Albumin 3.4 g/dL (3.4-4.8); Alkaline Phosphatase 116 U/L (40-110); Anion Gap 13 mmol/L (10-20); BUN (Urea Nitrogen) 8 mg/dL (9.8-20.1); Bilirubin, Total 0.2 mg/dL (0.2-1.2); Calc. Creatinine Clearance 93 mL/min (70-130); Calcium 8.7 mg/dL (7.8-10.44); Carbon Dioxide 36 mmol/L (23-31); Chloride 94 mmol/L (98-107); Globulin 3.9 g/dL (2.4-3.5); Glucose 105 mg/dL (83-110); Potassium 4.5 mmol/L (3.5-5.1); Protein, Total 7.3 g/dL (5.8-8.1); Sodium 138 mmol/L (136-145)
[2020-06-27 13:40] LABS: CKMB 0.9 ng/mL (0-6.6)
[2020-06-27 17:25] LABS: Troponin I 0.042 ng/mL (< 0.028)
[2020-06-27] MEDS: traMADol HCl 50 MG TAB PO PRN (17:46)
[2020-06-27] MEDS: hydrOXYzine 25 MG TAB PO PRN (21:14)
[2020-06-27] MEDS: Nicotine 21 MG PATCH TD SCH (21:14)
[2020-06-28] MEDS: Folic Acid 1 MG TAB PO SCH (08:07)
[2020-06-28] MEDS: Enoxaparin Sodium 40 MG/0.4 ML SYRINGE SC SCH (08:07)
[2020-06-28] MEDS: Gabapentin 300 MG CAP PO SCH ×3 (08:08→21:02)
[2020-06-28] MEDS: Lisinopril 10 MG TAB PO SCH (08:40)
[2020-06-28 10:22] LABS: BUN (Urea Nitrogen) 8 mg/dL (9.8-20.1); Calc. Creatinine Clearance 97 mL/min (70-130); Calcium 8.5 mg/dL (7.8-10.44); Glucose 94 mg/dL (83-110)
[2020-06-28 10:31] LABS: Anion Gap 15 mmol/L (10-20); Carbon Dioxide 33 mmol/L (23-31); Chloride 96 mmol/L (98-107); Potassium 4.2 mmol/L (3.5-5.1); Sodium 140 mmol/L (136-145)
[2020-06-28] MEDS: Acetaminophen 500 MG TAB PO PRN (11:03)
[2020-06-28] MEDS: Nicotine 21 MG PATCH TD SCH (21:06)
[2020-06-28] MEDS: Ibuprofen 200 MG TAB PO PRN (22:26)
[2020-06-28] MEDS: Melatonin 3 MG TAB PO PRN (22:27)
[2020-06-29] MEDS: hydrOXYzine 25 MG TAB PO PRN (01:51)
[2020-06-29] MEDS: Ibuprofen 200 MG TAB PO PRN (06:41)
[2020-06-29] MEDS: Lisinopril 10 MG TAB PO SCH (08:04)
[2020-06-29] MEDS: Folic Acid 1 MG TAB PO SCH (08:04)
[2020-06-29] MEDS: Gabapentin 300 MG CAP PO SCH ×3 (08:04→20:17)
[2020-06-29] MEDS: Enoxaparin Sodium 40 MG/0.4 ML SYRINGE SC SCH (08:05)
[2020-06-29] MEDS: Diclofenac 1% 100 GM GEL TP SCH ×4 (10:33→20:16)
[2020-06-29] MEDS ORDERED: Lisinopril 10 MG TAB PO SCH (15:52)
[2020-06-29] MEDS ORDERED: hydrALAZINE 20 MG/ML VIAL SLOW IVP PRN (15:53)
[2020-06-29] MEDS: Nicotine 21 MG PATCH TD SCH (20:20)
[2020-06-29] MEDS: Melatonin 3 MG TAB PO PRN (20:48)
[2020-06-30] MEDS: Ibuprofen 200 MG TAB PO PRN ×2 (02:45→11:20)
[2020-06-30 06:01] LABS: Anion Gap 9 mmol/L (10-20); BUN (Urea Nitrogen) 12 mg/dL (9.8-20.1); Calc. Creatinine Clearance 93 mL/min (70-130); Carbon Dioxide 34 mmol/L (23-31); Chloride 99 mmol/L (98-107); Glucose 104 mg/dL (83-110); Potassium 4.3 mmol/L (3.5-5.1); Sodium 138 mmol/L (136-145)
[2020-06-30] MEDS: Gabapentin 300 MG CAP PO SCH ×2 (08:00→15:32)
[2020-06-30] MEDS: Folic Acid 1 MG TAB PO SCH (08:00)
[2020-06-30] MEDS: Diclofenac 1% 100 GM GEL TP SCH ×3 (08:01→16:25)
[2020-06-30] MEDS: Enoxaparin Sodium 40 MG/0.4 ML SYRINGE SC SCH (08:02)
[2020-06-30] MEDS ORDERED: Lisinopril 20 MG TAB PO SCH (09:00)
[2020-06-30 09:14] LABS: #Basophils 0.1 thou/uL (0.0-0.2); #Eosinphils 0.3 thou/uL (0.0-0.7); #Lymphocytes 1.1 thou/uL (1.20-3.40); #Monocytes 0.4 thou/uL (0.11-0.59); #Neutrophils 3.8 thou/uL (1.40-6.50); %Basophils 1.2 % (0.0-1.0); %Eosinophils 4.9 % (0.0-10.0); %Lymphocytes 19.7 % (21.0-51.0); %Monocytes 7.5 % (0.0-10.0); %Neutrophils 66.7 % (42.0-75.0); Hemoglobin 13.8 g/dL (12.0-16.0); Mean Corpuscular HGB CONC 32.3 g/dL (32.0-36.0); Mean Corpuscular Hemoglobin 36.4 pg (27.0-31.0); Mean Platelet Volume 7.4 fL (7.4-10.4); Platelet Count 265 thou/uL (130-400); RBC Distribution Width 13.7 % (11.5-14.5); Red Blood Cell (RBC) Count 3.79 mill/uL (4.20-5.40); White Blood Cell (WBC) Count 5.7 thou/uL (4.8-10.8)
[2020-06-30 11:39] VITALS: TEMP 98
[2020-06-30 16:05] VITALS: BP 159/74
== END 2020-06-30 17:07 | disposition home health service (06) | DRG 553 ==
LOC: ERS 17:40 → ERHOLD 20:38 → T4-B 06-22 17:58
PROVIDERS: ADMIT Emergency Medicine; ATTEND Family Medicine
DX: M17.11 Unilateral primary osteoarthritis, right knee (principal); J96.01 Acute respiratory failure with hypoxia; I50.42 Chronic combined systolic (congestive) and diastolic (congestive) heart failure; Z20.822 Contact with and (suspected) exposure to COVID-19; I13.0 Hypertensive heart and chronic kidney disease with heart failure and stage 1 through stage 4 chronic kidney disease, or unspecified chronic kidney disease; L40.9 Psoriasis, unspecified; G62.9 Polyneuropathy, unspecified; F41.9 Anxiety disorder, unspecified; F32.9 Major depressive disorder, single episode, unspecified; F17.210 Nicotine dependence, cigarettes, uncomplicated; K21.9 Gastro-esophageal reflux disease without esophagitis; N18.30 Chronic kidney disease, stage 3 unspecified; F10.10 Alcohol abuse, uncomplicated; M10.9 Gout, unspecified; E66.9 Obesity, unspecified; G47.00 Insomnia, unspecified; G47.33 Obstructive sleep apnea (adult) (pediatric); R62.7 Adult failure to thrive; L89.152 Pressure ulcer of sacral region, stage 2; Z79.899 Other long term (current) drug therapy; Z88.5 Allergy status to narcotic agent; I69.398 Other sequelae of cerebral infarction; Z68.36 Body mass index [BMI] 36.0-36.9, adult; S72.91XD Unspecified fracture of right femur, subsequent encounter for closed fracture with routine healing
CPT/HCPCS: 36415; 36416; 51701; 71045; 71275; 80048; 80053; 82553; 82607; 82746; 83605; 84145; 84484; 85025; 85379; 85652; 86140; 87040; 87635; 93005; 93010; 96374; 96375; J1650; J1885; J2270; Q0162; Q0163; Q9967; U0003; U0005

== ENCOUNTER 2021-04-15 14:34 | Inpatient (IN) | payer MEDICARE ==
[2021-04-15 16:02] LABS: #Lymphocytes 1.3 thou/uL (1.20-3.40); #Monocytes 0.4 thou/uL (0.11-0.59); #Neutrophils 2.3 thou/uL (1.40-6.50); %Basophils 0.9 % (0.0-1.0); %Eosinophils 1.1 % (0.0-10.0); %Lymphocytes 31.9 % (21.0-51.0); %Monocytes 9.9 % (0.0-10.0); %Neutrophils 56.2 % (42.0-75.0); Hemoglobin 7.8 g/dL (12.0-16.0); Mean Corpuscular HGB CONC 32.7 g/dL (32.0-36.0); Mean Corpuscular Hemoglobin 32.1 pg (27.0-31.0); Mean Corpuscular Volume 98.5 fL (78.0-98.0); Mean Platelet Volume 6.9 fL (7.4-10.4); Platelet Count 264 thou/uL (130-400); RBC Distribution Width 13.8 % (11.5-14.5); Red Blood Cell (RBC) Count 2.41 mill/uL (4.20-5.40); White Blood Cell (WBC) Count 4.2 thou/uL (4.8-10.8)
[2021-04-15] MEDS ORDERED: Acetaminophen 325 MG TAB ONE (16:05)
[2021-04-15 16:25] LABS: ALT (SGPT) Less than 7 U/L (8-55); AST (SGOT) 21 U/L (5-34); Albumin 2.8 g/dL (3.4-4.8); Alkaline Phosphatase 114 U/L (40-110); Anion Gap 17 mmol/L (10-20); BUN (Urea Nitrogen) 7 mg/dL (9.8-20.1); Bilirubin, Total 0.4 mg/dL (0.2-1.2); CRP (Inflammatory) 1.78 mg/dL (= or < 0.5); Calc. Creatinine Clearance 0 mL/min (70-130); Calcium 8.4 mg/dL (7.8-10.44); Carbon Dioxide 29 mmol/L (23-31); Chloride 89 mmol/L (98-107); Globulin 3.6 g/dL (2.4-3.5); Glucose 85 mg/dL (83-110); Magnesium 1.4 mg/dL (1.6-2.6); Protein, Total 6.4 g/dL (5.8-8.1); Sodium 132 mmol/L (136-145)
[2021-04-15 16:31] LABS: Potassium 2.8 mmol/L (3.5-5.1)
[2021-04-15 17:13] LABS: CK (CPK) 9 U/L (29-168); Lipase 8 U/L (8-78)
[2021-04-15] MEDS ORDERED: Vancomycin 1 GM/200 ML BAG ONE (18:29)
[2021-04-15] MEDS ORDERED: cefTRIAXone\\ROCEPHIN 2 GM VIAL ONE (18:29)
[2021-04-15 18:31] LABS: Bilirubin Negative (Negative); Blood, Urine Negative (Negative); Glucose, Urine (Dipstick) Negative (Negative); Ketone, Urine Negative (Negative); Leukocyte Negative (Negative); Nitrite Negative (Negative); Protein, Urine (Dipstick) Negative (Neg-Trace); Urobilinogen 0.2 mg/dL (Less than 2)
[2021-04-15 18:35] LABS: Clarity Clear (Clear); Specific Gravity, Urine 1.007 (1.002-1.036)
[2021-04-15 19:02] LABS: Lactic Acid 2.3 mmol/L (0.5-2.2)
[2021-04-15] MEDS ORDERED: Ondansetron PF 4 MG/2 ML Vial IVP PRN (20:00)
[2021-04-15] MEDS ORDERED: Sodium Chloride 0.9% 1,000 ML IV SCH (20:00)
[2021-04-15] MEDS ORDERED: Ondansetron ODT 4 MG TAB SL PRN (20:00)
[2021-04-15] MEDS ORDERED: Vancomycin 1 GM in Premix Bag 1 BAG IVPB SCH (20:15)
[2021-04-15 20:17] LABS: SARS-CoV-2 NAA Rapid Test Not Detected (NotDetected)
[2021-04-15] MEDS ORDERED: Potassium Chloride 20 MEQ TAB ONE (20:27)
[2021-04-15] MEDS ORDERED: Morphine 4 MG/ML VIAL ONE (20:27)
[2021-04-15] MEDS ORDERED: Ondansetron PF 4 MG/2 ML Vial ONE (20:38)
[2021-04-15] MEDS ORDERED: Magnesium Oxide 400 MG TAB PO SCH (21:00)
[2021-04-15] MEDS ORDERED: Magnesium 2 GM/50 ML 2 GM in Premix Bag 1 BAG IVPB SCH (21:15)
[2021-04-15 21:45] LABS: Iron 161 ug/dL (50-170); Iron Binding Capacity, Total 154 mcg/dL (265-497)
[2021-04-15 21:57] LABS: Phosphorus 1.8 mg/dL (2.3-4.7)
[2021-04-15] MEDS ORDERED: Lisinopril 20 MG TAB PO SCH (22:00)
[2021-04-15] MEDS ORDERED: Gabapentin 300 MG CAP PO SCH (22:15)
[2021-04-15 22:20] LABS: Amphetamine Not Detected (NotDetected); Barbiturates Screen Not Detected (NotDetected); Benzodiazepine Screen Not Detected (NotDetected); Cocaine Metabolite Screen Not Detected (NotDetected); Methadone Not Detected (NotDetected); Methamphetamine Not Detected (NotDetected); Opiate Screen Not Detected (NotDetected); Oxycodone Screen Not Detected (NotDetected); Phencyclidine (PCP) Not Detected (NotDetected); THC/Cannabinoid Screen Detected (NotDetected); Tricyclic Screen Not Detected (NotDetected)
[2021-04-15] MEDS: Folic Acid 1 MG TAB PO SCH (23:29)
[2021-04-15] MEDS: Lactated Ringer's 1,000 ML IV SCH (23:29)
[2021-04-15] MEDS: Enoxaparin Sodium 40 MG/0.4 ML SYRINGE SC SCH (23:29)
[2021-04-15] MEDS ORDERED: Potassium Chloride 20 MEQ TAB PO SCH (23:30)
[2021-04-15] MEDS: Nicotine 21 MG PATCH TD SCH (23:30)
[2021-04-16] MEDS ORDERED: Potassium Phosphate 9 MMOL in Sodium Chloride 0.9% 100 ML IVPB SCH (01:00)
[2021-04-16 06:44] LABS: Lactic Acid 1.5 mmol/L (0.5-2.2)
[2021-04-16 06:46] LABS: #Lymphocytes 0.9 thou/uL (1.20-3.40); #Monocytes 0.3 thou/uL (0.11-0.59); #Neutrophils 3.3 thou/uL (1.40-6.50); %Basophils 0.8 % (0.0-1.0); %Eosinophils 0.9 % (0.0-10.0); %Lymphocytes 19.5 % (21.0-51.0); %Monocytes 6.6 % (0.0-10.0); %Neutrophils 72.2 % (42.0-75.0); Hemoglobin 6.7 g/dL (12.0-16.0); Mean Corpuscular HGB CONC 31.7 g/dL (32.0-36.0); Mean Corpuscular Hemoglobin 31.7 pg (27.0-31.0); Mean Corpuscular Volume 99.9 fL (78.0-98.0); Mean Platelet Volume 6.7 fL (7.4-10.4); Platelet Count 228 thou/uL (130-400); RBC Distribution Width 13.8 % (11.5-14.5); Red Blood Cell (RBC) Count 2.13 mill/uL (4.20-5.40); White Blood Cell (WBC) Count 4.5 thou/uL (4.8-10.8)
[2021-04-16 06:49] LABS: ALT (SGPT) Less than 7 U/L (8-55); AST (SGOT) 29 U/L (5-34); Albumin 2.3 g/dL (3.4-4.8); Alkaline Phosphatase 96 U/L (40-110); Anion Gap 14 mmol/L (10-20); BUN (Urea Nitrogen) 7 mg/dL (9.8-20.1); Bilirubin, Total 0.4 mg/dL (0.2-1.2); Calc. Creatinine Clearance 90 mL/min (70-130); Calcium 7.4 mg/dL (7.8-10.44); Carbon Dioxide 26 mmol/L (23-31); Chloride 96 mmol/L (98-107); Glucose 95 mg/dL (83-110); Magnesium 1.9 mg/dL (1.6-2.6); Potassium 3.4 mmol/L (3.5-5.1); Protein, Total 5.3 g/dL (5.8-8.1); Sodium 133 mmol/L (136-145)
[2021-04-16] MEDS: Lactated Ringer's 1,000 ML IV SCH ×3 (06:52→22:40)
[2021-04-16 06:56] LABS: Phosphorus 3.2 mg/dL (2.3-4.7)
[2021-04-16] MEDS ORDERED: Gabapentin 300 MG CAP PO SCH ×2 (09:00→09:45)
[2021-04-16] MEDS ORDERED: Lisinopril 20 MG TAB PO SCH (09:00)
[2021-04-16] MEDS ORDERED: Folic Acid 1 MG TAB PO SCH (09:45)
[2021-04-16] MEDS ORDERED: Sodium Chloride 0.9% 500 ML IV SCH (11:15)
[2021-04-16] MEDS ORDERED: Magnesium Oxide 400 MG TAB PO SCH (11:15)
[2021-04-16] MEDS ORDERED: Potassium Chloride 20 MEQ TAB PO SCH (11:15)
[2021-04-16 12:28] LABS: INR-International Normal Ratio 1.1; PTT 35.1 sec (22.9-36.1); Prothrombin Time 14.4 sec (12.0-14.7)
[2021-04-16] MEDS: Folic Acid 1 MG TAB PO SCH (12:49)
[2021-04-16] MEDS: Gabapentin 300 MG CAP PO SCH ×2 (16:23→21:50)
[2021-04-16 20:31] LABS: Hemoglobin 8.5 g/dL (12.0-16.0)
[2021-04-16] MEDS: Cyanocobalamin (Vitamin B-12) 1,000 MCG TAB PO SCH (21:49)
[2021-04-16] MEDS: Thiamine 100 MG TAB PO SCH (21:49)
[2021-04-16] MEDS: Enoxaparin Sodium 40 MG/0.4 ML SYRINGE SC SCH (21:49)
[2021-04-16] MEDS: Nicotine 21 MG PATCH TD SCH (21:50)
[2021-04-16] MEDS: Aluminum & Magnesium Hydroxide 60 ML, Lidocaine 2% Viscous Solution 30 ML, diphenhydrAM... SSP PRN (22:52)
[2021-04-17 05:01] LABS: #Lymphocytes 0.8 thou/uL (1.20-3.40); #Monocytes 0.3 thou/uL (0.11-0.59); #Neutrophils 3.9 thou/uL (1.40-6.50); %Basophils 0.4 % (0.0-1.0); %Eosinophils 0.9 % (0.0-10.0); %Lymphocytes 15.7 % (21.0-51.0); %Monocytes 6.5 % (0.0-10.0); %Neutrophils 76.4 % (42.0-75.0); Mean Corpuscular HGB CONC 32.4 g/dL (32.0-36.0); Mean Corpuscular Hemoglobin 31.4 pg (27.0-31.0); Mean Corpuscular Volume 97.1 fL (78.0-98.0); Mean Platelet Volume 6.8 fL (7.4-10.4); Platelet Count 193 thou/uL (130-400); Red Blood Cell (RBC) Count 2.53 mill/uL (4.20-5.40); White Blood Cell (WBC) Count 5.1 thou/uL (4.8-10.8)
[2021-04-17 05:39] LABS: ALT (SGPT) 21 U/L (8-55); AST (SGOT) 151 U/L (5-34); Albumin 2.3 g/dL (3.4-4.8); Alkaline Phosphatase 155 U/L (40-110); Anion Gap 15 mmol/L (10-20); BUN (Urea Nitrogen) 6 mg/dL (9.8-20.1); Calc. Creatinine Clearance 90 mL/min (70-130); Calcium 7.7 mg/dL (7.8-10.44); Carbon Dioxide 27 mmol/L (23-31); Chloride 98 mmol/L (98-107); Globulin 2.9 g/dL (2.4-3.5); Glucose 89 mg/dL (83-110); Potassium 4.5 mmol/L (3.5-5.1); Protein, Total 5.2 g/dL (5.8-8.1); Sodium 135 mmol/L (136-145)
[2021-04-17] MEDS: Lactated Ringer's 1,000 ML IV SCH ×3 (09:41→21:43)
[2021-04-17] MEDS: Folic Acid 1 MG TAB PO SCH (09:42)
[2021-04-17] MEDS: Gabapentin 300 MG CAP PO SCH ×3 (09:42→21:01)
[2021-04-17] MEDS ORDERED: Polyethylene Glycol 3350 17 GM Packet PO SCH (12:45)
[2021-04-17 15:06] VITALS: BMI 27.9
[2021-04-17] MEDS: Cefepime 1 GM in Sodium Chloride 0.9% 100 ML IVPB SCH (19:28)
[2021-04-17] MEDS: Enoxaparin Sodium 40 MG/0.4 ML SYRINGE SC SCH (21:00)
[2021-04-17] MEDS: Cyanocobalamin (Vitamin B-12) 1,000 MCG TAB PO SCH (21:01)
[2021-04-17] MEDS: Thiamine 100 MG TAB PO SCH (21:02)
[2021-04-17] MEDS: Polyethylene Glycol 3350 17 GM Packet PO SCH (21:02)
[2021-04-17] MEDS: Nicotine 21 MG PATCH TD SCH (21:04)
[2021-04-18] MEDS: Cefepime 1 GM in Sodium Chloride 0.9% 100 ML IVPB SCH (04:41)
[2021-04-18 04:52] LABS: #Eosinphils 0.1 thou/uL (0.0-0.7); #Lymphocytes 1.3 thou/uL (1.20-3.40); #Monocytes 0.4 thou/uL (0.11-0.59); #Neutrophils 3.8 thou/uL (1.40-6.50); %Basophils 0.7 % (0.0-1.0); %Eosinophils 2.1 % (0.0-10.0); %Monocytes 6.3 % (0.0-10.0); %Neutrophils 67.9 % (42.0-75.0); Hemoglobin 8.4 g/dL (12.0-16.0); Mean Corpuscular HGB CONC 31.6 g/dL (32.0-36.0); Mean Corpuscular Hemoglobin 31.1 pg (27.0-31.0); Mean Corpuscular Volume 98.5 fL (78.0-98.0); Mean Platelet Volume 6.8 fL (7.4-10.4); Platelet Count 174 thou/uL (130-400); RBC Distribution Width 15.5 % (11.5-14.5); White Blood Cell (WBC) Count 5.6 thou/uL (4.8-10.8)
[2021-04-18 05:17] LABS: ALT (SGPT) 25 U/L (8-55); AST (SGOT) 143 U/L (5-34); Albumin 2.3 g/dL (3.4-4.8); Alkaline Phosphatase 160 U/L (40-110); Anion Gap 12 mmol/L (10-20); BUN (Urea Nitrogen) 4 mg/dL (9.8-20.1); Bilirubin, Total 3.4 mg/dL (0.2-1.2); Calc. Creatinine Clearance 100 mL/min (70-130); Calcium 7.8 mg/dL (7.8-10.44); Carbon Dioxide 30 mmol/L (23-31); Chloride 99 mmol/L (98-107); Globulin 2.9 g/dL (2.4-3.5); Glucose 77 mg/dL (83-110); Potassium 3.9 mmol/L (3.5-5.1); Protein, Total 5.2 g/dL (5.8-8.1); Sodium 137 mmol/L (136-145)
[2021-04-18] MEDS: Folic Acid 1 MG TAB PO SCH (08:49)
[2021-04-18] MEDS: Gabapentin 300 MG CAP PO SCH ×3 (08:49→20:16)
[2021-04-18] MEDS: Polyethylene Glycol 3350 17 GM Packet PO SCH ×2 (08:49→20:16)
[2021-04-18] MEDS: Lactated Ringer's 1,000 ML IV SCH ×3 (08:50→20:18)
[2021-04-18 12:42] LABS: HBCM Index 0.07 S/CO (0-0.79); HBSAg Index 0.36 S/CO (0-0.99); Hep A IgM AB Non-Reactive (NonReactive); Hep A IgM S/CO 0.22 S/CO (0-0.79); Hep B Surf Ag Non-Reactive S/CO (NonReactive); Hepatitis B Core IgM Abs Non-Reactive (NonReactive)
[2021-04-18] MEDS: Cefepime 2 GM in Sodium Chloride 0.9% 100 ML IVPB SCH (15:50)
[2021-04-18] MEDS: Acetaminophen 325 MG TAB PO PRN (17:20)
[2021-04-18] MEDS: Cyanocobalamin (Vitamin B-12) 1,000 MCG TAB PO SCH (20:15)
[2021-04-18] MEDS: Enoxaparin Sodium 40 MG/0.4 ML SYRINGE SC SCH (20:16)
[2021-04-18] MEDS: Nicotine 21 MG PATCH TD SCH (20:16)
[2021-04-18] MEDS: Thiamine 100 MG TAB PO SCH (20:18)
[2021-04-19] MEDS: Lactated Ringer's 1,000 ML IV SCH (01:40)
[2021-04-19] MEDS: Cefepime 2 GM in Sodium Chloride 0.9% 100 ML IVPB SCH (04:03)
[2021-04-19] MEDS: Acetaminophen 325 MG TAB PO PRN (04:26)
[2021-04-19 05:28] LABS: #Eosinphils 0.2 thou/uL (0.0-0.7); #Lymphocytes 0.8 thou/uL (1.20-3.40); #Monocytes 0.3 thou/uL (0.11-0.59); #Neutrophils 4.9 thou/uL (1.40-6.50); %Basophils 0.3 % (0.0-1.0); %Eosinophils 2.6 % (0.0-10.0); %Lymphocytes 12.9 % (21.0-51.0); %Neutrophils 79.2 % (42.0-75.0); Hemoglobin 7.6 g/dL (12.0-16.0); Mean Corpuscular HGB CONC 32.6 g/dL (32.0-36.0); Mean Corpuscular Hemoglobin 31.7 pg (27.0-31.0); Mean Corpuscular Volume 97.4 fL (78.0-98.0); Mean Platelet Volume 7.2 fL (7.4-10.4); Platelet Count 162 thou/uL (130-400); RBC Distribution Width 15.1 % (11.5-14.5); Red Blood Cell (RBC) Count 2.41 mill/uL (4.20-5.40); White Blood Cell (WBC) Count 6.2 thou/uL (4.8-10.8)
[2021-04-19 05:58] LABS: ALT (SGPT) 24 U/L (8-55); AST (SGOT) 112 U/L (5-34); Albumin 2.2 g/dL (3.4-4.8); Alkaline Phosphatase 159 U/L (40-110); Anion Gap 8 mmol/L (10-20); BUN (Urea Nitrogen) 4 mg/dL (9.8-20.1); Calc. Creatinine Clearance 102 mL/min (70-130); Calcium 7.7 mg/dL (7.8-10.44); Carbon Dioxide 32 mmol/L (23-31); Chloride 96 mmol/L (98-107); Glucose 104 mg/dL (83-110); Potassium 4.2 mmol/L (3.5-5.1); Protein, Total 5.2 g/dL (5.8-8.1); Sodium 132 mmol/L (136-145)
[2021-04-19] MEDS: Aluminum & Magnesium Hydroxide 60 ML, Lidocaine 2% Viscous Solution 30 ML, diphenhydrAM... SSP PRN (06:05)
[2021-04-19] MEDS: Sodium Chloride 0.9% 1,000 ML IV SCH ×2 (09:02→18:02)
[2021-04-19] MEDS ORDERED: Iothalamate Meglumine 60% 50 ML VIAL FS ONE ×3 (09:27→11:53)
[2021-04-19] MEDS ORDERED: Bupivacaine PF 0.5% 30 ML VIAL ONE (09:27)
[2021-04-19] MEDS ORDERED: Xylocaine 1% w/ Epi 1:100K 10 ML VIAL ONE (09:27)
[2021-04-19] MEDS ORDERED: Fentanyl 100 MCG/2 ML VIAL ONE ×2 (09:34→14:26)
[2021-04-19] MEDS ORDERED: Lidocaine 2% Jelly 5 ML TUBE ONE (09:36)
[2021-04-19] MEDS ORDERED: Lidocaine 1% PF 5 ML VIAL ONE (10:26)
[2021-04-19] MEDS ORDERED: Rocuronium Bromide 10 MG/ML (10ML VIAL) ONE (10:26)
[2021-04-19] MEDS ORDERED: PROPOFOL 200 MG/20 ML VIAL ONE (10:26)
[2021-04-19] MEDS: Lisinopril 20 MG TAB PO SCH (10:28)
[2021-04-19] MEDS: Folic Acid 1 MG TAB PO SCH (10:28)
[2021-04-19] MEDS: Gabapentin 300 MG CAP PO SCH ×3 (10:28→21:49)
[2021-04-19] MEDS: Polyethylene Glycol 3350 17 GM Packet PO SCH ×2 (10:28→21:48)
[2021-04-19] MEDS ORDERED: Indomethacin 50 MG SUPP ONE (11:34)
[2021-04-19] MEDS ORDERED: Acetaminophen 500 MG TAB PO PRN (12:36)
[2021-04-19] MEDS ORDERED: Glycopyrrolate 0.2 MG/ML 5 ML SYRINGE ONE (13:22)
[2021-04-19] MEDS ORDERED: Ondansetron HCl/PF 4 MG/2 ML Vial IVP PRN (13:38)
[2021-04-19] MEDS ORDERED: Promethazine HCl 25 MG/ML VIAL IM PRN (13:38)
[2021-04-19] MEDS ORDERED: Promethazine HCl 25 MG/ML VIAL IVPB PRN (13:38)
[2021-04-19] MEDS ORDERED: Ondansetron PF 4 MG/2 ML Vial ONE (13:58)
[2021-04-19 17:16] LABS: #Lymphocytes 0.6 thou/uL (1.20-3.40); #Monocytes 0.5 thou/uL (0.11-0.59); #Neutrophils 10.3 thou/uL (1.40-6.50); %Basophils 0.2 % (0.0-1.0); %Eosinophils 0.4 % (0.0-10.0); %Lymphocytes 4.9 % (21.0-51.0); %Monocytes 4.1 % (0.0-10.0); %Neutrophils 90.4 % (42.0-75.0); Hemoglobin 8.4 g/dL (12.0-16.0); Mean Corpuscular HGB CONC 31.7 g/dL (32.0-36.0); Mean Corpuscular Volume 97.9 fL (78.0-98.0); Mean Platelet Volume 7.4 fL (7.4-10.4); Platelet Count 151 thou/uL (130-400); Red Blood Cell (RBC) Count 2.72 mill/uL (4.20-5.40); White Blood Cell (WBC) Count 11.4 thou/uL (4.8-10.8)
[2021-04-19] MEDS: traMADol HCl 50 MG TAB PO PRN (21:47)
[2021-04-19] MEDS: Enoxaparin Sodium 40 MG/0.4 ML SYRINGE SC SCH (21:48)
[2021-04-19] MEDS: Nicotine 21 MG PATCH TD SCH (21:49)
[2021-04-19] MEDS: Cyanocobalamin (Vitamin B-12) 1,000 MCG TAB PO SCH (21:49)
[2021-04-19] MEDS: Thiamine 100 MG TAB PO SCH (21:50)
[2021-04-20] MEDS: traMADol HCl 50 MG TAB PO PRN ×4 (04:31→22:49)
[2021-04-20] MEDS: Sodium Chloride 0.9% 1,000 ML IV SCH ×3 (04:35→23:07)
[2021-04-20 05:52] LABS: #Eosinphils 0.1 thou/uL (0.0-0.7); #Lymphocytes 0.9 thou/uL (1.20-3.40); #Monocytes 0.4 thou/uL (0.11-0.59); #Neutrophils 8.5 thou/uL (1.40-6.50); %Basophils 0.1 % (0.0-1.0); %Eosinophils 0.7 % (0.0-10.0); %Lymphocytes 8.9 % (21.0-51.0); %Monocytes 4.2 % (0.0-10.0); %Neutrophils 86.1 % (42.0-75.0); Hemoglobin 7.8 g/dL (12.0-16.0); Mean Corpuscular HGB CONC 31.5 g/dL (32.0-36.0); Mean Corpuscular Hemoglobin 31.7 pg (27.0-31.0); Mean Platelet Volume 7.8 fL (7.4-10.4); Platelet Count 143 thou/uL (130-400); RBC Distribution Width 15.2 % (11.5-14.5); Red Blood Cell (RBC) Count 2.46 mill/uL (4.20-5.40); White Blood Cell (WBC) Count 9.9 thou/uL (4.8-10.8)
[2021-04-20 06:03] LABS: ALT (SGPT) 26 U/L (8-55); AST (SGOT) 131 U/L (5-34); Albumin 1.9 g/dL (3.4-4.8); Alkaline Phosphatase 166 U/L (40-110); Anion Gap 17 mmol/L (10-20); BUN (Urea Nitrogen) 4 mg/dL (9.8-20.1); Bilirubin, Total 4.8 mg/dL (0.2-1.2); Calc. Creatinine Clearance 114 mL/min (70-130); Calcium 7.5 mg/dL (7.8-10.44); Carbon Dioxide 19 mmol/L (23-31); Chloride 101 mmol/L (98-107); Globulin 3.3 g/dL (2.4-3.5); Glucose 72 mg/dL (83-110); Potassium 4.6 mmol/L (3.5-5.1); Protein, Total 5.2 g/dL (5.8-8.1); Sodium 132 mmol/L (136-145)
[2021-04-20] MEDS: Polyethylene Glycol 3350 17 GM Packet PO SCH ×2 (08:59→22:42)
[2021-04-20] MEDS: Folic Acid 1 MG TAB PO SCH (08:59)
[2021-04-20] MEDS: Gabapentin 300 MG CAP PO SCH ×3 (09:00→22:43)
[2021-04-20] MEDS: Lisinopril 20 MG TAB PO SCH (09:00)
[2021-04-20] MEDS ORDERED: Ondansetron ODT 8 MG TAB SL PRN (10:21)
[2021-04-20] MEDS: Cyanocobalamin (Vitamin B-12) 1,000 MCG TAB PO SCH (22:42)
[2021-04-20] MEDS: Enoxaparin Sodium 40 MG/0.4 ML SYRINGE SC SCH (22:42)
[2021-04-20] MEDS: Thiamine 100 MG TAB PO SCH (22:43)
[2021-04-20] MEDS: Nicotine 21 MG PATCH TD SCH (22:43)
[2021-04-21 06:58] LABS: #Eosinphils 0.1 thou/uL (0.0-0.7); #Monocytes 0.6 thou/uL (0.11-0.59); #Neutrophils 8.1 thou/uL (1.40-6.50); %Basophils 0.5 % (0.0-1.0); %Eosinophils 1.5 % (0.0-10.0); %Lymphocytes 9.8 % (21.0-51.0); %Monocytes 6.3 % (0.0-10.0); Hemoglobin 7.4 g/dL (12.0-16.0); Mean Corpuscular HGB CONC 32.4 g/dL (32.0-36.0); Mean Corpuscular Hemoglobin 32.2 pg (27.0-31.0); Mean Corpuscular Volume 99.4 fL (78.0-98.0); Mean Platelet Volume 7.6 fL (7.4-10.4); Platelet Count 169 thou/uL (130-400); White Blood Cell (WBC) Count 9.9 thou/uL (4.8-10.8)
[2021-04-21 07:22] LABS: ALT (SGPT) 30 U/L (8-55); AST (SGOT) 133 U/L (5-34); Albumin 2.1 g/dL (3.4-4.8); Alkaline Phosphatase 198 U/L (40-110); Anion Gap 11 mmol/L (10-20); BUN (Urea Nitrogen) 5 mg/dL (9.8-20.1); Bilirubin, Direct 3.4 mg/dL (0.1-0.3); Bilirubin, Total 4.7 mg/dL (0.2-1.2); Calc. Creatinine Clearance 81 mL/min (70-130); Calcium 7.4 mg/dL (7.8-10.44); Carbon Dioxide 26 mmol/L (23-31); Chloride 99 mmol/L (98-107); Globulin 2.9 g/dL (2.4-3.5); Glucose 85 mg/dL (83-110); Potassium 3.6 mmol/L (3.5-5.1); Sodium 132 mmol/L (136-145)
[2021-04-21] MEDS: Gabapentin 300 MG CAP PO SCH ×3 (08:20→20:40)
[2021-04-21] MEDS: Folic Acid 1 MG TAB PO SCH (08:21)
[2021-04-21] MEDS: Lisinopril 20 MG TAB PO SCH (08:21)
[2021-04-21] MEDS: Polyethylene Glycol 3350 17 GM Packet PO SCH ×2 (08:24→20:54)
[2021-04-21] MEDS: traMADol HCl 50 MG TAB PO PRN (08:24)
[2021-04-21] MEDS ORDERED: Polyethylene Glycol 3350 17 GM Packet PO SCH (14:45)
[2021-04-21] MEDS ORDERED: Docusate 100 MG CAP PO SCH (14:45)
[2021-04-21] MEDS: Sodium Chloride 0.9% 1,000 ML IV SCH (16:10)
[2021-04-21] MEDS: Thiamine 100 MG TAB PO SCH (20:40)
[2021-04-21] MEDS: Cyanocobalamin (Vitamin B-12) 1,000 MCG TAB PO SCH (20:40)
[2021-04-21] MEDS: Nicotine 21 MG PATCH TD SCH (20:41)
[2021-04-21] MEDS: Enoxaparin Sodium 40 MG/0.4 ML SYRINGE SC SCH (20:41)
[2021-04-22] MEDS: Sodium Chloride 0.9% 1,000 ML IV SCH (05:37)
[2021-04-22] MEDS: Lisinopril 20 MG TAB PO SCH (08:50)
[2021-04-22] MEDS: Polyethylene Glycol 3350 17 GM Packet PO SCH (08:50)
[2021-04-22] MEDS: Gabapentin 300 MG CAP PO SCH ×2 (08:51→14:58)
[2021-04-22] MEDS: Folic Acid 1 MG TAB PO SCH (08:51)
[2021-04-22] MEDS: traMADol HCl 50 MG TAB PO PRN (08:52)
[2021-04-22 09:59] LABS: #Eosinphils 0.1 thou/uL (0.0-0.7); #Lymphocytes 0.9 thou/uL (1.20-3.40); #Monocytes 0.7 thou/uL (0.11-0.59); #Neutrophils 9.3 thou/uL (1.40-6.50); %Basophils 0.4 % (0.0-1.0); %Eosinophils 0.6 % (0.0-10.0); %Lymphocytes 8.3 % (21.0-51.0); %Monocytes 6.6 % (0.0-10.0); %Neutrophils 84.2 % (42.0-75.0); Mean Corpuscular HGB CONC 31.6 g/dL (32.0-36.0); Mean Corpuscular Hemoglobin 31.8 pg (27.0-31.0); Mean Platelet Volume 8.1 fL (7.4-10.4); Platelet Count 183 thou/uL (130-400); RBC Distribution Width 15.1 % (11.5-14.5); Red Blood Cell (RBC) Count 2.21 mill/uL (4.20-5.40); White Blood Cell (WBC) Count 11.1 thou/uL (4.8-10.8)
[2021-04-22 10:13] LABS: ALT (SGPT) 25 U/L (8-55); AST (SGOT) 73 U/L (5-34); Alkaline Phosphatase 212 U/L (40-110); Anion Gap 11 mmol/L (10-20); BUN (Urea Nitrogen) Less than 4 mg/dL (9.8-20.1); Bilirubin, Total 2.8 mg/dL (0.2-1.2); Calc. Creatinine Clearance 97 mL/min (70-130); Calcium 7.4 mg/dL (7.8-10.44); Carbon Dioxide 23 mmol/L (23-31); Chloride 100 mmol/L (98-107); Globulin 3.2 g/dL (2.4-3.5); Glucose 125 mg/dL (83-110); Potassium 3.9 mmol/L (3.5-5.1); Protein, Total 5.2 g/dL (5.8-8.1); Sodium 130 mmol/L (136-145)
[2021-04-22 12:51] VITALS: BP 111/75; TEMP 98.5
== END 2021-04-22 16:10 | disposition home or self-care (01) | DRG 418 ==
LOC: ERS 14:34 → 2NO 20:11 → SURG A 04-19 10:20
PROVIDERS: ADMIT Family Medicine; ATTEND Family Medicine
PROC: 0FT44ZZ Resection of Gallbladder, Percutaneous Endoscopic Approach (ICD-10-PCS; principal; 2021-04-19)
PROC: BF10YZZ Fluoroscopy of Bile Ducts using Other Contrast (ICD-10-PCS; 2021-04-19)
PROC: 0F798ZZ Dilation of Common Bile Duct, Via Natural or Artificial Opening Endoscopic (ICD-10-PCS; 2021-04-19)
DX: K80.66 Calculus of gallbladder and bile duct with acute and chronic cholecystitis without obstruction (principal); E87.2 Acidosis; E87.1 Hypo-osmolality and hyponatremia; E44.0 Moderate protein-calorie malnutrition; N39.0 Urinary tract infection, site not specified; K31.1 Adult hypertrophic pyloric stenosis; K29.20 Alcoholic gastritis without bleeding; Z20.822 Contact with and (suspected) exposure to COVID-19; K21.9 Gastro-esophageal reflux disease without esophagitis; F17.210 Nicotine dependence, cigarettes, uncomplicated; J44.9 Chronic obstructive pulmonary disease, unspecified; M10.9 Gout, unspecified; F10.20 Alcohol dependence, uncomplicated; E87.6 Hypokalemia; I50.9 Heart failure, unspecified; I11.0 Hypertensive heart disease with heart failure; F32.A Depression, unspecified; F41.9 Anxiety disorder, unspecified; E83.42 Hypomagnesemia; E87.8 Other disorders of electrolyte and fluid balance, not elsewhere classified; B96.5 Pseudomonas (aeruginosa) (mallei) (pseudomallei) as the cause of diseases classified elsewhere; B96.20 Unspecified Escherichia coli [E. coli] as the cause of diseases classified elsewhere; K76.0 Fatty (change of) liver, not elsewhere classified; E66.01 Morbid (severe) obesity due to excess calories; Z79.899 Other long term (current) drug therapy; K57.90 Diverticulosis of intestine, part unspecified, without perforation or abscess without bleeding; Z88.8 Allergy status to other drugs, medicaments and biological substances; Z91.048 Other nonmedicinal substance allergy status; Z68.28 Body mass index [BMI] 28.0-28.9, adult; K22.2 Esophageal obstruction
CPT/HCPCS: 36415; 36430; 47532; 71045; 74177; 74330; 76705; 80053; 80076; 80306; 80307; 81003; 82274; 82550; 82607; 82728; 82746; 83540; 83550; 83605; 83690; 83735; 83880; 84100; 84134; 84443; 84484; 85025; 85610; 85730; 86140; 86705; 86709; 86850; 86900; 86901; 87040; 87077; 87086; 87186; 87340; 87521; 88304; 93005; 93010; C1713; C1769; J0692; J0696; J1610; J1650; J2270; J2405; J2704; J3010; J3370; J3475; J3490; J7030; J7050; J7120; P9016; Q0162; Q0163; Q9961-U8; Q9967; S0020; U0002

== ENCOUNTER 2021-04-24 11:54 | Inpatient (IN) | payer MEDICARE ==
[2021-04-24 17:32] VITALS: BMI 32.2
[2021-04-24 19:34] LABS: Base Excess (BEa) 11.4 mEq/L (-2.0 to +3.0); CO2 Tension 48.3 mmHg (35.0-45.0); Calcium, Ionized (arterial) 1.03 mmol/L (1.12-1.30); Carboxyhemoglobin (COHb) 1.5 gm% (0.0-3.0); Hemoglobin (Hb) 8.2 g/dL (12.0-16.0); O2 Tension (PaO2), arterial 72.9 mmHg (> 70.0); Potassium - ABG Lab 3.41 mmol/L (3.70-5.30); pH, Arterial 7.49 (7.35-7.45)
[2021-04-24 19:36] LABS: ALV-art Gradient 16.455 mmHg (0-20); Puncture Site LRA
[2021-04-24] MEDS: Gabapentin 300 MG CAP PO SCH (21:21)
[2021-04-24] MEDS: Cyanocobalamin (Vitamin B-12) 1,000 MCG TAB PO SCH (21:22)
[2021-04-24] MEDS: Thiamine 100 MG TAB PO SCH (21:22)
[2021-04-25 04:56] LABS: Anion Gap 12 mmol/L (10-20); BUN (Urea Nitrogen) 5 mg/dL (9.8-20.1); Calc. Creatinine Clearance 120 mL/min (70-130); Calcium 7.8 mg/dL (7.8-10.44); Carbon Dioxide 33 mmol/L (23-31); Chloride 93 mmol/L (98-107); Glucose 93 mg/dL (83-110); Potassium 3.5 mmol/L (3.5-5.1); Sodium 134 mmol/L (136-145)
[2021-04-25] MEDS: Furosemide 40 MG/4 ML VIAL SLOW IVP SCH (09:29)
[2021-04-25] MEDS: Lisinopril 20 MG TAB PO SCH (09:29)
[2021-04-25] MEDS: Gabapentin 300 MG CAP PO SCH ×3 (09:30→21:25)
[2021-04-25] MEDS ORDERED: Aquaphor 10 GM TUBE TOP PRN (09:59)
[2021-04-25 10:48] LABS: #Eosinphils 0.1 thou/uL (0.0-0.7); #Monocytes 0.8 thou/uL (0.11-0.59); #Neutrophils 8.5 thou/uL (1.40-6.50); %Basophils 0.1 % (0.0-1.0); %Eosinophils 0.6 % (0.0-10.0); %Lymphocytes 9.7 % (21.0-51.0); %Monocytes 7.7 % (0.0-10.0); %Neutrophils 81.9 % (42.0-75.0); Hemoglobin 8.5 g/dL (12.0-16.0); Mean Corpuscular HGB CONC 32.2 g/dL (32.0-36.0); Mean Corpuscular Hemoglobin 31.3 pg (27.0-31.0); Mean Corpuscular Volume 97.3 fL (78.0-98.0); Platelet Count 175 thou/uL (130-400); RBC Distribution Width 14.7 % (11.5-14.5); Red Blood Cell (RBC) Count 2.71 mill/uL (4.20-5.40); White Blood Cell (WBC) Count 10.4 thou/uL (4.8-10.8)
[2021-04-25] MEDS: Enoxaparin Sodium 40 MG/0.4 ML SYRINGE SC SCH (11:10)
[2021-04-25 11:56] LABS: SARS-CoV-2 PCR by NAA Not Detected (NotDetected)
[2021-04-25] MEDS: Cyanocobalamin (Vitamin B-12) 1,000 MCG TAB PO SCH (21:26)
[2021-04-25] MEDS: Thiamine 100 MG TAB PO SCH (21:26)
[2021-04-26] MEDS ORDERED: Acetaminophen 325 MG TAB PO PRN (01:57)
[2021-04-26] MEDS ORDERED: Gabapentin 300 MG CAP PO SCH (02:45)
[2021-04-26] MEDS: Furosemide 40 MG/4 ML VIAL SLOW IVP SCH (08:47)
[2021-04-26] MEDS: Enoxaparin Sodium 40 MG/0.4 ML SYRINGE SC SCH (08:47)
[2021-04-26] MEDS: Gabapentin 300 MG CAP PO SCH ×3 (08:47→21:15)
[2021-04-26] MEDS: Lisinopril 20 MG TAB PO SCH (08:48)
[2021-04-26 09:21] LABS: #Basophils 0.1 thou/uL (0.0-0.2); #Eosinphils 0.1 thou/uL (0.0-0.7); #Lymphocytes 1.3 thou/uL (1.20-3.40); #Monocytes 0.7 thou/uL (0.11-0.59); #Neutrophils 7.5 thou/uL (1.40-6.50); %Basophils 0.6 % (0.0-1.0); %Eosinophils 0.5 % (0.0-10.0); %Lymphocytes 13.7 % (21.0-51.0); %Monocytes 7.2 % (0.0-10.0); Hemoglobin 7.4 g/dL (12.0-16.0); Mean Corpuscular HGB CONC 31.8 g/dL (32.0-36.0); Mean Corpuscular Hemoglobin 31.2 pg (27.0-31.0); Mean Corpuscular Volume 98.1 fL (78.0-98.0); Mean Platelet Volume 7.2 fL (7.4-10.4); Platelet Count 168 thou/uL (130-400); RBC Distribution Width 14.6 % (11.5-14.5); Red Blood Cell (RBC) Count 2.37 mill/uL (4.20-5.40); White Blood Cell (WBC) Count 9.6 thou/uL (4.8-10.8)
[2021-04-26 09:45] LABS: BUN (Urea Nitrogen) 5 mg/dL (9.8-20.1); Calc. Creatinine Clearance 100 mL/min (70-130); Calcium 7.6 mg/dL (7.8-10.44); Glucose 80 mg/dL (83-110)
[2021-04-26 09:55] LABS: Anion Gap 13 mmol/L (10-20); Carbon Dioxide 34 mmol/L (23-31); Chloride 91 mmol/L (98-107); Potassium 3.1 mmol/L (3.5-5.1); Sodium 135 mmol/L (136-145)
[2021-04-26] MEDS: Acetaminophen 325 MG TAB PO SCH ×3 (10:56→21:48)
[2021-04-26] MEDS ORDERED: Furosemide 40 MG/4 ML VIAL SLOW IVP SCH (14:00)
[2021-04-26] MEDS: Potassium Chloride 20 MEQ in Premix Bag 1 BAG IVPB SCH ×2 (14:07→17:12)
[2021-04-26] MEDS: Nystatin 500,000 UNITS/5 ML UDCUP SSW SCH ×3 (14:07→21:15)
[2021-04-26] MEDS: Diclofenac 1% 100 GM GEL TP SCH ×3 (14:08→21:14)
[2021-04-26] MEDS: Cyanocobalamin (Vitamin B-12) 1,000 MCG TAB PO SCH (21:15)
[2021-04-26] MEDS: Thiamine 100 MG TAB PO SCH (21:16)
[2021-04-26] MEDS ORDERED: diphenhydrAMINE 25 MG CAP PO SCH (23:00)
[2021-04-27] MEDS: Ibuprofen 600 MG TAB PO SCH ×2 (00:08→03:00)
[2021-04-27] MEDS ORDERED: Morphine 4 MG/ML VIAL SLOW IVP SCH (02:00)
[2021-04-27] MEDS: Acetaminophen 325 MG TAB PO SCH ×4 (05:23→22:12)
[2021-04-27 05:40] LABS: Band 10 % (5-11); Hemoglobin 7.2 g/dL (12.0-16.0); Hypochromia SLIGHT = 6-15 cells (100X) (0-5/hpf); Lymphocytes 9 % (21-51); MDiff Complete? YES; Mean Corpuscular HGB CONC 31.1 g/dL (32.0-36.0); Mean Corpuscular Hemoglobin 30.5 pg (27.0-31.0); Mean Corpuscular Volume 98.1 fL (78.0-98.0); Mean Platelet Volume 7.2 fL (7.4-10.4); Monocytes 11 % (0-10); Neutrophil 70 % (42-75); Platelet Count 161 thou/uL (130-400); Platelet Morphology Comment Appears Adequate; RBC Distribution Width 14.1 % (11.5-14.5); Red Blood Cell (RBC) Count 2.36 mill/uL (4.20-5.40); White Blood Cell (WBC) Count 8.5 thou/uL (4.8-10.8)
[2021-04-27 05:44] LABS: BUN (Urea Nitrogen) 7 mg/dL (9.8-20.1); Calc. Creatinine Clearance 97 mL/min (70-130); Calcium 7.2 mg/dL (7.8-10.44); Glucose 76 mg/dL (83-110)
[2021-04-27 05:59] LABS: Anion Gap 14 mmol/L (10-20); Carbon Dioxide 36 mmol/L (23-31); Chloride 89 mmol/L (98-107); Sodium 136 mmol/L (136-145)
[2021-04-27 06:00] LABS: Potassium 2.8 mmol/L (3.5-5.1)
[2021-04-27] MEDS ORDERED: Potassium Chloride 20 MEQ in Premix Bag 1 BAG IVPB SCH (06:30)
[2021-04-27] MEDS ORDERED: Furosemide 40 MG TAB PO SCH (09:00)
[2021-04-27] MEDS: Enoxaparin Sodium 40 MG/0.4 ML SYRINGE SC SCH (09:28)
[2021-04-27] MEDS: Gabapentin 300 MG CAP PO SCH ×3 (09:28→22:07)
[2021-04-27] MEDS: Potassium Chloride 20 MEQ TAB PO SCH (09:28)
[2021-04-27] MEDS: Diclofenac 1% 100 GM GEL TP SCH ×4 (09:29→22:10)
[2021-04-27] MEDS: Lisinopril 20 MG TAB PO SCH (09:29)
[2021-04-27] MEDS: Nystatin 500,000 UNITS/5 ML UDCUP SSW SCH ×4 (09:29→22:08)
[2021-04-27] MEDS ORDERED: diphenhydrAMINE 12.5 MG/5 ML UDCUP PO SCH (12:00)
[2021-04-27 13:12] LABS: BUN (Urea Nitrogen) 7 mg/dL (9.8-20.1); Calc. Creatinine Clearance 93 mL/min (70-130); Calcium 7.2 mg/dL (7.8-10.44); Glucose 90 mg/dL (83-110)
[2021-04-27 13:22] LABS: Anion Gap 12 mmol/L (10-20); Carbon Dioxide 36 mmol/L (23-31); Chloride 88 mmol/L (98-107); Sodium 133 mmol/L (136-145)
[2021-04-27] MEDS ORDERED: Potassium Chloride 20 MEQ TAB PO SCH (17:45)
[2021-04-27] MEDS: Cyanocobalamin (Vitamin B-12) 1,000 MCG TAB PO SCH (22:03)
[2021-04-27] MEDS: Thiamine 100 MG TAB PO SCH (22:08)
[2021-04-28] MEDS: Acetaminophen 325 MG TAB PO SCH ×3 (04:23→16:37)
[2021-04-28 04:42] LABS: #Eosinphils 0.1 thou/uL (0.0-0.7); #Lymphocytes 1.1 thou/uL (1.20-3.40); #Monocytes 0.5 thou/uL (0.11-0.59); #Neutrophils 6.9 thou/uL (1.40-6.50); %Basophils 0.2 % (0.0-1.0); %Eosinophils 0.9 % (0.0-10.0); %Neutrophils 79.9 % (42.0-75.0); Hemoglobin 7.3 g/dL (12.0-16.0); Mean Corpuscular HGB CONC 30.9 g/dL (32.0-36.0); Mean Corpuscular Hemoglobin 30.7 pg (27.0-31.0); Mean Corpuscular Volume 99.2 fL (78.0-98.0); Mean Platelet Volume 7.3 fL (7.4-10.4); Platelet Count 164 thou/uL (130-400); RBC Distribution Width 14.2 % (11.5-14.5); Red Blood Cell (RBC) Count 2.36 mill/uL (4.20-5.40); White Blood Cell (WBC) Count 8.7 thou/uL (4.8-10.8)
[2021-04-28 05:05] LABS: BUN (Urea Nitrogen) 7 mg/dL (9.8-20.1); Calc. Creatinine Clearance 93 mL/min (70-130); Glucose 76 mg/dL (83-110)
[2021-04-28 05:14] LABS: Anion Gap 9 mmol/L (10-20); Chloride 91 mmol/L (98-107); Potassium 3.9 mmol/L (3.5-5.1); Sodium 137 mmol/L (136-145)
[2021-04-28 05:18] LABS: Carbon Dioxide 41 mmol/L (23-31)
[2021-04-28 06:08] LABS: Phosphorus 2.2 mg/dL (2.3-4.7)
[2021-04-28 06:10] LABS: Magnesium 1.2 mg/dL (1.6-2.6)
[2021-04-28] MEDS ORDERED: Lisinopril 20 MG TAB PO SCH (08:16)
[2021-04-28] MEDS ORDERED: acetaZOLAMIDE Sodium 500 mg Vial IVP SCH (08:30)
[2021-04-28] MEDS ORDERED: Folic Acid 1 MG TAB PO SCH (09:00)
[2021-04-28] MEDS ORDERED: Magnesium 2 GM/50 ML 2 GM in Premix Bag 1 BAG IVPB SCH (09:00)
[2021-04-28] MEDS ORDERED: PHOS-NAK 1 PKT PACK PO SCH ×2 (09:00→14:15)
[2021-04-28] MEDS ORDERED: Lisinopril 10 MG TAB PO SCH (09:00)
[2021-04-28] MEDS ORDERED: Multivit, Chewable SF 1 TAB PO SCH (09:00)
[2021-04-28] MEDS: Enoxaparin Sodium 40 MG/0.4 ML SYRINGE SC SCH (09:17)
[2021-04-28] MEDS: Gabapentin 300 MG CAP PO SCH ×3 (09:18→20:14)
[2021-04-28] MEDS: Nystatin 500,000 UNITS/5 ML UDCUP SSW SCH ×4 (09:18→20:15)
[2021-04-28] MEDS: Potassium Chloride 20 MEQ TAB PO SCH (09:19)
[2021-04-28] MEDS: Diclofenac 1% 100 GM GEL TP SCH ×4 (09:23→20:16)
[2021-04-28 14:03] LABS: Anion Gap 11 mmol/L (10-20); BUN (Urea Nitrogen) 7 mg/dL (9.8-20.1); Calc. Creatinine Clearance 90 mL/min (70-130); Carbon Dioxide 35 mmol/L (23-31); Chloride 92 mmol/L (98-107); Glucose 121 mg/dL (83-110); Magnesium 1.8 mg/dL (1.6-2.6); Potassium 3.3 mmol/L (3.5-5.1); Sodium 135 mmol/L (136-145)
[2021-04-28 14:08] LABS: Phosphorus 1.9 mg/dL (2.3-4.7)
[2021-04-28 15:20] LABS: Anion Gap 12 mmol/L (10-20); BUN (Urea Nitrogen) 7 mg/dL (9.8-20.1); Calc. Creatinine Clearance 93 mL/min (70-130); Calcium 6.9 mg/dL (7.8-10.44); Carbon Dioxide 33 mmol/L (23-31); Chloride 94 mmol/L (98-107); Glucose 90 mg/dL (83-110); Potassium 3.8 mmol/L (3.5-5.1); Sodium 135 mmol/L (136-145)
[2021-04-28 15:39] VITALS: BP 107/51; TEMP 97.8
[2021-04-28] MEDS: Cyanocobalamin (Vitamin B-12) 1,000 MCG TAB PO SCH (20:15)
[2021-04-28] MEDS: Thiamine 100 MG TAB PO SCH (20:15)
== END 2021-04-28 20:45 | DRG 291 ==
LOC: ERHOLD 11:54 → 2NO 17:03
PROVIDERS: ADMIT Emergency Medicine; ATTEND Emergency Medicine
DX: I11.0 Hypertensive heart disease with heart failure (principal); I50.33 Acute on chronic diastolic (congestive) heart failure; E87.1 Hypo-osmolality and hyponatremia; N39.0 Urinary tract infection, site not specified; Z20.822 Contact with and (suspected) exposure to COVID-19; F17.210 Nicotine dependence, cigarettes, uncomplicated; F10.11 Alcohol abuse, in remission; D64.9 Anemia, unspecified; J44.9 Chronic obstructive pulmonary disease, unspecified; M10.9 Gout, unspecified; E66.9 Obesity, unspecified; E87.6 Hypokalemia; Z90.49 Acquired absence of other specified parts of digestive tract; Z68.30 Body mass index [BMI] 30.0-30.9, adult; Z88.5 Allergy status to narcotic agent; Z88.8 Allergy status to other drugs, medicaments and biological substances; Z79.899 Other long term (current) drug therapy
CPT/HCPCS: 36415; 36416; 36600; 80048; 82805; 83735; 84100; 85025; 97139; J1120; J1650; J1940; J2270; J3475; J3480; Q0163; U0003; U0005